=== PATIENT | female | born 1945 | race Caucasian/White ===

== ENCOUNTER 2017-08-29 18:06 | Inpatient (IN) | payer MEDICARE, OTHER ==
[~2017-08-29] VITALS: Ht 152.4 cm; Wt 43.6 kg
[2017-08-29] MEDS ORDERED: METHYL SALICYLATE/MENTHOL TOPICAL OINTMENT 29GM TUBE. TP PRN (19:30)
[2017-08-29] MEDS ORDERED: MAGNESIUM HYDROXIDE 2,400 MG/30 ML ORAL.SUSP. PO PRN (19:30)
[2017-08-29] MEDS ORDERED: MAG HYDROX/AL HYDROX/SIMETH 30 ML ORAL.SUSP PO PRN (19:30)
[2017-08-29 19:56] VITALS: BP 172/75
--- NOTE | 2017-08-29 20:52 | PDOC ---
Exam Note: Alvin Note: Please also refer to the separate dictated note~for this date of service dictated separately.~Patient seen individually. Discussed the patient with Nursing staff reviewed the chart.~Reviewed interim history and current functioning. Reviewed vital signs,~Labs/ Radiology~and current medications noted below. Continue current treatment with the changes noted in the dictated addendum note Assessment: Vital Signs: Vital Signs Date Time Temp Pulse Resp B/P (MAP) Pulse Ox O2 Delivery O2 Flow Rate FiO2 08/29/17 19:56 98.0 67 20 172/75 (107) 94 Current Medications: Meds: Current Medications Acetaminophen (Tylenol) 650 mg PRN Q6HRS PRN PO PAIN / TEMP; Start 08/29/17 at 19:30 Multi-Ingredient Ointment (Analgesic [place]) 1 tia PRN QID PRN TP MUSCLE PAIN; Start 08/29/17 at 19:30 Al Hydroxide/Mg Hydroxide (Mylanta Plus Xs) 15 ml PRN AFTMEALHC PRN PO DYSPEPSIA; Start 08/29/17 at 19:30 Magnesium Hydroxide (Milk Of Magnesia) 2,400 mg PRN QHS PRN PO CONSTIPATION; Start 08/29/17 at 19:30 I have reviewed the current psychotropics carefully including drug interactions. Risk benefit ratio favors no change other than as noted in my dictated progress note. HODA FERRELL MD Aug 29, 2017 20:51
[2017-08-29 20:53] LABS: BASO % 1 % (0-3); EOS # 0.1 x10^3/uL (0.0-0.7); EOS % 2 % (0-3); HEMATOCRIT 34.8 % (36.0-47.0); HEMOGLOBIN 11.8 g/dL (12.0-15.5); LYMPH # 0.6 x10^3/uL (1.0-4.8); LYMPH % 13 % (24-48); MEAN CORPUSCULAR HEMOGLOBIN 33 pg (25-35); MEAN CORPUSCULAR HGB CONC 34 g/dL (31-37); MEAN CORPUSCULAR VOLUME 97 fL (79-100); MONO # 0.5 x10^3/uL (0.0-1.1); MONO % 11 % (0-9); NEUT # 3.1 x10^3uL (1.8-7.7); NEUT % 72 % (31-73); PLATELET COUNT 258 x10^3/uL (140-400); RED BLOOD COUNT 3.59 x10^6/uL (3.50-5.40); RED CELL DISTRIBUTION WIDTH 17.9 % (11.5-14.5); WHITE BLOOD COUNT 4.2 x10^3/uL (4.0-11.0)
[2017-08-29 21:03] LABS: ALBUMIN 3.8 g/dL (3.4-5.0); ALBUMIN/GLOBULIN RATIO 1.2 (1.0-1.7); CALCIUM 9.7 mg/dL (8.5-10.1); CREATININE 0.8 mg/dL (0.6-1.0); GFR 70.7; POTASSIUM 4.3 mmol/L (3.5-5.1); TOTAL BILIRUBIN 0.2 mg/dL (0.2-1.0); TOTAL PROTEIN 7.1 g/dL (6.4-8.2)
[2017-08-29] MEDS ORDERED: DICY10CA3 PO (21:51)
[2017-08-29] MEDS ORDERED: NICO1PAT25 TD (21:51)
[2017-08-29] MEDS ORDERED: OLAN5TAB3 PO (21:51)
[2017-08-29] MEDS ORDERED: LACT1CAP6 PO (21:51)
[2017-08-29] MEDS ORDERED: OXCA300T3 PO (21:51)
[2017-08-29] MEDS ORDERED: DONE5TAB7 PO (21:51)
[2017-08-29] MEDS ORDERED: LAMO150T3 PO (21:51)
[2017-08-29] MEDS ORDERED: PANT40TA5 PO (21:51)
[2017-08-29] MEDS ORDERED: FLUT16SP21 NS (21:51)
[2017-08-29] MEDS ORDERED: IPRA3AMP NEB (21:51)
[2017-08-29] MEDS ORDERED: LOSA50TA2 PO (21:51)
[2017-08-29] MEDS ORDERED: SULF1TAB24 PO (21:51)
[2017-08-29] MEDS ORDERED: LORA1TAB PO (21:51)
[2017-08-29] MEDS ORDERED: MINO2.5T12 PO (21:51)
[2017-08-29] MEDS ORDERED: ESCITALOPRAM OX10 MG PO (21:51)
[2017-08-29] MEDS ORDERED: LORA0.5T PO (21:51)
[2017-08-29] MEDS ORDERED: IPRATRPIUM/ALBUTEROL 0.5/2.5MG 3 ML NEBU. NEB PRN (22:00)
[2017-08-29 22:45] LABS: BILIRUBIN,URINE NEG (NEG); CLARITY,URINE HAZY; COLOR,URINE YELLOW; GLUCOSE,URINE NEG (NEG)
[2017-08-29 22:46] LABS: BACTERIA,URINE MOD /HPF (0-FEW); HYALINE CASTS, URINE FEW /HPF; NITRITE,URINE POS (NEG); SQUAMOUS EPITHELIAL CELL,UR FEW /LPF; UROBILINOGEN,URINE 0.2 mg/dL (0.2 mg/dL); YEAST,URINE PRESENT /HPF
[2017-08-29] MEDS: lamoTRIgine 150 MG TABLET. PO SCH (22:49)
[2017-08-29] MEDS: LORazepam 1 MG TABLET PO SCH (22:49)
[2017-08-29] MEDS: DICYCLOMINE HCL 10 MG CAPSULE PO SCH (22:49)
[2017-08-29] MEDS: DONEPEZIL HCL 5 MG TABLET. PO SCH (22:49)
[2017-08-29] MEDS: SMZ/TMP 800/160MG TABLET. PO SCH (22:49)
[2017-08-30 06:07] VITALS: BP 179/74
[2017-08-30] MEDS: LORazepam 0.5 MG TABLET PO SCH ×2 (10:27→16:03)
[2017-08-30] MEDS: lamoTRIgine 150 MG TABLET. PO SCH ×2 (10:27→20:05)
[2017-08-30] MEDS: SMZ/TMP 800/160MG TABLET. PO SCH ×2 (10:28→20:05)
[2017-08-30] MEDS: CITALOPRAM 20 MG TABLET. PO SCH (10:28)
[2017-08-30] MEDS: DICYCLOMINE HCL 10 MG CAPSULE PO SCH ×2 (10:28→20:05)
[2017-08-30] MEDS: NICOTINE 14MG PATCH. TD SCH (10:28)
[2017-08-30] MEDS: LACTOBACILLUS RHAMNOSUS GG 1 CAPSULE. PO SCH ×2 (10:28→20:05)
[2017-08-30] MEDS: LOSARTAN 50 MG TABLET. PO SCH (10:29)
[2017-08-30] MEDS: PANTOPRAZOLE 40 MG TABLET. PO SCH (10:29)
[2017-08-30] MEDS: MINOXIDIL 2.5 MG TABLET PO SCH (10:30)
[2017-08-30] MEDS: FLUTICASONE 50MCG/NASAL SPRAY 16GM BOTTLE. NS SCH (10:30)
[2017-08-30] MEDS: ACETAMINOPHEN 325 MG TABLET PO PRN ×2 (10:52→21:22)
[2017-08-30 15:36] VITALS: BP 141/71
--- NOTE | 2017-08-30 18:28 | PDOC ---
Exam Note: Alvin Note: Please also refer to the separate dictated note~for this date of service dictated separately.~Patient seen individually. Discussed the patient with Nursing staff reviewed the chart.~Reviewed interim history and current functioning. Reviewed vital signs,~Labs/ Radiology~and current medications noted below. Continue current treatment with the changes noted in the dictated addendum note Assessment: Vital Signs: Vital Signs Date Time Temp Pulse Resp B/P (MAP) Pulse Ox O2 Delivery O2 Flow Rate FiO2 08/30/17 15:36 97.6 84 16 141/71 (94) 95 I&O Intake and Output 08/30/17 07:00 Intake Total 240 ml Output Total 800 ml Balance -560 ml Intake Oral 240 ml Output Urine Total 800 ml # Voids 1 # Bowel Movements 1 Labs: Laboratory Tests Test 08/29/17 19:50 08/29/17 21:00 White Blood Count 4.2 x10^3/uL (4.0-11.0) Red Blood Count 3.59 x10^6/uL (3.50-5.40) Hemoglobin 11.8 g/dL (12.0-15.5) L Hematocrit 34.8 % (36.0-47.0) L Mean Corpuscular Volume 97 fL (79-100) Mean Corpuscular Hemoglobin 33 pg (25-35) Mean Corpuscular Hemoglobin Concent 34 g/dL (31-37) Red Cell Distribution Width 17.9 % (11.5-14.5) H Platelet Count 258 x10^3/uL (140-400) Neutrophils (%) (Auto) 72 % (31-73) Lymphocytes (%) (Auto) 13 % (24-48) L Monocytes (%) (Auto) 11 % (0-9) H Eosinophils (%) (Auto) 2 % (0-3) Basophils (%) (Auto) 1 % (0-3) Neutrophils # (Auto) 3.1 x10^3uL (1.8-7.7) Lymphocytes # (Auto) 0.6 x10^3/uL (1.0-4.8) L Monocytes # (Auto) 0.5 x10^3/uL (0.0-1.1) Eosinophils # (Auto) 0.1 x10^3/uL (0.0-0.7) Basophils # (Auto) 0.0 x10^3/uL (0.0-0.2) Sodium Level 138 mmol/L (136-145) Potassium Level 4.3 mmol/L (3.5-5.1) Chloride Level 101 mmol/L (98-107) Carbon Dioxide Level 26 mmol/L (21-32) Anion Gap 11 (6-14) Blood Urea Nitrogen 20 mg/dL (7-20) Creatinine 0.8 mg/dL (0.6-1.0) Estimated GFR (Cockcroft-Gault) 70.7 BUN/Creatinine Ratio 25 (6-20) H Glucose Level 92 mg/dL (70-99) Calcium Level 9.7 mg/dL (8.5-10.1) Magnesium Level 2.0 mg/dL (1.8-2.4) Total Bilirubin 0.2 mg/dL (0.2-1.0) Aspartate Amino Transferase (AST) 15 U/L (15-37) Alanine Aminotransferase (ALT) 18 U/L (14-59) Alkaline Phosphatase 84 U/L (46-116) Total Protein 7.1 g/dL (6.4-8.2) Albumin 3.8 g/dL (3.4-5.0) Albumin/Globulin Ratio 1.2 (1.0-1.7) Urine Collection Type Unknown Urine Color Yellow Urine Clarity Hazy Urine pH 7.0 Urine Specific [place] 1.015 Urine Protein Neg (NEG-TRACE) Urine Glucose (UA) Neg mg/dL (NEG) Urine Ketones (Stick) Neg mg/dL (NEG) Urine Blood Trace (NEG) Urine Nitrite Pos (NEG) Urine Bilirubin Neg (NEG) Urine Urobilinogen Dipstick 0.2 mg/dL (0.2 mg/dL) Urine Leukocyte Esterase Small (NEG) Urine RBC 3-5 /HPF (0-2) Urine WBC 5-10 /HPF (0-4) Urine Squamous Epithelial Cells Few /LPF Urine Bacteria Mod /HPF (0-FEW) Urine Hyaline Casts Few /HPF Urine Mucus Slight /LPF Urine Yeast Present /HPF Current Medications: Meds: Current Medications Acetaminophen (Tylenol) 650 mg PRN Q6HRS PRN PO PAIN / TEMP Last administered on 08/30/17at 10:52; Start 08/29/17 at 19:30 Multi-Ingredient Ointment (Analgesic [place]) 1 tia PRN QID PRN TP MUSCLE PAIN; Start 08/29/17 at 19:30 Al Hydroxide/Mg Hydroxide (Mylanta Plus Xs) 15 ml PRN AFTMEALHC PRN PO DYSPEPSIA; Start 08/29/17 at 19:30 Magnesium Hydroxide (Milk Of Magnesia) 2,400 mg PRN QHS PRN PO CONSTIPATION; Start 08/29/17 at 19:30 Donepezil HCl (Aricept) 5 mg HS PO Last administered on 08/29/17at 22:49; Start 08/29/17 at 23:00 Lorazepam (Ativan) 0.75 mg BID94 PO Last administered on 08/30/17 16:03; Start 08/30/17 at 09:00 Lorazepam (Ativan) 1 mg HS PO Last administered on 08/29/17at 22:49; Start 08/29 at 23:00 Olanzapine (ZyPREXA) 5 mg PRN BID PRN PO ANXIETY / AGITATION; Start 08/29/17 at 22:00 Dicyclomine HCl (Bentyl) 10 mg BID PO Last administered on 08/30/17at 10:28; Start 08/29/17 at 23:00 Fluticasone Propionate (Flonase) 2 spray DAILY NS Last administered on at 10:30; Start 08/30/17 at 09:00 Albuterol/ Ipratropium (Duoneb) 3 ml PRN Q4HRS PRN NEB SHORTNESS OF BREATH; Start 08/29/17 at 22:00 Lamotrigine (LaMICtal) 150 mg BID PO Last administered on 08/30/17at 10:27; Start 08/29/17 at 23:00 Losartan Potassium (Cozaar) 50 mg DAILY PO Last administered on 08/30/17at 10:29 ; Start 08/30/17 at 09:00 Minoxidil (Loniten) 10 mg DAILY PO Last administered on 08/30/17at 10:30; Start 08/30/17 at 09:00 Nicotine (Nicoderm Cq 14mg) 1 patch DAILY TD Last administered on 08/30/17at 10: 28; Start 08/30/17 at 09:00 Oxcarbazepine (Trileptal) 600 mg BID PO Last administered on 08/30/17 10:28; Start 08/30/17 at 09:00 Pantoprazole Sodium (Protonix) 40 mg DAILY PO Last administered on 08/30/17at 10 :29; Start 08/30/17 at 09:00 Trimethoprim/ Sulfamethoxazole (Bactrim Ds) 1 tab BID PO Last administered on 10:28; Start 08/29/17 at 23:00 Citalopram Hydrobromide (CeleXA) 20 mg DAILY PO Last administered on 08/30/17 10:28; Start 08/30/17 at 09:00 Lactobacillus Rhamnosus (Culturelle) 1 cap BID PO Last administered on 10:28; Start 08/30/17 at 09:00 Active Scripts Active Reported Bactrim Ds Tablet (Sulfamethoxazole/Trimethoprim) 1 Each Tablet 1 Each PO BID Pantoprazole Sodium 40 Mg Tablet.dr 40 Mg PO DAILY Trileptal (Oxcarbazepine) 300 Mg Tablet 600 Mg PO BID Zyprexa (Olanzapine) 5 Mg Tablet 5 Mg PO PRN BID PRN NICODERM CQ 14mg (Nicotine) 1 Each Patch.td24 1 Patch TD DAILY Minoxidil 2.5 Mg Tablet 10 Mg PO DAILY Cozaar (Losartan Potassium) 50 Mg Tablet 50 Mg PO DAILY Lorazepam 1 Mg Tablet 1 Mg PO HS Lorazepam 0.5 Mg Tablet 0.75 Mg PO BID94 Lamictal (Lamotrigine) 150 Mg Tablet 150 Mg PO BID Probiotic (Lactobacillus Acidophilus) 1 Each Capsule 1 Each PO TIDWMEALS Duoneb 0.5-3(2.5) Mg/3 Ml (Albuterol/Ipratropium) 3 Ml Ampul.neb 3 Ml NEB PRN Q4HRS PRN Fluticasone Propionate Nasal [place] (Fluticasone Propionate) 16 Gm [place].susp 2 [place] NS DAILY Escitalopram Oxalate 10 Mg Tablet 10 Mg PO DAILY Donepezil Hcl 5 Mg Tablet 5 Mg PO HS Dicyclomine Hcl 10 Mg Capsule 10 Mg PO BID I have reviewed the current psychotropics carefully including drug interactions. Risk benefit ratio favors no change other than as noted in my dictated progress note. Diagnosis: Problems: (1) Anxiety disorder (2) Dementia in Alzheimer's disease with delusions (3) Dementia in Alzheimer's disease with depression (4) Impulse control disorder (5) Dementia, vascular, with delusions (6) Dementia, vascular, with depression (7) Major depressive disorder, recurrent episode (8) Psychotic depression HODA FERRELL MD Aug 30, 2017 18:28
--- NOTE | 2017-08-30 19:06 | HP ---
ADMIT DATE: 08/30/2017 This note covers elements not covered in my initial note of 08/30/2017. The patient was seen individually evening of 08/30/2017. Discussed with nursing staff, reviewed the chart. Previously, I had discussed with nursing staff on 2 or 3 occasions to review history resulting in this referral to us from [facility]. The patient was initially sent to the Emergency Room at [facility] [place] and then admitted to inpatient service before we were called on account of her suicidal ideation. IDENTIFYING DATA: The patient is a 72-year-old female who resides at [facility]. She has been increasingly confused, recently getting combative, hitting, scratching at staff, verbally abusive to staff. She banged her head on the wall and made suicidal statements. She said she had a suicidal plan. Has been noted to be very needy, disruptive, attention seeking, depressed, psychotic and confused. She has failed outpatient psychiatric interventions resulting in this referral. CHIEF COMPLAINT: "I get frustrated very easily." HISTORY OF PRESENT ILLNESS: The patient has a history of worsening symptoms of depression, feeling hopeless, helpless, worthless, paranoia, marked agitation, mood swings, worsening confusion. She has had some sleep and appetite changes, appeared paranoid. No active homicidal ideation. No clear history of bipolar disorder. She has been increasingly confused. PAST PSYCHIATRIC HISTORY: As above. MEDICAL HISTORY: COPD, hypertension, hyperlipidemia, neuropathy, seizure disorder, history of UTIs, history of pneumonia. ACCU-CHEKS: None. DIET: Regular. Takes her medications whole, ambulates wheelchair with 1 person assist. CODE STATUS: Full code. DRUG ALLERGIES: Negative. CURRENT PSYCHOTROPICS: Aricept 5 mg at bedtime, Lexapro 10 mg a day, Ativan 0.75 mg b.i.d. and 1 mg at bedtime, Zyprexa 5 mg b.i.d. p.r.n. FAMILY HISTORY: Noncontributory. SOCIAL HISTORY: Positive history of alcohol abuse, though she is unable to tell me details as I questioned her on this. She states she worked and lived most of her life in [facility] moved to this area to get away from the crowded space in that area. No physical, sexual or elder abuse history is noted. She is not known to be a perpetrator. MENTAL STATUS EXAMINATION: The patient was seen individually evening of 08/30/2017. She is oriented to herself and situation, knew that she was admitted the previous evening, knew it was 08/2017. Short term memory nevertheless is somewhat impaired. Attention span short. Mood is depressed, anxious. She is paranoid, suspicious. Denies active suicidal ideation. Attention span short. Language function intact. REACTION TO HOSPITALIZATION: The patient accepting of this. ASSETS: Stable living at the above facility, supportive family. IMPRESSION: Major depressive disorder, recurrent, severe with psychotic features; major neurocognitive disorder, early Alzheimer, vascular with delusion, depression; anxiety disorder, unspecified; impulse control disorder, unspecified. Rest as above. PLAN: Admit to geropsychiatry unit at [facility]. I will see the patient daily individually from a psychiatric standpoint. Medical followup per Dr. Da Silva/Dr Moreno. Continue current psychotropics, observe baseline and adjust as clinically indicated. MAN Lavon FERRELL MD DR: ETHAN/hernesto JOB#: [id number] / [id number]
[2017-08-30] MEDS: LORazepam 1 MG TABLET PO SCH (20:04)
[2017-08-30] MEDS: DONEPEZIL HCL 5 MG TABLET. PO SCH (20:04)
[2017-08-30 20:11] LABS: T3 TOTAL 71 ng/dL (71-180); THYROXINE 5.9 ug/dL (4.5-12.0)
--- NOTE | 2017-08-30 20:52 | PDOC ---
Exam Note: Alvin Note: Please also refer to the separate dictated note~for this date of service dictated separately.~Patient seen individually. Discussed the patient with Nursing staff reviewed the chart.~Reviewed interim history and current functioning. Reviewed vital signs,~Labs/ Radiology~and current medications noted below. Continue current treatment with the changes noted in the dictated addendum note Assessment: Vital Signs: Vital Signs Date Time Temp Pulse Resp B/P (MAP) Pulse Ox O2 Delivery O2 Flow Rate FiO2 08/30/17 15:36 97.6 84 16 141/71 (94) 95 I&O Intake and Output 08/30/17 07:00 Intake Total 240 ml Output Total 800 ml Balance -560 ml Intake Oral 240 ml Output Urine Total 800 ml # Voids 1 # Bowel Movements 1 Labs: Laboratory Tests Test 08/29/17 21:00 Urine Collection Type Unknown Urine Color Yellow Urine Clarity Hazy Urine pH 7.0 Urine Specific [place] 1.015 Urine Protein Neg (NEG-TRACE) Urine Glucose (UA) Neg mg/dL (NEG) Urine Ketones (Stick) Neg mg/dL (NEG) Urine Blood Trace (NEG) Urine Nitrite Pos (NEG) Urine Bilirubin Neg (NEG) Urine Urobilinogen Dipstick 0.2 mg/dL (0.2 mg/dL) Urine Leukocyte Esterase Small (NEG) Urine RBC 3-5 /HPF (0-2) Urine WBC 5-10 /HPF (0-4) Urine Squamous Epithelial Cells Few /LPF Urine Bacteria Mod /HPF (0-FEW) Urine Hyaline Casts Few /HPF Urine Mucus Slight /LPF Urine Yeast Present /HPF Current Medications: Meds: Current Medications Acetaminophen (Tylenol) 650 mg PRN Q6HRS PRN PO PAIN / TEMP Last administered on 08/30/17at 10:52; Start 08/29/17 at 19:30 Multi-Ingredient Ointment (Analgesic [place]) 1 tia PRN QID PRN TP MUSCLE PAIN; Start 08/29/17 at 19:30 Al Hydroxide/Mg Hydroxide (Mylanta Plus Xs) 15 ml PRN AFTMEALHC PRN PO DYSPEPSIA; Start 08/29/17 at 19:30 Magnesium Hydroxide (Milk Of Magnesia) 2,400 mg PRN QHS PRN PO CONSTIPATION; Start 08/29/17 at 19:30 Donepezil HCl (Aricept) 5 mg HS PO Last administered on 08/30/17 20:04; Start 08/29/17 at 23:00 Lorazepam (Ativan) 0.75 mg BID94 PO Last administered on 08/30/17 16:03; Start 08/30/17 at 09:00 Lorazepam (Ativan) 1 mg HS PO Last administered on 08/30/17 20:04; Start 08/29 at 23:00 Olanzapine (ZyPREXA) 5 mg PRN BID PRN PO ANXIETY / AGITATION; Start 08/29/17 at 22:00 Dicyclomine HCl (Bentyl) 10 mg BID PO Last administered on 08/30/17 20:05; Start 08/29/17 at 23:00 Fluticasone Propionate (Flonase) 2 spray DAILY NS Last administered on 10:30; Start 08/30/17 at 09:00 Albuterol/ Ipratropium (Duoneb) 3 ml PRN Q4HRS PRN NEB SHORTNESS OF BREATH; Start 08/29/17 at 22:00 Lamotrigine (LaMICtal) 150 mg BID PO Last administered on 08/30/17 20:05; Start 08/29/17 at 23:00 Losartan Potassium (Cozaar) 50 mg DAILY PO Last administered on 08/30/17 10:29 ; Start 08/30/17 at 09:00 Minoxidil (Loniten) 10 mg DAILY PO Last administered on 08/30/17 10:30; Start 08/30/17 at 09:00 Nicotine (Nicoderm Cq 14mg) 1 patch DAILY TD Last administered on 08/30/17 10: 28; Start 08/30/17 at 09:00 Oxcarbazepine (Trileptal) 600 mg BID PO Last administered on 08/30/17 20:05; Start 08/30/17 at 09:00 Pantoprazole Sodium (Protonix) 40 mg DAILY PO Last administered on 08/30/17 10 :29; Start 08/30/17 at 09:00 Trimethoprim/ Sulfamethoxazole (Bactrim Ds) 1 tab BID PO Last administered on 20:05; Start 08/29/17 at 23:00 Citalopram Hydrobromide (CeleXA) 20 mg DAILY PO Last administered on 08/30/17at 10:28; Start 08/30/17 at 09:00 Lactobacillus Rhamnosus (Culturelle) 1 cap BID PO Last administered on at 20:05; Start 08/30/17 at 09:00 Active Scripts Active Reported Bactrim Ds Tablet (Sulfamethoxazole/Trimethoprim) 1 Each Tablet 1 Each PO BID Pantoprazole Sodium 40 Mg Tablet.dr 40 Mg PO DAILY Trileptal (Oxcarbazepine) 300 Mg Tablet 600 Mg PO BID Zyprexa (Olanzapine) 5 Mg Tablet 5 Mg PO PRN BID PRN NICODERM CQ 14mg (Nicotine) 1 Each Patch.td24 1 Patch TD DAILY Minoxidil 2.5 Mg Tablet 10 Mg PO DAILY Cozaar (Losartan Potassium) 50 Mg Tablet 50 Mg PO DAILY Lorazepam 1 Mg Tablet 1 Mg PO HS Lorazepam 0.5 Mg Tablet 0.75 Mg PO BID94 Lamictal (Lamotrigine) 150 Mg Tablet 150 Mg PO BID Probiotic (Lactobacillus Acidophilus) 1 Each Capsule 1 Each PO TIDWMEALS Duoneb 0.5-3(2.5) Mg/3 Ml (Albuterol/Ipratropium) 3 Ml Ampul.neb 3 Ml NEB PRN Q4HRS PRN Fluticasone Propionate Nasal [place] (Fluticasone Propionate) 16 Gm [place].susp 2 [place] NS DAILY Escitalopram Oxalate 10 Mg Tablet 10 Mg PO DAILY Donepezil Hcl 5 Mg Tablet 5 Mg PO HS Dicyclomine Hcl 10 Mg Capsule 10 Mg PO BID I have reviewed the current psychotropics carefully including drug interactions. Risk benefit ratio favors no change other than as noted in my dictated progress note. Diagnosis: Problems: (1) Anxiety disorder (2) Impulse control disorder (3) Psychotic depression (4) Major depressive disorder, recurrent episode (5) Dementia, vascular, with depression (6) Dementia, vascular, with delusions (7) Dementia in Alzheimer's disease with depression (8) Dementia in Alzheimer's disease with delusions HODA FERRELL MD Aug 30, 2017 20:52
[2017-08-30 23:32] LABS: THYROID STIM HORMONE (TSH) 1.38 uIU/mL (0.358-3.740)
[2017-08-30 23:53] VITALS: BP 159/85
--- NOTE | 2017-08-31 01:43 | CONS ---
DATE OF CONSULTATION: 08/30/2017 REASON FOR CONSULTATION: Medical management. HISTORY OF PRESENT ILLNESS: The patient is a 72-year-old resident at [facility], who was admitted on the account of being combative, hitting and scratching verbally abusive towards staff, banged her head on the wall and made suicidal attempt, has suicidal ideation plan, very needy, disruptive and attention seeking, all this in a background of dementia with depression and behavioral disturbances. PAST MEDICAL HISTORY: Significant for COPD, hypertension, hyperlipidemia, neuropathy, seizure disorder, history of urinary tract infection, history of pneumonia. PAST PSYCHIATRIC HISTORY: Significant for dementia with depression with significant behavioral disturbances. PAST SURGICAL HISTORY: Unobtainable. FAMILY HISTORY: Unremarkable SOCIAL HISTORY: She is a resident at [facility]. She does not smoke, drink alcohol or use any recreational drugs. REVIEW OF SYSTEMS: Unobtainable. PHYSICAL EXAMINATION: GENERAL: On examining her, she was sitting comfortably in her chair, eating her supper, in no apparent distress, was pale, but no jaundice, cyanosis or thyromegaly. No jugular venous distension. No lower limb edema. VITAL SIGNS: Her heart rate was 84, blood pressure 141/71, temperature was 97.6, respiratory rate was 16, and oxygen saturation was 95% on room air. HEAD, EYES, EARS, NOSE AND THROAT: Showed normocephalic, atraumatic. NECK: Supple. HEART: Showed normal first and second heart sounds with no gallop, rub or murmur. CHEST: Clear to auscultation. No crepitation or rhonchi. ABDOMEN: Distended, soft, nontender. NEUROLOGIC: She is demented, but without any obvious lateralizing sign. All cranial nerves are intact. EXTREMITIES: She moves extremities without difficulty. LABORATORY DATA: As of this morning showed white cell count was 4200, hemoglobin 11.8, hematocrit 34, MCV 97 and platelet count 258,000. Her serum sodium was 138, potassium 4.3, chloride was 101, bicarbonate 26, anion gap of 11, BUN 20, creatinine 0.8. Estimated GFR was 70 mL per minute. Her glucose was 92. Calcium was 9.7. Magnesium 2. Total bilirubin, AST, ALT, alkaline phosphatase were normal. Total protein was 7.1, albumin was 3.8 and urinalysis showed the urine was yellow, hazy with a pH of 7, specific gravity 1.017. The urine was negative for protein, glucose and ketones. There was trace amount of blood. Urine was positive for nitrite, negative for bilirubin. There was small amount of leukocyte esterase, 3-5 rbc's, 5-10 wbc's. There was moderate amount of urine. IMPRESSION: In summary, this is a 72-year-old female patient, who was admitted on account of being combative, hitting and scratching, verbally abusive towards the staff, banging her head on the wall and made suicidal attempts, suicidal ideation and very needy, very disruptive, aggressive, and attention seeking. So far, all her vital signs and her lab works are stable. I would continue with current plan of management and decide further management accordingly. 08/31/2017Thank you Dr. Leon for allowing me to participate in the care of this patient. SARAHI WALLER MD DR: LUIS/hernesto JOB#: [id number] / [id number]
[2017-08-31 04:09] LABS: HEMOGLOBIN A1C 4.8 % (4.8-5.6)
[2017-08-31 06:36] VITALS: BP 162/76
[2017-08-31] MEDS: PANTOPRAZOLE 40 MG TABLET. PO SCH (09:00)
[2017-08-31] MEDS: LACTOBACILLUS RHAMNOSUS GG 1 CAPSULE. PO SCH ×2 (09:00→19:42)
[2017-08-31] MEDS: SMZ/TMP 800/160MG TABLET. PO SCH (09:00)
[2017-08-31] MEDS: FLUTICASONE 50MCG/NASAL SPRAY 16GM BOTTLE. NS SCH ×2 (09:00→09:02)
[2017-08-31] MEDS: NICOTINE 14MG PATCH. TD SCH (09:00)
[2017-08-31] MEDS: DICYCLOMINE HCL 10 MG CAPSULE PO SCH ×2 (09:00→19:42)
[2017-08-31] MEDS: LOSARTAN 50 MG TABLET. PO SCH (09:01)
[2017-08-31] MEDS: lamoTRIgine 150 MG TABLET. PO SCH ×2 (09:01→19:42)
[2017-08-31] MEDS: CITALOPRAM 20 MG TABLET. PO SCH (09:01)
[2017-08-31] MEDS: MINOXIDIL 2.5 MG TABLET PO SCH (09:02)
[2017-08-31] MEDS: LORazepam 0.5 MG TABLET PO SCH ×2 (09:05→16:31)
[2017-08-31] MEDS: ACETAMINOPHEN 325 MG TABLET PO PRN ×2 (10:20→20:12)
[2017-08-31] MEDS: OLANZapine 5 MG TABLET PO PRN (13:28)
[2017-08-31 16:13] VITALS: BP 146/92
[2017-08-31] MEDS: DONEPEZIL HCL 5 MG TABLET. PO SCH (19:42)
[2017-08-31] MEDS: AMOXICILLIN 250 MG CAPSULE PO SCH (19:44)
[2017-08-31] MEDS: CIPROFLOXACIN HCL 250 MG TABLET PO SCH (19:44)
--- NOTE | 2017-08-31 20:47 | PDOC ---
Exam Note: Alvin Note: Please also refer to the separate dictated note~for this date of service dictated separately.~Patient seen individually. Discussed the patient with Nursing staff reviewed the chart.~Reviewed interim history and current functioning. Reviewed vital signs,~Labs/ Radiology~and current medications noted below. Continue current treatment with the changes noted in the dictated addendum note Assessment: Vital Signs: Vital Signs Date Time Temp Pulse Resp B/P (MAP) Pulse Ox O2 Delivery O2 Flow Rate FiO2 08/31/17 16:13 99.0 86 16 146/92 (110) 95 I&O Intake and Output 08/31/17 07:00 Intake Total 600 ml Balance 600 ml Intake Oral 600 ml # Bowel Movements 1 Current Medications: Meds: Current Medications Acetaminophen (Tylenol) 650 mg PRN Q6HRS PRN PO PAIN / TEMP Last administered on 08/31/17at 20:12; Start 08/29/17 at 19:30 Multi-Ingredient Ointment (Analgesic [place]) 1 tia PRN QID PRN TP MUSCLE PAIN; Start 08/29/17 at 19:30 Al Hydroxide/Mg Hydroxide (Mylanta Plus Xs) 15 ml PRN AFTMEALHC PRN PO DYSPEPSIA; Start 08/29/17 at 19:30 Magnesium Hydroxide (Milk Of Magnesia) 2,400 mg PRN QHS PRN PO CONSTIPATION; Start 08/29/17 at 19:30 Donepezil HCl (Aricept) 5 mg HS PO Last administered on 08/31/17at 19:42; Start 08/29/17 at 23:00 Lorazepam (Ativan) 0.75 mg [id number] PO Last administered on 08/31/17at 16:31; Start 08/30/17 at 09:00 Lorazepam (Ativan) 1 mg HS PO Last administered on 08/30/17at 20:04; Start 08/29 at 23:00; Stop 08/31/17 at 18:25; Status DC Olanzapine (ZyPREXA) 5 mg PRN BID PRN PO ANXIETY / AGITATION; Start 08/29/17 at 22:00 Dicyclomine HCl (Bentyl) 10 mg BID PO Last administered on 08/31/17at 19:42; Start 08/29/17 at 23:00 Fluticasone Propionate (Flonase) 2 spray DAILY NS Last administered on 10:30; Start 08/30/17 at 09:00 Albuterol/ Ipratropium (Duoneb) 3 ml PRN Q4HRS PRN NEB SHORTNESS OF BREATH; Start 08/29/17 at 22:00 Lamotrigine (LaMICtal) 150 mg BID PO Last administered on 08/31/17 19:42; Start 08/29/17 at 23:00 Losartan Potassium (Cozaar) 50 mg DAILY PO Last administered on 08/31/17 09:01 ; Start 08/30/17 at 09:00 Minoxidil (Loniten) 10 mg DAILY PO Last administered on 08/31/17 09:02; Start 08/30/17 at 09:00 Nicotine (Nicoderm Cq 14mg) 1 patch DAILY TD Last administered on 08/30/17 10: 28; Start 08/30/17 at 09:00 Oxcarbazepine (Trileptal) 600 mg BID PO Last administered on 08/31/17 19:42; Start 08/30/17 at 09:00 Pantoprazole Sodium (Protonix) 40 mg DAILY PO Last administered on 08/31/17 09 :00; Start 08/30/17 at 09:00 Trimethoprim/ Sulfamethoxazole (Bactrim Ds) 1 tab BID PO Last administered on 09:00; Start 08/29/17 at 23:00; Stop 08/31/17 at 16:19; Status DC Citalopram Hydrobromide (CeleXA) 20 mg DAILY PO Last administered on 08/31/17 09:01; Start 08/30/17 at 09:00 Lactobacillus Rhamnosus (Culturelle) 1 cap BID PO Last administered on 19:42; Start 08/30/17 at 09:00 Amoxicillin (Amoxil) 500 mg [id number] PO Last administered on 08/31/17 19:44; Start 08/31/17 at 21:00 Ciprofloxacin (Cipro) 250 mg BID PO Last administered on 08/31/17 19:44; Start 08/31/17 at 21:00 Lactobacillus Rhamnosus (Culturelle) 1 cap BID PO ; Start 08/31/17 at 21:00; Stop 08/31/17 at 21:00; Status DC Lorazepam (Ativan) 0.75 mg HS PO ; Start 09/01/17 at 21:00 Lorazepam (Ativan) 1 mg QHS PO Last administered on 08/31/17at 19:42; Start at 21:00; Stop 09/01/17 at 20:30 Active Scripts Active Reported Bactrim Ds Tablet (Sulfamethoxazole/Trimethoprim) 1 Each Tablet 1 Each PO BID Pantoprazole Sodium 40 Mg Tablet.dr 40 Mg PO DAILY Trileptal (Oxcarbazepine) 300 Mg Tablet 600 Mg PO BID Zyprexa (Olanzapine) 5 Mg Tablet 5 Mg PO PRN BID PRN NICODERM CQ 14mg (Nicotine) 1 Each Patch.td24 1 Patch TD DAILY Minoxidil 2.5 Mg Tablet 10 Mg PO DAILY Cozaar (Losartan Potassium) 50 Mg Tablet 50 Mg PO DAILY Lorazepam 1 Mg Tablet 1 Mg PO HS Lorazepam 0.5 Mg Tablet 0.75 Mg PO BID94 Lamictal (Lamotrigine) 150 Mg Tablet 150 Mg PO BID Probiotic (Lactobacillus Acidophilus) 1 Each Capsule 1 Each PO TIDWMEALS Duoneb 0.5-3(2.5) Mg/3 Ml (Albuterol/Ipratropium) 3 Ml Ampul.neb 3 Ml NEB PRN Q4HRS PRN Fluticasone Propionate Nasal [place] (Fluticasone Propionate) 16 Gm [place].susp 2 [place] NS DAILY Escitalopram Oxalate 10 Mg Tablet 10 Mg PO DAILY Donepezil Hcl 5 Mg Tablet 5 Mg PO HS Dicyclomine Hcl 10 Mg Capsule 10 Mg PO BID I have reviewed the current psychotropics carefully including drug interactions. Risk benefit ratio favors no change other than as noted in my dictated progress note. 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
[2017-08-31] MEDS ORDERED: LACTOBACILLUS RHAMNOSUS GG 1 CAPSULE. PO SCH (21:00)
[2017-08-31] MEDS ORDERED: LORazepam 1 MG TABLET PO SCH (21:00)
[2017-09-01 06:26] VITALS: BP 194/104
[2017-09-01] MEDS: LOSARTAN 50 MG TABLET. PO SCH (06:26)
[2017-09-01] MEDS: MINOXIDIL 2.5 MG TABLET PO SCH (06:27)
[2017-09-01] MEDS: ACETAMINOPHEN 325 MG TABLET PO PRN ×3 (06:30→19:48)
[2017-09-01] MEDS: DICYCLOMINE HCL 10 MG CAPSULE PO SCH ×2 (08:38→19:48)
[2017-09-01] MEDS: CIPROFLOXACIN HCL 250 MG TABLET PO SCH ×2 (08:38→19:48)
[2017-09-01] MEDS: lamoTRIgine 150 MG TABLET. PO SCH ×2 (08:39→19:48)
[2017-09-01] MEDS: PANTOPRAZOLE 40 MG TABLET. PO SCH (08:39)
[2017-09-01] MEDS: LACTOBACILLUS RHAMNOSUS GG 1 CAPSULE. PO SCH ×2 (08:39→19:48)
[2017-09-01] MEDS: CITALOPRAM 20 MG TABLET. PO SCH (08:39)
[2017-09-01] MEDS: AMOXICILLIN 250 MG CAPSULE PO SCH ×3 (08:39→19:48)
[2017-09-01] MEDS: FLUTICASONE 50MCG/NASAL SPRAY 16GM BOTTLE. NS SCH ×2 (08:39→09:00)
[2017-09-01] MEDS: LORazepam 0.5 MG TABLET PO SCH ×3 (08:39→19:51)
[2017-09-01] MEDS: NICOTINE 14MG PATCH. TD SCH ×2 (08:40→09:00)
[2017-09-01 08:45] VITALS: BP 136/74
[2017-09-01] MEDS: OLANZapine 5 MG TABLET PO PRN (14:24)
[2017-09-01 16:26] VITALS: BP 126/86
--- NOTE | 2017-09-01 19:44 | PDOC ---
Exam Note: Alvin Note: Please also refer to the separate dictated note~for this date of service dictated separately.~Patient seen individually. Discussed the patient with Nursing staff reviewed the chart.~Reviewed interim history and current functioning. Reviewed vital signs,~Labs/ Radiology~and current medications noted below. Continue current treatment with the changes noted in the dictated addendum note Assessment: Vital Signs: Vital Signs Date Time Temp Pulse Resp B/P (MAP) Pulse Ox O2 Delivery O2 Flow Rate FiO2 09/01/17 16:26 97.5 79 18 126/86 (99) 97 Room Air I&O Intake and Output 09/01/17 07:00 Intake Total 600 ml Output Total 900 ml Balance -300 ml Intake Oral 600 ml Output Urine Total 900 ml # Bowel Movements 1 Current Medications: Meds: Current Medications Acetaminophen (Tylenol) 650 mg PRN Q6HRS PRN PO PAIN / TEMP Last administered on 09/01/17at 12:51; Start 08/29/17 at 19:30 Multi-Ingredient Ointment (Analgesic [place]) 1 tia PRN QID PRN TP MUSCLE PAIN; Start 08/29/17 at 19:30 Al Hydroxide/Mg Hydroxide (Mylanta Plus Xs) 15 ml PRN AFTMEALHC PRN PO DYSPEPSIA; Start 08/29/17 at 19:30 Magnesium Hydroxide (Milk Of Magnesia) 2,400 mg PRN QHS PRN PO CONSTIPATION; Start 08/29/17 at 19:30 Donepezil HCl (Aricept) 5 mg HS PO Last administered on 08/31/17at 19:42; Start 08/29/17 at 23:00 Lorazepam (Ativan) 0.75 mg [id number] PO Last administered on 09/01/17at 16:13; Start 08/30/17 at 09:00 Lorazepam (Ativan) 1 mg HS PO Last administered on 08/30/17at 20:04; Start 08/29 at 23:00; Stop 08/31/17 at 18:25; Status DC Olanzapine (ZyPREXA) 5 mg PRN BID PRN PO ANXIETY / AGITATION Last administered on 09/01/17at 14:24; Start 08/29/17 at 22:00 Dicyclomine HCl (Bentyl) 10 mg BID PO Last administered on 09/01/17at 08:38; Start 08/29/17 at 23:00 Fluticasone Propionate (Flonase) 2 spray DAILY NS Last administered on 10:30; Start 08/30/17 at 09:00 Albuterol/ Ipratropium (Duoneb) 3 ml PRN Q4HRS PRN NEB SHORTNESS OF BREATH; Start 08/29/17 at 22:00 Lamotrigine (LaMICtal) 150 mg BID PO Last administered on 09/01/17 08:39; Start 08/29/17 at 23:00 Losartan Potassium (Cozaar) 50 mg DAILY PO Last administered on 09/01/17 06:26 ; Start 08/30/17 at 09:00 Minoxidil (Loniten) 10 mg DAILY PO Last administered on 09/01/17 06:27; Start 08/30/17 at 09:00 Nicotine (Nicoderm Cq 14mg) 1 patch DAILY TD Last administered on 08/30/17 10: 28; Start 08/30/17 at 09:00 Oxcarbazepine (Trileptal) 600 mg BID PO Last administered on 09/01/17 08:39; Start 08/30/17 at 09:00 Pantoprazole Sodium (Protonix) 40 mg DAILY PO Last administered on 09/01/17 08 :39; Start 08/30/17 at 09:00 Trimethoprim/ Sulfamethoxazole (Bactrim Ds) 1 tab BID PO Last administered on 09:00; Start 08/29/17 at 23:00; Stop 08/31/17 at 16:19; Status DC Citalopram Hydrobromide (CeleXA) 20 mg DAILY PO Last administered on 09/01/17 08:39; Start 08/30/17 at 09:00; Stop 09/01/17 at 18:32; Status DC Lactobacillus Rhamnosus (Culturelle) 1 cap BID PO Last administered on 08:39; Start 08/30/17 at 09:00 Amoxicillin (Amoxil) 500 mg [id number] PO Last administered on 09/01/17 14:24; Start 08/31/17 at 21:00 Ciprofloxacin (Cipro) 250 mg BID PO Last administered on 09/01/17at 08:38; Start 08/31/17 at 21:00 Lactobacillus Rhamnosus (Culturelle) 1 cap BID PO ; Start 08/31/17 at 21:00; Stop 08/31/17 at 21:00; Status DC Lorazepam (Ativan) 0.75 mg HS PO ; Start 09/01/17 at 21:00 Lorazepam (Ativan) 1 mg QHS PO Last administered on 08/31/17at 19:42; Start at 21:00; Stop 09/01/17 at 20:30 Fluvoxamine Maleate (Luvox) 25 mg QHS PO ; Start 09/01/17 at 21:00 Active Scripts Active Reported Bactrim Ds Tablet (Sulfamethoxazole/Trimethoprim) 1 Each Tablet 1 Each PO BID Pantoprazole Sodium 40 Mg Tablet.dr 40 Mg PO DAILY Trileptal (Oxcarbazepine) 300 Mg Tablet 600 Mg PO BID Zyprexa (Olanzapine) 5 Mg Tablet 5 Mg PO PRN BID PRN NICODERM CQ 14mg (Nicotine) 1 Each Patch.td24 1 Patch TD DAILY Minoxidil 2.5 Mg Tablet 10 Mg PO DAILY Cozaar (Losartan Potassium) 50 Mg Tablet 50 Mg PO DAILY Lorazepam 1 Mg Tablet 1 Mg PO HS Lorazepam 0.5 Mg Tablet 0.75 Mg PO BID94 Lamictal (Lamotrigine) 150 Mg Tablet 150 Mg PO BID Probiotic (Lactobacillus Acidophilus) 1 Each Capsule 1 Each PO TIDWMEALS Duoneb 0.5-3(2.5) Mg/3 Ml (Albuterol/Ipratropium) 3 Ml Ampul.neb 3 Ml NEB PRN Q4HRS PRN Fluticasone Propionate Nasal [place] (Fluticasone Propionate) 16 Gm [place].susp 2 [place] NS DAILY Escitalopram Oxalate 10 Mg Tablet 10 Mg PO DAILY Donepezil Hcl 5 Mg Tablet 5 Mg PO HS Dicyclomine Hcl 10 Mg Capsule 10 Mg PO BID I have reviewed the current psychotropics carefully including drug interactions. Risk benefit ratio favors no change other than as noted in my dictated progress note. 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
[2017-09-01] MEDS: DONEPEZIL HCL 5 MG TABLET. PO SCH (19:48)
[2017-09-02 06:19] VITALS: BP 137/60
[2017-09-02] MEDS: PANTOPRAZOLE 40 MG TABLET. PO SCH (08:59)
[2017-09-02] MEDS: AMOXICILLIN 250 MG CAPSULE PO SCH ×3 (08:59→19:59)
[2017-09-02] MEDS: LORazepam 0.5 MG TABLET PO SCH ×3 (08:59→21:08)
[2017-09-02] MEDS: lamoTRIgine 150 MG TABLET. PO SCH ×2 (08:59→19:58)
[2017-09-02] MEDS: DICYCLOMINE HCL 10 MG CAPSULE PO SCH ×2 (08:59→20:00)
[2017-09-02] MEDS: LACTOBACILLUS RHAMNOSUS GG 1 CAPSULE. PO SCH ×2 (08:59→19:59)
[2017-09-02] MEDS: MINOXIDIL 2.5 MG TABLET PO SCH (09:00)
[2017-09-02] MEDS: CIPROFLOXACIN HCL 250 MG TABLET PO SCH ×2 (09:00→20:03)
[2017-09-02] MEDS: NICOTINE 14MG PATCH. TD SCH ×2 (09:00→09:01)
[2017-09-02] MEDS: LOSARTAN 50 MG TABLET. PO SCH (09:00)
[2017-09-02] MEDS: FLUTICASONE 50MCG/NASAL SPRAY 16GM BOTTLE. NS SCH (09:02)
[2017-09-02] MEDS: OLANZapine 5 MG TABLET PO PRN (13:04)
[2017-09-02] MEDS: ACETAMINOPHEN 325 MG TABLET PO PRN ×2 (14:11→23:19)
[2017-09-02 16:47] VITALS: BP 128/55
[2017-09-02] MEDS: DONEPEZIL HCL 5 MG TABLET. PO SCH (20:00)
--- NOTE | 2017-09-02 22:09 | PDOC ---
Exam Note: Alvin Note: Please also refer to the separate dictated note~for this date of service dictated separately.~Patient seen individually. Discussed the patient with Nursing staff reviewed the chart.~Reviewed interim history and current functioning. Reviewed vital signs,~Labs/ Radiology~and current medications noted below. Continue current treatment with the changes noted in the dictated addendum note Assessment: Vital Signs: Vital Signs Date Time Temp Pulse Resp B/P (MAP) Pulse Ox O2 Delivery O2 Flow Rate FiO2 09/02/17 16:47 97.8 98 18 128/55 (79) 97 09/01/17 16:26 Room Air I&O Intake and Output 09/02/17 07:00 Intake Total 1320 ml Output Total 50 ml Balance 1270 ml Intake Oral 1320 ml Output Urine Total 50 ml # Bowel Movements 1 Current Medications: Meds: Current Medications Acetaminophen (Tylenol) 650 mg PRN Q6HRS PRN PO PAIN / TEMP Last administered on 09/02/17at 14:11; Start 08/29/17 at 19:30 Multi-Ingredient Ointment (Analgesic [place]) 1 tia PRN QID PRN TP MUSCLE PAIN; Start 08/29/17 at 19:30 Al Hydroxide/Mg Hydroxide (Mylanta Plus Xs) 15 ml PRN AFTMEALHC PRN PO DYSPEPSIA; Start 08/29/17 at 19:30 Magnesium Hydroxide (Milk Of Magnesia) 2,400 mg PRN QHS PRN PO CONSTIPATION; Start 08/29/17 at 19:30 Donepezil HCl (Aricept) 5 mg HS PO Last administered on 09/02/17at 20:00; Start 08/29/17 at 23:00 Lorazepam (Ativan) 0.75 mg [id number] PO Last administered on 09/02/17at 16:30; Start 08/30/17 at 09:00 Lorazepam (Ativan) 1 mg HS PO Last administered on 08/30/17at 20:04; Start 08/29 at 23:00; Stop 08/31/17 at 18:25; Status DC Olanzapine (ZyPREXA) 5 mg PRN BID PRN PO ANXIETY / AGITATION Last administered on 09/02/17at 13:04; Start 08/29/17 at 22:00 Dicyclomine HCl (Bentyl) 10 mg BID PO Last administered on 09/02/17 20:00; Start 08/29/17 at 23:00 Fluticasone Propionate (Flonase) 2 spray DAILY NS Last administered on 09:02; Start 08/30/17 at 09:00 Albuterol/ Ipratropium (Duoneb) 3 ml PRN Q4HRS PRN NEB SHORTNESS OF BREATH; Start 08/29/17 at 22:00 Lamotrigine (LaMICtal) 150 mg BID PO Last administered on 09/02/17 19:58; Start 08/29/17 at 23:00 Losartan Potassium (Cozaar) 50 mg DAILY PO Last administered on 09/02/17 09:00 ; Start 08/30/17 at 09:00 Minoxidil (Loniten) 10 mg DAILY PO Last administered on 09/02/17 09:00; Start 08/30/17 at 09:00 Nicotine (Nicoderm Cq 14mg) 1 patch DAILY TD Last administered on 08/30/17 10: 28; Start 08/30/17 at 09:00 Oxcarbazepine (Trileptal) 600 mg BID PO Last administered on 09/02/17 20:00; Start 08/30/17 at 09:00 Pantoprazole Sodium (Protonix) 40 mg DAILY PO Last administered on 09/02/17 08 :59; Start 08/30/17 at 09:00 Trimethoprim/ Sulfamethoxazole (Bactrim Ds) 1 tab BID PO Last administered on 09:00; Start 08/29/17 at 23:00; Stop 08/31/17 at 16:19; Status DC Citalopram Hydrobromide (CeleXA) 20 mg DAILY PO Last administered on 09/01/17at 08:39; Start 08/30/17 at 09:00; Stop 09/01/17 at 18:32; Status DC Lactobacillus Rhamnosus (Culturelle) 1 cap BID PO Last administered on 19:59; Start 08/30/17 at 09:00 Amoxicillin (Amoxil) 500 mg [id number] PO Last administered on 09/02/17 19:59; Start 08/31/17 at 21:00 Ciprofloxacin (Cipro) 250 mg BID PO Last administered on 4/15/18at 20:03; Start 08/31/17 at 21:00 Lactobacillus Rhamnosus (Culturelle) 1 cap BID PO ; Start 08/31/17 at 21:00; Stop 08/31/17 at 21:00; Status DC Lorazepam (Ativan) 0.75 mg HS PO Last administered on 09/02/17at 21:08; Start at 21:00 Lorazepam (Ativan) 1 mg QHS PO Last administered on 08/31/17at 19:42; Start at 21:00; Stop 09/01/17 at 20:30; Status DC Fluvoxamine Maleate (Luvox) 25 mg QHS PO Last administered on 09/02/17at 19:59; Start 09/01/17 at 21:00 Active Scripts Active Reported Bactrim Ds Tablet (Sulfamethoxazole/Trimethoprim) 1 Each Tablet 1 Each PO BID Pantoprazole Sodium 40 Mg Tablet.dr 40 Mg PO DAILY Trileptal (Oxcarbazepine) 300 Mg Tablet 600 Mg PO BID Zyprexa (Olanzapine) 5 Mg Tablet 5 Mg PO PRN BID PRN NICODERM CQ 14mg (Nicotine) 1 Each Patch.td24 1 Patch TD DAILY Minoxidil 2.5 Mg Tablet 10 Mg PO DAILY Cozaar (Losartan Potassium) 50 Mg Tablet 50 Mg PO DAILY Lorazepam 1 Mg Tablet 1 Mg PO HS Lorazepam 0.5 Mg Tablet 0.75 Mg PO BID94 Lamictal (Lamotrigine) 150 Mg Tablet 150 Mg PO BID Probiotic (Lactobacillus Acidophilus) 1 Each Capsule 1 Each PO TIDWMEALS Duoneb 0.5-3(2.5) Mg/3 Ml (Albuterol/Ipratropium) 3 Ml Ampul.neb 3 Ml NEB PRN Q4HRS PRN Fluticasone Propionate Nasal [place] (Fluticasone Propionate) 16 Gm [place].susp 2 [place] NS DAILY Escitalopram Oxalate 10 Mg Tablet 10 Mg PO DAILY Donepezil Hcl 5 Mg Tablet 5 Mg PO HS Dicyclomine Hcl 10 Mg Capsule 10 Mg PO BID I have reviewed the current psychotropics carefully including drug interactions. Risk benefit ratio favors no change other than as noted in my dictated progress note. 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
--- NOTE | 2017-09-02 23:41 | PN ---
DATE: 08/31/2017 This late entry 08/31/2017 covers elements not covered in my initial note 08/31/2017. I met with the patient evening of 08/31/2017. The patient refused some of her medications previous evening, dropped herself out of the bed the previous evening, grabbing people, abusive, aggressive, disruptive. REVIEW OF SYSTEMS: Ambulation impaired, in beach chair. No CV, , pulmonary, eye system symptoms on review. MENTAL STATUS EXAM: Oriented to herself and at times to situation. Speech moderate latency, often responses monosyllabic. Abstraction fair, computation impaired, language function intact, attention span short. Mood and affect remain somewhat withdrawn. LABORATORY DATA: Reviewed. IMPRESSION: Major depressive disorder; major neurocognitive disorder, early Alzheimer, vascular with depression, urinary tract infection. PLAN: The patient is on Cipro and Amoxil for UTI. She is on Ativan 0.75 mg b.i.d. and 1 mg at bedtime. We will drop the bedtime dosage down to 0.75 mg in an attempt to taper the Ativan. Maintain Lexapro, Aricept along with Zyprexa p.r.n. MAN Laovn FERRELL MD DR: ETHAN/hernesto JOB#: [id number] / [id number]
[2017-09-03 06:09] VITALS: BP 145/73
[2017-09-03 07:05] LABS: BASO % 1 % (0-3); EOS # 0.1 x10^3/uL (0.0-0.7); EOS % 3 % (0-3); HEMATOCRIT 32.7 % (36.0-47.0); HEMOGLOBIN 11.2 g/dL (12.0-15.5); LYMPH # 1.2 x10^3/uL (1.0-4.8); LYMPH % 32 % (24-48); MEAN CORPUSCULAR HEMOGLOBIN 33 pg (25-35); MEAN CORPUSCULAR HGB CONC 34 g/dL (31-37); MEAN CORPUSCULAR VOLUME 96 fL (79-100); MONO # 0.6 x10^3/uL (0.0-1.1); MONO % 16 % (0-9); NEUT # 1.9 x10^3uL (1.8-7.7); NEUT % 48 % (31-73); PLATELET COUNT 251 x10^3/uL (140-400); RED CELL DISTRIBUTION WIDTH 17.5 % (11.5-14.5); WHITE BLOOD COUNT 3.9 x10^3/uL (4.0-11.0)
[2017-09-03 07:12] LABS: ALBUMIN 3.2 g/dL (3.4-5.0); ALBUMIN/GLOBULIN RATIO 1.1 (1.0-1.7); CALCIUM 8.9 mg/dL (8.5-10.1); CREATININE 0.7 mg/dL (0.6-1.0); GFR 82.5; POTASSIUM 4.6 mmol/L (3.5-5.1); TOTAL BILIRUBIN 0.2 mg/dL (0.2-1.0); TOTAL PROTEIN 6.1 g/dL (6.4-8.2)
[2017-09-03] MEDS: NICOTINE 14MG PATCH. TD SCH (09:00)
[2017-09-03] MEDS: LOSARTAN 50 MG TABLET. PO SCH ×2 (09:00→09:21)
[2017-09-03] MEDS: MINOXIDIL 2.5 MG TABLET PO SCH ×2 (09:00→09:21)
[2017-09-03] MEDS: PANTOPRAZOLE 40 MG TABLET. PO SCH (09:21)
[2017-09-03] MEDS: CIPROFLOXACIN HCL 250 MG TABLET PO SCH ×2 (09:21→20:00)
[2017-09-03] MEDS: LACTOBACILLUS RHAMNOSUS GG 1 CAPSULE. PO SCH ×2 (09:21→20:00)
[2017-09-03] MEDS: lamoTRIgine 150 MG TABLET. PO SCH ×2 (09:21→20:00)
[2017-09-03] MEDS: AMOXICILLIN 250 MG CAPSULE PO SCH ×3 (09:22→19:57)
[2017-09-03] MEDS: FLUTICASONE 50MCG/NASAL SPRAY 16GM BOTTLE. NS SCH (09:22)
[2017-09-03] MEDS: DICYCLOMINE HCL 10 MG CAPSULE PO SCH ×2 (09:22→20:00)
[2017-09-03] MEDS: LORazepam 0.5 MG TABLET PO SCH ×3 (09:26→19:59)
[2017-09-03] MEDS: ACETAMINOPHEN 325 MG TABLET PO PRN (12:36)
[2017-09-03] MEDS: OLANZapine 5 MG TABLET PO PRN (13:32)
[2017-09-03 15:49] VITALS: BP 140/81
--- NOTE | 2017-09-03 19:09 | PN ---
DATE: 09/01/2017 This is a late entry for 09/01/2017 covers elements not covered in my initial note of 09/01/2017. SUBJECTIVE: I met with the patient evening of 09/01/2017. Previous night, the patient was observed wanting to go to the bathroom repeatedly, anxious, restless, slept 7 hours. She is obsessed with the bowel during the day, Zyprexa helped somewhat. Family appeared confused regarding her Ativan dosage, felt she was on 0.75 mg twice a day and nothing else where as in fact the patient was additionally on 1 mg at bedtime and we are attempting to taper this. REVIEW OF SYSTEMS: Ambulation impaired, in wheelchair. No CV, , pulmonary, eye system symptoms on review. MENTAL STATUS EXAM: Oriented to herself and situation. Speech moderate latency, often responses monosyllabic. Abstraction fair, computation impaired, language function intact. Mood and affect is depressed. LABORATORY DATA: Reviewed. IMPRESSION: Major depressive disorder with psychotic features; major neurocognitive disorder, Alzheimer, vascular with delusion, depression. PLAN: Continue current psychotropics. Change Lexapro to Luvox 25 mg p.o. at bedtime. Continue rest unchanged. HODA FERRELL MD DR: ETHAN/hernesto JOB#: [id number] / [id number]
[2017-09-03] MEDS: DONEPEZIL HCL 5 MG TABLET. PO SCH (19:57)
--- NOTE | 2017-09-03 21:07 | PDOC ---
Exam Note: Alvin Note: Please also refer to the separate dictated note~for this date of service dictated separately.~Patient seen individually. Discussed the patient with Nursing staff reviewed the chart.~Reviewed interim history and current functioning. Reviewed vital signs,~Labs/ Radiology~and current medications noted below. Continue current treatment with the changes noted in the dictated addendum note Assessment: Vital Signs: Vital Signs Date Time Temp Pulse Resp B/P (MAP) Pulse Ox O2 Delivery O2 Flow Rate FiO2 09/03/17 15:49 98.1 94 20 140/81 (100) 98 09/01/17 16:26 Room Air I&O Intake and Output 09/03/17 07:00 Intake Total 960 ml Output Total 1000 ml Balance -40 ml Intake Oral 960 ml Output Urine Total 1000 ml Labs: Laboratory Tests Test 09/03/17 06:39 White Blood Count 3.9 x10^3/uL (4.0-11.0) L Red Blood Count 3.40 x10^6/uL (3.50-5.40) L Hemoglobin 11.2 g/dL (12.0-15.5) L Hematocrit 32.7 % (36.0-47.0) L Mean Corpuscular Volume 96 fL (79-100) Mean Corpuscular Hemoglobin 33 pg (25-35) Mean Corpuscular Hemoglobin Concent 34 g/dL (31-37) Red Cell Distribution Width 17.5 % (11.5-14.5) H Platelet Count 251 x10^3/uL (140-400) Neutrophils (%) (Auto) 48 % (31-73) Lymphocytes (%) (Auto) 32 % (24-48) Monocytes (%) (Auto) 16 % (0-9) H Eosinophils (%) (Auto) 3 % (0-3) Basophils (%) (Auto) 1 % (0-3) Neutrophils # (Auto) 1.9 x10^3uL (1.8-7.7) Lymphocytes # (Auto) 1.2 x10^3/uL (1.0-4.8) Monocytes # (Auto) 0.6 x10^3/uL (0.0-1.1) Eosinophils # (Auto) 0.1 x10^3/uL (0.0-0.7) Basophils # (Auto) 0.0 x10^3/uL (0.0-0.2) Sodium Level 137 mmol/L (136-145) Potassium Level 4.6 mmol/L (3.5-5.1) Chloride Level 103 mmol/L (98-107) Carbon Dioxide Level 27 mmol/L (21-32) Anion Gap 7 (6-14) Blood Urea Nitrogen 23 mg/dL (7-20) H Creatinine 0.7 mg/dL (0.6-1.0) Estimated GFR (Cockcroft-Gault) 82.5 BUN/Creatinine Ratio 33 (6-20) H Glucose Level 87 mg/dL (70-99) Calcium Level 8.9 mg/dL (8.5-10.1) Total Bilirubin 0.2 mg/dL (0.2-1.0) Aspartate Amino Transferase (AST) 12 U/L (15-37) L Alanine Aminotransferase (ALT) 17 U/L (14-59) Alkaline Phosphatase 75 U/L (46-116) Total Protein 6.1 g/dL (6.4-8.2) L Albumin 3.2 g/dL (3.4-5.0) L Albumin/Globulin Ratio 1.1 (1.0-1.7) Current Medications: Meds: Current Medications Acetaminophen (Tylenol) 650 mg PRN Q6HRS PRN PO PAIN / TEMP Last administered on 09/03/17at 12:36; Start 08/29/17 at 19:30 Multi-Ingredient Ointment (Analgesic [place]) 1 tia PRN QID PRN TP MUSCLE PAIN; Start 08/29/17 at 19:30 Al Hydroxide/Mg Hydroxide (Mylanta Plus Xs) 15 ml PRN AFTMEALHC PRN PO DYSPEPSIA; Start 08/29/17 at 19:30 Magnesium Hydroxide (Milk Of Magnesia) 2,400 mg PRN QHS PRN PO CONSTIPATION; Start 08/29/17 at 19:30 Donepezil HCl (Aricept) 5 mg HS PO Last administered on 09/03/17at 19:57; Start 08/29/17 at 23:00 Lorazepam (Ativan) 0.75 mg [id number] PO Last administered on 09/03/17at 16:42; Start 08/30/17 at 09:00 Lorazepam (Ativan) 1 mg HS PO Last administered on 08/30/17 20:04; Start 08/29 at 23:00; Stop 08/31/17 at 18:25; Status DC Olanzapine (ZyPREXA) 5 mg PRN BID PRN PO ANXIETY / AGITATION Last administered on 09/03/17 13:32; Start 08/29/17 at 22:00; Stop 09/03/17 at 18:40; Status DC Dicyclomine HCl (Bentyl) 10 mg BID PO Last administered on 09/03/17at 20:00; Start 08/29/17 at 23:00 Fluticasone Propionate (Flonase) 2 spray DAILY NS Last administered on 09:22; Start 08/30/17 at 09:00 Albuterol/ Ipratropium (Duoneb) 3 ml PRN Q4HRS PRN NEB SHORTNESS OF BREATH; Start 08/29/17 at 22:00 Lamotrigine (LaMICtal) 150 mg BID PO Last administered on 09/03/17at 20:00; Start 08/29/17 at 23:00 Losartan Potassium (Cozaar) 50 mg DAILY PO Last administered on 09/02/17 09:00 ; Start 08/30/17 at 09:00 Minoxidil (Loniten) 10 mg DAILY PO Last administered on 09/02/17at 09:00; Start 08/30/17 at 09:00 Nicotine (Nicoderm Cq 14mg) 1 patch DAILY TD Last administered on 08/30/17 10: 28; Start 08/30/17 at 09:00 Oxcarbazepine (Trileptal) 600 mg BID PO Last administered on 09/03/17at 20:01; Start 08/30/17 at 09:00 Pantoprazole Sodium (Protonix) 40 mg DAILY PO Last administered on 09/03/17 09 :21; Start 08/30/17 at 09:00 Trimethoprim/ Sulfamethoxazole (Bactrim Ds) 1 tab BID PO Last administered on 09:00; Start 08/29/17 at 23:00; Stop 08/31/17 at 16:19; Status DC Citalopram Hydrobromide (CeleXA) 20 mg DAILY PO Last administered on 09/01/17at 08:39; Start 08/30/17 at 09:00; Stop 09/01/17 at 18:32; Status DC Lactobacillus Rhamnosus (Culturelle) 1 cap BID PO Last administered on at 20:00; Start 08/30/17 at 09:00 Amoxicillin (Amoxil) 500 mg [id number] PO Last administered on 09/03/17at 19:57; Start 08/31/17 at 21:00 Ciprofloxacin (Cipro) 250 mg BID PO Last administered on 09/03/17at 20:00; Start 08/31/17 at 21:00 Lactobacillus Rhamnosus (Culturelle) 1 cap BID PO ; Start 08/31/17 at 21:00; Stop 08/31/17 at 21:00; Status DC Lorazepam (Ativan) 0.75 mg HS PO Last administered on 09/03/17at 19:59; Start at 21:00 Lorazepam (Ativan) 1 mg QHS PO Last administered on 08/31/17at 19:42; Start at 21:00; Stop 09/01/17 at 20:30; Status DC Fluvoxamine Maleate (Luvox) 25 mg QHS PO Last administered on 09/03/17at 20:01; Start 09/01/17 at 21:00; Stop 09/03/17 at 23:00 Fluvoxamine Maleate (Luvox) 50 mg HS PO ; Start 09/04/17 at 21:00 Olanzapine (ZyPREXA ZYDIS) 2.5 mg PRN Q2HR PRN PO PSYCHOSIS; Start 09/03/17 at 18:45 Active Scripts Active Reported Bactrim Ds Tablet (Sulfamethoxazole/Trimethoprim) 1 Each Tablet 1 Each PO BID Pantoprazole Sodium 40 Mg Tablet.dr 40 Mg PO DAILY Trileptal (Oxcarbazepine) 300 Mg Tablet 600 Mg PO BID Zyprexa (Olanzapine) 5 Mg Tablet 5 Mg PO PRN BID PRN NICODERM CQ 14mg (Nicotine) 1 Each Patch.td24 1 Patch TD DAILY Minoxidil 2.5 Mg Tablet 10 Mg PO DAILY Cozaar (Losartan Potassium) 50 Mg Tablet 50 Mg PO DAILY Lorazepam 1 Mg Tablet 1 Mg PO HS Lorazepam 0.5 Mg Tablet 0.75 Mg PO BID94 Lamictal (Lamotrigine) 150 Mg Tablet 150 Mg PO BID Probiotic (Lactobacillus Acidophilus) 1 Each Capsule 1 Each PO TIDWMEALS Duoneb 0.5-3(2.5) Mg/3 Ml (Albuterol/Ipratropium) 3 Ml Ampul.neb 3 Ml NEB PRN Q4HRS PRN Fluticasone Propionate Nasal [place] (Fluticasone Propionate) 16 Gm [place].susp 2 [place] NS DAILY Escitalopram Oxalate 10 Mg Tablet 10 Mg PO DAILY Donepezil Hcl 5 Mg Tablet 5 Mg PO HS Dicyclomine Hcl 10 Mg Capsule 10 Mg PO BID I have reviewed the current psychotropics carefully including drug interactions. Risk benefit ratio favors no change other than as noted in my dictated progress note. 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
--- NOTE | 2017-09-04 04:15 | PN ---
DATE: 09/02/2017 This late entry 09/02/2017 covers elements not covered in my initial note 09/02/2017. SUBJECTIVE: I met with the patient in the evening of 09/02/2017. Overall, per nursing report, the patient was quite combative after lunch, banging her head on the floor in the quiet room, anxious, obsessive, labile. REVIEW OF SYSTEMS: Ambulation impaired, in wheelchair. No CV, , pulmonary, eye, ENT system symptoms on review, not very verbal. MENTAL STATUS EXAM: Oriented to herself and situation. Speech moderate latency, often responses monosyllabic. Abstraction fair, computation impaired, language function intact. Mood and affect somewhat labile. LABORATORY DATA: Reviewed. IMPRESSION: Major depressive disorder with psychotic features, major neurocognitive disorder, Alzheimer, vascular with delusion, depression. PLAN: Continue psychotropics mentioned in my initial note, may need to increase Luvox. Consider adding Seroquel as a mood stabilizer. HODA FERRELL MD DR: ETHAN/hernesto JOB#: [id number] / [id number]
[2017-09-04 07:05] VITALS: BP 182/83
[2017-09-04] MEDS: NICOTINE 14MG PATCH. TD SCH (09:00)
[2017-09-04] MEDS: lamoTRIgine 150 MG TABLET. PO SCH ×2 (09:09→20:19)
[2017-09-04] MEDS: CIPROFLOXACIN HCL 250 MG TABLET PO SCH ×2 (09:09→20:18)
[2017-09-04] MEDS: LACTOBACILLUS RHAMNOSUS GG 1 CAPSULE. PO SCH ×2 (09:09→20:19)
[2017-09-04] MEDS: LOSARTAN 50 MG TABLET. PO SCH (09:09)
[2017-09-04] MEDS: DICYCLOMINE HCL 10 MG CAPSULE PO SCH ×2 (09:09→20:19)
[2017-09-04] MEDS: AMOXICILLIN 250 MG CAPSULE PO SCH ×3 (09:09→20:18)
[2017-09-04] MEDS: PANTOPRAZOLE 40 MG TABLET. PO SCH (09:10)
[2017-09-04] MEDS: LORazepam 0.5 MG TABLET PO SCH ×3 (09:12→20:21)
[2017-09-04] MEDS: MINOXIDIL 2.5 MG TABLET PO SCH (09:12)
[2017-09-04] MEDS: FLUTICASONE 50MCG/NASAL SPRAY 16GM BOTTLE. NS SCH (09:23)
[2017-09-04 15:42] VITALS: BP 148/85
[2017-09-04] MEDS: ACETAMINOPHEN 325 MG TABLET PO PRN (17:11)
[2017-09-04] MEDS: DONEPEZIL HCL 5 MG TABLET. PO SCH (20:19)
--- NOTE | 2017-09-04 20:55 | PDOC ---
Exam Note: Alvin Note: Please also refer to the separate dictated note~for this date of service dictated separately.~Patient seen individually. Discussed the patient with Nursing staff reviewed the chart.~Reviewed interim history and current functioning. Reviewed vital signs,~Labs/ Radiology~and current medications noted below. Continue current treatment with the changes noted in the dictated addendum note Assessment: Vital Signs: Vital Signs Date Time Temp Pulse Resp B/P (MAP) Pulse Ox O2 Delivery O2 Flow Rate FiO2 09/04/17 15:42 97.7 110 20 148/85 (106) 96 09/01/17 16:26 Room Air I&O Intake and Output 09/04/17 07:00 Intake Total 480 ml Output Total 600 ml Balance -120 ml Intake Oral 480 ml Output Urine Total 600 ml # Bowel Movements 1 Current Medications: Meds: Current Medications Acetaminophen (Tylenol) 650 mg PRN Q6HRS PRN PO PAIN / TEMP Last administered on 09/04/17at 17:11; Start 08/29/17 at 19:30 Multi-Ingredient Ointment (Analgesic [place]) 1 tia PRN QID PRN TP MUSCLE PAIN; Start 08/29/17 at 19:30 Al Hydroxide/Mg Hydroxide (Mylanta Plus Xs) 15 ml PRN AFTMEALHC PRN PO DYSPEPSIA; Start 08/29/17 at 19:30 Magnesium Hydroxide (Milk Of Magnesia) 2,400 mg PRN QHS PRN PO CONSTIPATION; Start 08/29/17 at 19:30 Donepezil HCl (Aricept) 5 mg HS PO Last administered on 09/04/17at 20:19; Start 08/29/17 at 23:00 Lorazepam (Ativan) 0.75 mg [id number] PO Last administered on 09/04/17at 16:07; Start 08/30/17 at 09:00; Stop 09/04/17 at 18:34; Status DC Lorazepam (Ativan) 1 mg HS PO Last administered on 08/30/17at 20:04; Start 08/29 at 23:00; Stop 08/31/17 at 18:25; Status DC Olanzapine (ZyPREXA) 5 mg PRN BID PRN PO ANXIETY / AGITATION Last administered on 09/03/17at 13:32; Start 08/29/17 at 22:00; Stop 09/03/17 at 18:40; Status DC Dicyclomine HCl (Bentyl) 10 mg BID PO Last administered on 09/04/17 20:19; Start 08/29/17 at 23:00 Fluticasone Propionate (Flonase) 2 spray DAILY NS Last administered on at 09:23; Start 08/30/17 at 09:00 Albuterol/ Ipratropium (Duoneb) 3 ml PRN Q4HRS PRN NEB SHORTNESS OF BREATH; Start 08/29/17 at 22:00 Lamotrigine (LaMICtal) 150 mg BID PO Last administered on 09/04/17 20:19; Start 08/29/17 at 23:00 Losartan Potassium (Cozaar) 50 mg DAILY PO Last administered on 09/04/17at 09:09 ; Start 08/30/17 at 09:00 Minoxidil (Loniten) 10 mg DAILY PO Last administered on 09/04/17at 09:12; Start 08/30/17 at 09:00 Nicotine (Nicoderm Cq 14mg) 1 patch DAILY TD Last administered on 08/30/17at 10: 28; Start 08/30/17 at 09:00 Oxcarbazepine (Trileptal) 600 mg BID PO Last administered on 09/04/17 20:19; Start 08/30/17 at 09:00 Pantoprazole Sodium (Protonix) 40 mg DAILY PO Last administered on 09/04/17at 09 :10; Start 08/30/17 at 09:00 Trimethoprim/ Sulfamethoxazole (Bactrim Ds) 1 tab BID PO Last administered on at 09:00; Start 08/29/17 at 23:00; Stop 08/31/17 at 16:19; Status DC Citalopram Hydrobromide (CeleXA) 20 mg DAILY PO Last administered on 09/01/17at 08:39; Start 08/30/17 at 09:00; Stop 09/01/17 at 18:32; Status DC Lactobacillus Rhamnosus (Culturelle) 1 cap BID PO Last administered on 20:19; Start 08/30/17 at 09:00 Amoxicillin (Amoxil) 500 mg [id number] PO Last administered on 09/04/17at 20:18; Start 08/31/17 at 21:00; Stop 09/06/17 at 09:00 Ciprofloxacin (Cipro) 250 mg BID PO Last administered on 09/04/17at 20:18; Start 08/31/17 at 21:00; Stop 09/06/17 at 09:00 Lactobacillus Rhamnosus (Culturelle) 1 cap BID PO ; Start 08/31/17 at 21:00; Stop 08/31/17 at 21:00; Status DC Lorazepam (Ativan) 0.75 mg HS PO Last administered on 09/04/17at 20:21; Start at 21:00 Lorazepam (Ativan) 1 mg QHS PO Last administered on 08/31/17at 19:42; Start at 21:00; Stop 09/01/17 at 20:30; Status DC Fluvoxamine Maleate (Luvox) 25 mg QHS PO Last administered on 09/03/17at 20:01; Start 09/01/17 at 21:00; Stop 09/03/17 at 23:00; Status DC Fluvoxamine Maleate (Luvox) 50 mg HS PO Last administered on 09/04/17at 20:21; Start 09/04/17 at 21:00 Olanzapine (ZyPREXA ZYDIS) 2.5 mg PRN Q2HR PRN PO PSYCHOSIS; Start 09/03/17 at 18:45 Lorazepam (Ativan) 0.5 mg DAILY PO ; Start 09/05/17 at 09:00 Lorazepam (Ativan) 0.75 mg 1600 PO ; Start 09/05/17 at 16:00 Active Scripts Active Reported Bactrim Ds Tablet (Sulfamethoxazole/Trimethoprim) 1 Each Tablet 1 Each PO BID Pantoprazole Sodium 40 Mg Tablet.dr 40 Mg PO DAILY Trileptal (Oxcarbazepine) 300 Mg Tablet 600 Mg PO BID Zyprexa (Olanzapine) 5 Mg Tablet 5 Mg PO PRN BID PRN NICODERM CQ 14mg (Nicotine) 1 Each Patch.td24 1 Patch TD DAILY Minoxidil 2.5 Mg Tablet 10 Mg PO DAILY Cozaar (Losartan Potassium) 50 Mg Tablet 50 Mg PO DAILY Lorazepam 1 Mg Tablet 1 Mg PO HS Lorazepam 0.5 Mg Tablet 0.75 Mg PO BID94 Lamictal (Lamotrigine) 150 Mg Tablet 150 Mg PO BID Probiotic (Lactobacillus Acidophilus) 1 Each Capsule 1 Each PO TIDWMEALS Duoneb 0.5-3(2.5) Mg/3 Ml (Albuterol/Ipratropium) 3 Ml Ampul.neb 3 Ml NEB PRN Q4HRS PRN Fluticasone Propionate Nasal [place] (Fluticasone Propionate) 16 Gm [place].susp 2 [place] NS DAILY Escitalopram Oxalate 10 Mg Tablet 10 Mg PO DAILY Donepezil Hcl 5 Mg Tablet 5 Mg PO HS Dicyclomine Hcl 10 Mg Capsule 10 Mg PO BID I have reviewed the current psychotropics carefully including drug interactions. Risk benefit ratio favors no change other than as noted in my dictated progress note. 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
--- NOTE | 2017-09-04 22:45 | PN ---
DATE: 09/03/2017 This late entry for 09/03/2017 covers elements not covered in my initial note of 09/03/2017. SUBJECTIVE: I met with the patient evening of 09/03/2017. Per nursing report, there is no change from the previous days, resistive to a.m. medications, complaining of headaches at lunchtime, anxious, labile, at times agitated, received Zyprexa in the evening, did not have to be syringed. REVIEW OF SYSTEMS: Ambulation impaired, in wheelchair. No CV, , pulmonary, eye system symptoms on review. Reliability varies. MENTAL STATUS EXAM: Oriented to herself. Insight, judgment, recent memory is impaired. Language function intact. Attention span short. Mood and affect somewhat dysphoric, anxious, at times labile. LABORATORY DATA: Reviewed. IMPRESSION: Major depressive disorder; anxiety disorder, unspecified; obsessive compulsive disorder, cognitive disorder, unspecified. PLAN: Increase Luvox to 50 mg at bedtime. We will continue to taper the Ativan. HODA FERRELL MD DR: ETHAN/hernesto JOB#: [id number] / [id number]
[2017-09-05] MEDS: ACETAMINOPHEN 325 MG TABLET PO PRN ×2 (05:59→17:44)
[2017-09-05 06:12] VITALS: BP 138/72
[2017-09-05] MEDS: NICOTINE 14MG PATCH. TD SCH (09:00)
[2017-09-05] MEDS: AMOXICILLIN 250 MG CAPSULE PO SCH ×3 (09:14→19:37)
[2017-09-05] MEDS: LOSARTAN 50 MG TABLET. PO SCH ×2 (09:14→12:30)
[2017-09-05] MEDS: DICYCLOMINE HCL 10 MG CAPSULE PO SCH ×2 (09:14→19:37)
[2017-09-05] MEDS: CIPROFLOXACIN HCL 250 MG TABLET PO SCH ×2 (09:15→19:37)
[2017-09-05] MEDS: LACTOBACILLUS RHAMNOSUS GG 1 CAPSULE. PO SCH ×2 (09:15→19:37)
[2017-09-05] MEDS: PANTOPRAZOLE 40 MG TABLET. PO SCH ×2 (09:15→12:30)
[2017-09-05] MEDS: FLUTICASONE 50MCG/NASAL SPRAY 16GM BOTTLE. NS SCH ×2 (09:15→09:16)
[2017-09-05] MEDS: MINOXIDIL 2.5 MG TABLET PO SCH ×2 (09:16→12:30)
[2017-09-05] MEDS: lamoTRIgine 150 MG TABLET. PO SCH ×2 (09:16→19:36)
[2017-09-05] MEDS: LORazepam 0.5 MG TABLET PO SCH ×4 (09:18→19:41)
[2017-09-05 16:24] VITALS: BP 146/75
--- NOTE | 2017-09-05 18:33 | PN ---
DATE: 09/04/2017 This late entry 09/04/2016, covers elements not covered in my initial note 09/04/2017. Met with the patient evening of 09/04/2017. SUBJECTIVE: The patient slept 6-1/2 hours previous evening, was quite resistive to taking her medications previous evening, better on 09/04/2017, less disorganized, asked for her antibiotics for the UTI, somewhat obsessively plays with her catheter. REVIEW OF SYSTEMS: Ambulation impaired. No CV, , pulmonary, eye, ENT system symptoms on review. MENTAL STATUS EXAM: Oriented to herself and situation. Speech moderate latency, often responses monosyllabic. Abstraction fair, computation impaired, language function intact, attention span short. Mood and affect somewhat withdrawn. LABORATORY DATA: Reviewed. IMPRESSION: Major depressive disorder with psychotic features; major neurocognitive disorder, Alzheimer, vascular with delusion, depression; anxiety disorder, unspecified. PLAN: She is on Ativan 0.75 mg 3 times a day. We will reduce it by 0.25 mg a day and gradually continue to reduce it. Maintain Luvox 50 mg at bedtime, Aricept along with Zyprexa p.r.n. MAN Lavon FERRELL MD DR: ETHAN/hernesto JOB#: [id number] / [id number]
[2017-09-05] MEDS: DONEPEZIL HCL 5 MG TABLET. PO SCH (19:36)
--- NOTE | 2017-09-05 21:15 | PDOC ---
Exam Note: Alvin Note: Please also refer to the separate dictated note~for this date of service dictated separately.~Patient seen individually. Discussed the patient with Nursing staff reviewed the chart.~Reviewed interim history and current functioning. Reviewed vital signs,~Labs/ Radiology~and current medications noted below. Continue current treatment with the changes noted in the dictated addendum note Assessment: Vital Signs: Vital Signs Date Time Temp Pulse Resp B/P (MAP) Pulse Ox O2 Delivery O2 Flow Rate FiO2 09/05/17 16:24 98.4 90 16 146/75 (98) 95 09/01/17 16:26 Room Air I&O Intake and Output 09/05/17 07:00 Intake Total 1080 ml Output Total 250 ml Balance 830 ml Intake Oral 1080 ml Output Urine Total 250 ml # Bowel Movements 1 Current Medications: Meds: Current Medications Acetaminophen (Tylenol) 650 mg PRN Q6HRS PRN PO PAIN / TEMP Last administered on 09/05/17at 17:44; Start 08/29/17 at 19:30 Multi-Ingredient Ointment (Analgesic [place]) 1 tia PRN QID PRN TP MUSCLE PAIN; Start 08/29/17 at 19:30 Al Hydroxide/Mg Hydroxide (Mylanta Plus Xs) 15 ml PRN AFTMEALHC PRN PO DYSPEPSIA; Start 08/29/17 at 19:30 Magnesium Hydroxide (Milk Of Magnesia) 2,400 mg PRN QHS PRN PO CONSTIPATION; Start 08/29/17 at 19:30 Donepezil HCl (Aricept) 5 mg HS PO Last administered on 09/05/17at 19:36; Start 08/29/17 at 23:00 Lorazepam (Ativan) 0.75 mg [id number] PO Last administered on 09/04/17at 16:07; Start 08/30/17 at 09:00; Stop 09/04/17 at 18:34; Status DC Lorazepam (Ativan) 1 mg HS PO Last administered on 08/30/17at 20:04; Start 08/29 at 23:00; Stop 08/31/17 at 18:25; Status DC Olanzapine (ZyPREXA) 5 mg PRN BID PRN PO ANXIETY / AGITATION Last administered on 09/03/17at 13:32; Start 08/29/17 at 22:00; Stop 09/03/17 at 18:40; Status DC Dicyclomine HCl (Bentyl) 10 mg BID PO Last administered on 09/05/17 19:37; Start 08/29/17 at 23:00 Fluticasone Propionate (Flonase) 2 spray DAILY NS Last administered on at 09:23; Start 08/30/17 at 09:00 Albuterol/ Ipratropium (Duoneb) 3 ml PRN Q4HRS PRN NEB SHORTNESS OF BREATH; Start 08/29/17 at 22:00 Lamotrigine (LaMICtal) 150 mg BID PO Last administered on 09/05/17at 19:36; Start 08/29/17 at 23:00 Losartan Potassium (Cozaar) 50 mg DAILY PO Last administered on 09/04/17at 09:09 ; Start 08/30/17 at 09:00 Minoxidil (Loniten) 10 mg DAILY PO Last administered on 09/04/17at 09:12; Start 08/30/17 at 09:00 Nicotine (Nicoderm Cq 14mg) 1 patch DAILY TD Last administered on 08/30/17at 10: 28; Start 08/30/17 at 09:00 Oxcarbazepine (Trileptal) 600 mg BID PO Last administered on 09/05/17 19:37; Start 08/30/17 at 09:00 Pantoprazole Sodium (Protonix) 40 mg DAILY PO Last administered on 09/04/17at 09 :10; Start 08/30/17 at 09:00 Trimethoprim/ Sulfamethoxazole (Bactrim Ds) 1 tab BID PO Last administered on at 09:00; Start 08/29/17 at 23:00; Stop 08/31/17 at 16:19; Status DC Citalopram Hydrobromide (CeleXA) 20 mg DAILY PO Last administered on 09/01/17at 08:39; Start 08/30/17 at 09:00; Stop 09/01/17 at 18:32; Status DC Lactobacillus Rhamnosus (Culturelle) 1 cap BID PO Last administered on at 19:37; Start 08/30/17 at 09:00 Amoxicillin (Amoxil) 500 mg [id number] PO Last administered on 09/05/17 19:37; Start 08/31/17 at 21:00; Stop 09/06/17 at 09:00 Ciprofloxacin (Cipro) 250 mg BID PO Last administered on 09/05/17at 19:37; Start 08/31/17 at 21:00; Stop 09/06/17 at 09:00 Lactobacillus Rhamnosus (Culturelle) 1 cap BID PO ; Start 08/31/17 at 21:00; Stop 08/31/17 at 21:00; Status DC Lorazepam (Ativan) 0.75 mg HS PO Last administered on 09/05/17at 19:41; Start at 21:00 Lorazepam (Ativan) 1 mg QHS PO Last administered on 08/31/17at 19:42; Start at 21:00; Stop 09/01/17 at 20:30; Status DC Fluvoxamine Maleate (Luvox) 25 mg QHS PO Last administered on 09/03/17at 20:01; Start 09/01/17 at 21:00; Stop 09/03/17 at 23:00; Status DC Fluvoxamine Maleate (Luvox) 50 mg HS PO Last administered on 09/05/17at 19:36; Start 09/04/17 at 21:00 Olanzapine (ZyPREXA ZYDIS) 2.5 mg PRN Q2HR PRN PO PSYCHOSIS Last administered on 09/05/17at 11:31; Start 09/03/17 at 18:45 Lorazepam (Ativan) 0.5 mg DAILY PO ; Start 09/05/17 at 09:00 Lorazepam (Ativan) 0.75 mg 1600 PO Last administered on 09/05/17at 17:44; Start 09/05/17 at 16:00 Quetiapine Fumarate (SEROquel) 12.5 mg 0900,1300,1700 PO ; Start 09/06/17 at 09: 00 Active Scripts Active Reported Bactrim Ds Tablet (Sulfamethoxazole/Trimethoprim) 1 Each Tablet 1 Each PO BID Pantoprazole Sodium 40 Mg Tablet.dr 40 Mg PO DAILY Trileptal (Oxcarbazepine) 300 Mg Tablet 600 Mg PO BID Zyprexa (Olanzapine) 5 Mg Tablet 5 Mg PO PRN BID PRN NICODERM CQ 14mg (Nicotine) 1 Each Patch.td24 1 Patch TD DAILY Minoxidil 2.5 Mg Tablet 10 Mg PO DAILY Cozaar (Losartan Potassium) 50 Mg Tablet 50 Mg PO DAILY Lorazepam 1 Mg Tablet 1 Mg PO HS Lorazepam 0.5 Mg Tablet 0.75 Mg PO BID94 Lamictal (Lamotrigine) 150 Mg Tablet 150 Mg PO BID Probiotic (Lactobacillus Acidophilus) 1 Each Capsule 1 Each PO TIDWMEALS Duoneb 0.5-3(2.5) Mg/3 Ml (Albuterol/Ipratropium) 3 Ml Ampul.neb 3 Ml NEB PRN Q4HRS PRN Fluticasone Propionate Nasal [place] (Fluticasone Propionate) 16 Gm [place].susp 2 [place] NS DAILY Escitalopram Oxalate 10 Mg Tablet 10 Mg PO DAILY Donepezil Hcl 5 Mg Tablet 5 Mg PO HS Dicyclomine Hcl 10 Mg Capsule 10 Mg PO BID I have reviewed the current psychotropics carefully including drug interactions. Risk benefit ratio favors no change other than as noted in my dictated progress note. 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
[2017-09-06 05:48] VITALS: BP 167/68
[2017-09-06] MEDS: AMOXICILLIN 250 MG CAPSULE PO SCH (08:35)
[2017-09-06] MEDS: DICYCLOMINE HCL 10 MG CAPSULE PO SCH ×2 (08:35→20:01)
[2017-09-06] MEDS: LOSARTAN 50 MG TABLET. PO SCH (08:35)
[2017-09-06] MEDS: PANTOPRAZOLE 40 MG TABLET. PO SCH (08:35)
[2017-09-06] MEDS: CIPROFLOXACIN HCL 250 MG TABLET PO SCH (08:35)
[2017-09-06] MEDS: MINOXIDIL 2.5 MG TABLET PO SCH (08:35)
[2017-09-06] MEDS: lamoTRIgine 150 MG TABLET. PO SCH ×2 (08:36→20:27)
[2017-09-06] MEDS: LORazepam 0.5 MG TABLET PO SCH ×3 (08:36→20:07)
[2017-09-06] MEDS: LACTOBACILLUS RHAMNOSUS GG 1 CAPSULE. PO SCH ×2 (08:36→20:01)
[2017-09-06] MEDS: QUEtiapine 25 MG TABLET. PO SCH ×3 (08:37→16:22)
[2017-09-06] MEDS: FLUTICASONE 50MCG/NASAL SPRAY 16GM BOTTLE. NS SCH (09:00)
[2017-09-06] MEDS: NICOTINE 14MG PATCH. TD SCH (09:00)
[2017-09-06] MEDS: ACETAMINOPHEN 325 MG TABLET PO PRN ×2 (10:29→16:23)
[2017-09-06 16:16] VITALS: BP 138/75
[2017-09-06] MEDS: DONEPEZIL HCL 5 MG TABLET. PO SCH (20:02)
--- NOTE | 2017-09-06 21:00 | PDOC ---
Exam Note: Alvin Note: Please also refer to the separate dictated note~for this date of service dictated separately.~Patient seen individually. Discussed the patient with Nursing staff reviewed the chart.~Reviewed interim history and current functioning. Reviewed vital signs,~Labs/ Radiology~and current medications noted below. Continue current treatment with the changes noted in the dictated addendum note Assessment: Vital Signs: Vital Signs Date Time Temp Pulse Resp B/P (MAP) Pulse Ox O2 Delivery O2 Flow Rate FiO2 09/06/17 16:16 98.7 107 24 138/75 (96) Room Air 09/06/17 05:48 95 I&O Intake and Output 09/06/17 07:00 Intake Total 720 ml Output Total 825 ml Balance -105 ml Intake Oral 720 ml Output Urine Total 825 ml # Bowel Movements 1 Current Medications: Meds: Current Medications Acetaminophen (Tylenol) 650 mg PRN Q6HRS PRN PO PAIN / TEMP Last administered on 09/06/17at 16:23; Start 08/29/17 at 19:30 Multi-Ingredient Ointment (Analgesic [place]) 1 tia PRN QID PRN TP MUSCLE PAIN; Start 08/29/17 at 19:30 Al Hydroxide/Mg Hydroxide (Mylanta Plus Xs) 15 ml PRN AFTMEALHC PRN PO DYSPEPSIA; Start 08/29/17 at 19:30 Magnesium Hydroxide (Milk Of Magnesia) 2,400 mg PRN QHS PRN PO CONSTIPATION; Start 08/29/17 at 19:30 Donepezil HCl (Aricept) 5 mg HS PO Last administered on 09/06/17at 20:02; Start 08/29/17 at 23:00 Lorazepam (Ativan) 0.75 mg BID94 PO Last administered on 09/04/17at 16:07; Start 08/30/17 at 09:00; Stop 09/04/17 at 18:34; Status DC Lorazepam (Ativan) 1 mg HS PO Last administered on 08/30/17at 20:04; Start 08/29 at 23:00; Stop 08/31/17 at 18:25; Status DC Olanzapine (ZyPREXA) 5 mg PRN BID PRN PO ANXIETY / AGITATION Last administered on 09/03/17at 13:32; Start 08/29/17 at 22:00; Stop 09/03/17 at 18:40; Status DC Dicyclomine HCl (Bentyl) 10 mg BID PO Last administered on 09/06/17 20:01; Start 08/29/17 at 23:00 Fluticasone Propionate (Flonase) 2 spray DAILY NS Last administered on 09:23; Start 08/30/17 at 09:00 Albuterol/ Ipratropium (Duoneb) 3 ml PRN Q4HRS PRN NEB SHORTNESS OF BREATH; Start 08/29/17 at 22:00 Lamotrigine (LaMICtal) 150 mg BID PO Last administered on 09/06/17 20:27; Start 08/29/17 at 23:00 Losartan Potassium (Cozaar) 50 mg DAILY PO Last administered on 09/06/17 08:35 ; Start 08/30/17 at 09:00 Minoxidil (Loniten) 10 mg DAILY PO Last administered on 09/06/17 08:35; Start 08/30/17 at 09:00 Nicotine (Nicoderm Cq 14mg) 1 patch DAILY TD Last administered on 08/30/17 10: 28; Start 08/30/17 at 09:00 Oxcarbazepine (Trileptal) 600 mg BID PO Last administered on 09/06/17 20:01; Start 08/30/17 at 09:00 Pantoprazole Sodium (Protonix) 40 mg DAILY PO Last administered on 09/06/17 08 :35; Start 08/30/17 at 09:00 Trimethoprim/ Sulfamethoxazole (Bactrim Ds) 1 tab BID PO Last administered on at 09:00; Start 08/29/17 at 23:00; Stop 08/31/17 at 16:19; Status DC Citalopram Hydrobromide (CeleXA) 20 mg DAILY PO Last administered on 09/01/17at 08:39; Start 08/30/17 at 09:00; Stop 09/01/17 at 18:32; Status DC Lactobacillus Rhamnosus (Culturelle) 1 cap BID PO Last administered on 20:01; Start 08/30/17 at 09:00 Amoxicillin (Amoxil) 500 mg [id number] PO Last administered on 4/19/18at 08:35; Start 08/31/17 at 21:00; Stop 09/06/17 at 09:00; Status DC Ciprofloxacin (Cipro) 250 mg BID PO Last administered on 09/06/17 08:35; Start 08/31/17 at 21:00; Stop 09/06/17 at 09:00; Status DC Lactobacillus Rhamnosus (Culturelle) 1 cap BID PO ; Start 08/31/17 at 21:00; Stop 08/31/17 at 21:00; Status DC Lorazepam (Ativan) 0.75 mg HS PO Last administered on 09/06/17 20:07; Start at 21:00 Lorazepam (Ativan) 1 mg QHS PO Last administered on 08/31/17at 19:42; Start at 21:00; Stop 09/01/17 at 20:30; Status DC Fluvoxamine Maleate (Luvox) 25 mg QHS PO Last administered on 09/03/17 20:01; Start 09/01/17 at 21:00; Stop 09/03/17 at 23:00; Status DC Fluvoxamine Maleate (Luvox) 50 mg HS PO Last administered on 09/06/17at 20:01; Start 09/04/17 at 21:00 Olanzapine (ZyPREXA ZYDIS) 2.5 mg PRN Q2HR PRN PO PSYCHOSIS Last administered on 09/06/17 16:23; Start 09/03/17 at 18:45 Lorazepam (Ativan) 0.5 mg DAILY PO Last administered on 09/06/17at 08:36; Start 09/05/17 at 09:00 Lorazepam (Ativan) 0.75 mg 1600 PO Last administered on 09/06/17 16:23; Start 09/05/17 at 16:00 Quetiapine Fumarate (SEROquel) 12.5 mg 0900,1300,1700 PO Last administered on at 16:22; Start 09/06/17 at 09:00; Stop 09/06/17 at 18:23; Status DC Quetiapine Fumarate (SEROquel) 25 mg 0900,1300,1700 PO ; Start 09/07/17 at 09:00 Active Scripts Active Reported Bactrim Ds Tablet (Sulfamethoxazole/Trimethoprim) 1 Each Tablet 1 Each PO BID Pantoprazole Sodium 40 Mg Tablet.dr 40 Mg PO DAILY Trileptal (Oxcarbazepine) 300 Mg Tablet 600 Mg PO BID Zyprexa (Olanzapine) 5 Mg Tablet 5 Mg PO PRN BID PRN NICODERM CQ 14mg (Nicotine) 1 Each Patch.td24 1 Patch TD DAILY Minoxidil 2.5 Mg Tablet 10 Mg PO DAILY Cozaar (Losartan Potassium) 50 Mg Tablet 50 Mg PO DAILY Lorazepam 1 Mg Tablet 1 Mg PO HS Lorazepam 0.5 Mg Tablet 0.75 Mg PO BID94 Lamictal (Lamotrigine) 150 Mg Tablet 150 Mg PO BID Probiotic (Lactobacillus Acidophilus) 1 Each Capsule 1 Each PO TIDWMEALS Duoneb 0.5-3(2.5) Mg/3 Ml (Albuterol/Ipratropium) 3 Ml Ampul.neb 3 Ml NEB PRN Q4HRS PRN Fluticasone Propionate Nasal [place] (Fluticasone Propionate) 16 Gm [place].susp 2 [place] NS DAILY Escitalopram Oxalate 10 Mg Tablet 10 Mg PO DAILY Donepezil Hcl 5 Mg Tablet 5 Mg PO HS Dicyclomine Hcl 10 Mg Capsule 10 Mg PO BID I have reviewed the current psychotropics carefully including drug interactions. Risk benefit ratio favors no change other than as noted in my dictated progress note. 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
[2017-09-07 05:54] VITALS: BP 167/75
[2017-09-07] MEDS: ACETAMINOPHEN 325 MG TABLET PO PRN ×3 (06:12→21:00)
[2017-09-07] MEDS: DICYCLOMINE HCL 10 MG CAPSULE PO SCH ×2 (08:56→19:40)
[2017-09-07] MEDS: lamoTRIgine 150 MG TABLET. PO SCH ×2 (08:56→19:40)
[2017-09-07] MEDS: NICOTINE 14MG PATCH. TD SCH (08:56)
[2017-09-07] MEDS: LOSARTAN 50 MG TABLET. PO SCH (08:56)
[2017-09-07] MEDS: PANTOPRAZOLE 40 MG TABLET. PO SCH (08:56)
[2017-09-07] MEDS: LACTOBACILLUS RHAMNOSUS GG 1 CAPSULE. PO SCH ×2 (08:56→19:40)
[2017-09-07] MEDS: FLUTICASONE 50MCG/NASAL SPRAY 16GM BOTTLE. NS SCH (08:58)
[2017-09-07] MEDS: LORazepam 0.5 MG TABLET PO SCH ×3 (08:58→19:42)
[2017-09-07] MEDS: QUEtiapine 25 MG TABLET. PO SCH ×3 (08:58→16:52)
[2017-09-07] MEDS: MINOXIDIL 2.5 MG TABLET PO SCH (08:59)
[2017-09-07] MEDS: CHOLECALCIFEROL (VITAMIN D3) 50,000 UNIT CAPSULE PO SCH (09:15)
[2017-09-07 16:11] VITALS: BP 155/66
--- NOTE | 2017-09-07 19:36 | PN ---
DATE: 09/05/2017 This is a late entry for 09/05/2017 and covers elements not covered in my initial note of 09/05/2017. SUBJECTIVE: I met with the patient evening of 09/05/2017. The patient is quite resistive to treatment per nursing report, sarcastic, refused her medications. They had to be syringed x 1. She threw herself out of the wheelchair, then put herself on the ground. No injuries were noted. Dr. Martines saw her in the evening, then she did better after that. REVIEW OF SYSTEMS: Ambulation impaired, in wheelchair. No CV, , pulmonary, eye system symptoms on review. MENTAL STATUS EXAM: Oriented to herself, situation at times. Speech coherent, a little pressured. Abstraction fair, computation impaired, language function intact. Memory is impaired. No active suicidal or homicidal ideation, but quite labile. LABORATORY DATA: Reviewed. IMPRESSION: Unchanged from initial note. PLAN: Start Seroquel 12.5 mg 3 times a day as a mood stabilizer. Continue rest unchanged per initial note. MAN Lavon FERRELL MD DR: ETHAN/hernesto JOB#: [id number] / [id number]
[2017-09-07] MEDS: DONEPEZIL HCL 5 MG TABLET. PO SCH (19:40)
--- NOTE | 2017-09-07 20:51 | PDOC ---
Exam Note: Alvin Note: Please also refer to the separate dictated note~for this date of service dictated separately.~Patient seen individually. Discussed the patient with Nursing staff reviewed the chart.~Reviewed interim history and current functioning. Reviewed vital signs,~Labs/ Radiology~and current medications noted below. Continue current treatment with the changes noted in the dictated addendum note Assessment: Vital Signs: Vital Signs Date Time Temp Pulse Resp B/P (MAP) Pulse Ox O2 Delivery O2 Flow Rate FiO2 09/07/17 16:11 98.5 95 20 155/66 (95) 95 Room Air I&O Intake and Output 09/07/17 07:00 Intake Total 600 ml Balance 600 ml Intake Oral 600 ml # Bowel Movements 1 Current Medications: Meds: Current Medications Acetaminophen (Tylenol) 650 mg PRN Q6HRS PRN PO PAIN / TEMP Last administered on 09/07/17at 15:44; Start 08/29/17 at 19:30 Multi-Ingredient Ointment (Analgesic [place]) 1 tia PRN QID PRN TP MUSCLE PAIN; Start 08/29/17 at 19:30 Al Hydroxide/Mg Hydroxide (Mylanta Plus Xs) 15 ml PRN AFTMEALHC PRN PO DYSPEPSIA; Start 08/29/17 at 19:30 Magnesium Hydroxide (Milk Of Magnesia) 2,400 mg PRN QHS PRN PO CONSTIPATION; Start 08/29/17 at 19:30 Donepezil HCl (Aricept) 5 mg HS PO Last administered on 09/07/17at 19:40; Start 08/29/17 at 23:00 Lorazepam (Ativan) 0.75 mg BID94 PO Last administered on 09/04/17at 16:07; Start 08/30/17 at 09:00; Stop 09/04/17 at 18:34; Status DC Lorazepam (Ativan) 1 mg HS PO Last administered on 08/30/17at 20:04; Start 08/29 at 23:00; Stop 08/31/17 at 18:25; Status DC Olanzapine (ZyPREXA) 5 mg PRN BID PRN PO ANXIETY / AGITATION Last administered on 09/03/17at 13:32; Start 08/29/17 at 22:00; Stop 09/03/17 at 18:40; Status DC Dicyclomine HCl (Bentyl) 10 mg BID PO Last administered on 09/07/17 19:40; Start 08/29/17 at 23:00 Fluticasone Propionate (Flonase) 2 spray DAILY NS Last administered on 08:58; Start 08/30/17 at 09:00 Albuterol/ Ipratropium (Duoneb) 3 ml PRN Q4HRS PRN NEB SHORTNESS OF BREATH; Start 08/29/17 at 22:00 Lamotrigine (LaMICtal) 150 mg BID PO Last administered on 09/07/17 19:40; Start 08/29/17 at 23:00 Losartan Potassium (Cozaar) 50 mg DAILY PO Last administered on 09/07/17 08:56 ; Start 08/30/17 at 09:00 Minoxidil (Loniten) 10 mg DAILY PO Last administered on 09/07/17 08:59; Start 08/30/17 at 09:00 Nicotine (Nicoderm Cq 14mg) 1 patch DAILY TD Last administered on 09/07/17 08: 56; Start 08/30/17 at 09:00 Oxcarbazepine (Trileptal) 600 mg BID PO Last administered on 09/07/17 19:40; Start 08/30/17 at 09:00 Pantoprazole Sodium (Protonix) 40 mg DAILY PO Last administered on 09/07/17 08 :56; Start 08/30/17 at 09:00 Trimethoprim/ Sulfamethoxazole (Bactrim Ds) 1 tab BID PO Last administered on 09:00; Start 08/29/17 at 23:00; Stop 08/31/17 at 16:19; Status DC Citalopram Hydrobromide (CeleXA) 20 mg DAILY PO Last administered on 09/01/17at 08:39; Start 08/30/17 at 09:00; Stop 09/01/17 at 18:32; Status DC Lactobacillus Rhamnosus (Culturelle) 1 cap BID PO Last administered on 19:40; Start 08/30/17 at 09:00 Amoxicillin (Amoxil) 500 mg [id number] PO Last administered on 09/06/17at 08:35; Start 08/31/17 at 21:00; Stop 09/06/17 at 09:00; Status DC Ciprofloxacin (Cipro) 250 mg BID PO Last administered on 09/06/17at 08:35; Start 08/31/17 at 21:00; Stop 09/06/17 at 09:00; Status DC Lactobacillus Rhamnosus (Culturelle) 1 cap BID PO ; Start 08/31/17 at 21:00; Stop 08/31/17 at 21:00; Status DC Lorazepam (Ativan) 0.75 mg HS PO Last administered on 09/07/17at 19:42; Start at 21:00 Lorazepam (Ativan) 1 mg QHS PO Last administered on 08/31/17at 19:42; Start at 21:00; Stop 09/01/17 at 20:30; Status DC Fluvoxamine Maleate (Luvox) 25 mg QHS PO Last administered on 09/03/17at 20:01; Start 09/01/17 at 21:00; Stop 09/03/17 at 23:00; Status DC Fluvoxamine Maleate (Luvox) 50 mg HS PO Last administered on 09/07/17at 19:40; Start 09/04/17 at 21:00 Olanzapine (ZyPREXA ZYDIS) 2.5 mg PRN Q2HR PRN PO PSYCHOSIS Last administered on 09/07/17at 12:08; Start 09/03/17 at 18:45 Lorazepam (Ativan) 0.5 mg DAILY PO Last administered on 09/07/17at 08:58; Start 09/05/17 at 09:00 Lorazepam (Ativan) 0.75 mg 1600 PO Last administered on 09/07/17at 15:44; Start 09/05/17 at 16:00 Quetiapine Fumarate (SEROquel) 12.5 mg 0900,1300,1700 PO Last administered on at 16:22; Start 09/06/17 at 09:00; Stop 09/06/17 at 18:23; Status DC Quetiapine Fumarate (SEROquel) 25 mg 0900,1300,1700 PO Last administered on at 16:52; Start 09/07/17 at 09:00; Stop 09/07/17 at 18:14; Status DC Vitamin D (Vitamin D3) 50,000 unit WEEKLY PO Last administered on 09/07/17at 09: 15; Start 09/07/17 at 09:00 Quetiapine Fumarate (SEROquel) 37.5 mg 0900,1300,1700 PO ; Start 09/08/17 at 09: 00 Active Scripts Active Reported Bactrim Ds Tablet (Sulfamethoxazole/Trimethoprim) 1 Each Tablet 1 Each PO BID Pantoprazole Sodium 40 Mg Tablet.dr 40 Mg PO DAILY Trileptal (Oxcarbazepine) 300 Mg Tablet 600 Mg PO BID Zyprexa (Olanzapine) 5 Mg Tablet 5 Mg PO PRN BID PRN NICODERM CQ 14mg (Nicotine) 1 Each Patch.td24 1 Patch TD DAILY Minoxidil 2.5 Mg Tablet 10 Mg PO DAILY Cozaar (Losartan Potassium) 50 Mg Tablet 50 Mg PO DAILY Lorazepam 1 Mg Tablet 1 Mg PO HS Lorazepam 0.5 Mg Tablet 0.75 Mg PO BID94 Lamictal (Lamotrigine) 150 Mg Tablet 150 Mg PO BID Probiotic (Lactobacillus Acidophilus) 1 Each Capsule 1 Each PO TIDWMEALS Duoneb 0.5-3(2.5) Mg/3 Ml (Albuterol/Ipratropium) 3 Ml Ampul.neb 3 Ml NEB PRN Q4HRS PRN Fluticasone Propionate Nasal [place] (Fluticasone Propionate) 16 Gm [place].susp 2 [place] NS DAILY Escitalopram Oxalate 10 Mg Tablet 10 Mg PO DAILY Donepezil Hcl 5 Mg Tablet 5 Mg PO HS Dicyclomine Hcl 10 Mg Capsule 10 Mg PO BID I have reviewed the current psychotropics carefully including drug interactions. Risk benefit ratio favors no change other than as noted in my dictated progress note. 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
--- NOTE | 2017-09-07 21:12 | PN ---
DATE: 09/06/2017 PSYCHIATRIC PROGRESS NOTE This late entry 09/06/2017 covers elements not covered in my initial note of 09/06/2017. SUBJECTIVE: Met with the patient in the evening and staffed with the entire treatment team in the morning along with her daughter, Kamilah, who is her DPOA attending from. Family is looking at her transitioning to live with one of the other daughters. We will also consult Dr. Martines for her seizure disorder, especially since we are gradually reducing her Ativan. She was resistive to a.m. medications. REVIEW OF SYSTEMS: Ambulation is impaired, in wheelchair. No CV, , pulmonary, eye, ENT system symptoms on review. She is quite resistive sarcastic in the morning, compliant with medications, later irritable, combative, arguing with staff, received Zyprexa for aggression after lunch, ripping off dressing from the catheter and throwing it at people, quite erratic. At 5:00 p.m., she was combative, put herself on the floor. We may need to place her on one-on-one status. MENTAL STATUS EXAM: Oriented to herself, situation. Speech is coherent, rapid at times. Abstraction is fair, computation impaired, language function intact. Mood and affect remains labile. LABORATORY DATA: Reviewed. IMPRESSION: Major depressive disorder with psychotic features; major neurocognitive disorder, Alzheimer, vascular with delusion, depression, bipolar 1 disorder, unspecified. PLAN: Increase Seroquel from 12.5 mg 3 times a day to 25 mg 3 times a day. Continue Rest unchanged. May need to increase Trileptal and she has been started on low dose Luvox. We will have Neurology consult, Dr. Martines for seizure disorder. MAN Lavon FERRELL MD DR: ETHAN/hernesto JOB#: [id number] / [id number]
[2017-09-08 05:53] VITALS: BP 125/52
[2017-09-08] MEDS: lamoTRIgine 150 MG TABLET. PO SCH ×2 (07:30→20:23)
[2017-09-08] MEDS: LACTOBACILLUS RHAMNOSUS GG 1 CAPSULE. PO SCH ×2 (07:30→20:23)
[2017-09-08] MEDS: LOSARTAN 50 MG TABLET. PO SCH (07:30)
[2017-09-08] MEDS: DICYCLOMINE HCL 10 MG CAPSULE PO SCH ×2 (07:30→20:23)
[2017-09-08] MEDS: PANTOPRAZOLE 40 MG TABLET. PO SCH (07:30)
[2017-09-08] MEDS: NICOTINE 14MG PATCH. TD SCH (07:31)
[2017-09-08] MEDS: FLUTICASONE 50MCG/NASAL SPRAY 16GM BOTTLE. NS SCH ×2 (07:35→09:00)
[2017-09-08] MEDS: LORazepam 0.5 MG TABLET PO SCH ×5 (07:35→21:00)
[2017-09-08] MEDS: MINOXIDIL 2.5 MG TABLET PO SCH (07:36)
[2017-09-08] MEDS: QUEtiapine 25 MG TABLET. PO SCH ×3 (07:36→18:06)
[2017-09-08 16:12] VITALS: BP 115/57
[2017-09-08] MEDS: DONEPEZIL HCL 5 MG TABLET. PO SCH (20:23)
--- NOTE | 2017-09-08 22:34 | PDOC ---
Exam Note: Alvin Note: Please also refer to the separate dictated note~for this date of service dictated separately.~Patient seen individually. Discussed the patient with Nursing staff reviewed the chart.~Reviewed interim history and current functioning. Reviewed vital signs,~Labs/ Radiology~and current medications noted below. Continue current treatment with the changes noted in the dictated addendum note Assessment: Vital Signs: Vital Signs Date Time Temp Pulse Resp B/P (MAP) Pulse Ox O2 Delivery O2 Flow Rate FiO2 09/08/17 16:12 98.1 109 20 115/57 (76) 97 Room Air I&O Intake and Output 09/08/17 07:00 Intake Total 480 ml Balance 480 ml Intake Oral 480 ml # Bowel Movements 1 Current Medications: Meds: Current Medications Acetaminophen (Tylenol) 650 mg PRN Q6HRS PRN PO PAIN / TEMP Last administered on 09/07/17at 21:00; Start 08/29/17 at 19:30 Multi-Ingredient Ointment (Analgesic [place]) 1 tia PRN QID PRN TP MUSCLE PAIN; Start 08/29/17 at 19:30 Al Hydroxide/Mg Hydroxide (Mylanta Plus Xs) 15 ml PRN AFTMEALHC PRN PO DYSPEPSIA; Start 08/29/17 at 19:30 Magnesium Hydroxide (Milk Of Magnesia) 2,400 mg PRN QHS PRN PO CONSTIPATION; Start 08/29/17 at 19:30 Donepezil HCl (Aricept) 5 mg HS PO Last administered on 09/08/17at 20:23; Start 08/29/17 at 23:00 Lorazepam (Ativan) 0.75 mg [id number] PO Last administered on 09/04/17at 16:07; Start 08/30/17 at 09:00; Stop 09/04/17 at 18:34; Status DC Lorazepam (Ativan) 1 mg HS PO Last administered on 08/30/17at 20:04; Start 08/29 at 23:00; Stop 08/31/17 at 18:25; Status DC Olanzapine (ZyPREXA) 5 mg PRN BID PRN PO ANXIETY / AGITATION Last administered on 09/03/17at 13:32; Start 08/29/17 at 22:00; Stop 09/03/17 at 18:40; Status DC Dicyclomine HCl (Bentyl) 10 mg BID PO Last administered on 09/08/17 20:23; Start 08/29/17 at 23:00 Fluticasone Propionate (Flonase) 2 spray DAILY NS Last administered on at 08:58; Start 08/30/17 at 09:00 Albuterol/ Ipratropium (Duoneb) 3 ml PRN Q4HRS PRN NEB SHORTNESS OF BREATH; Start 08/29/17 at 22:00 Lamotrigine (LaMICtal) 150 mg BID PO Last administered on 09/08/17 20:23; Start 08/29/17 at 23:00 Losartan Potassium (Cozaar) 50 mg DAILY PO Last administered on 09/08/17 07:30 ; Start 08/30/17 at 09:00 Minoxidil (Loniten) 10 mg DAILY PO Last administered on 09/08/17 07:36; Start 08/30/17 at 09:00 Nicotine (Nicoderm Cq 14mg) 1 patch DAILY TD Last administered on 09/08/17 07: 31; Start 08/30/17 at 09:00 Oxcarbazepine (Trileptal) 600 mg BID PO Last administered on 09/08/17 20:24; Start 08/30/17 at 09:00 Pantoprazole Sodium (Protonix) 40 mg DAILY PO Last administered on 09/08/17at 07 :30; Start 08/30/17 at 09:00 Trimethoprim/ Sulfamethoxazole (Bactrim Ds) 1 tab BID PO Last administered on 09:00; Start 08/29/17 at 23:00; Stop 08/31/17 at 16:19; Status DC Citalopram Hydrobromide (CeleXA) 20 mg DAILY PO Last administered on 09/01/17at 08:39; Start 08/30/17 at 09:00; Stop 09/01/17 at 18:32; Status DC Lactobacillus Rhamnosus (Culturelle) 1 cap BID PO Last administered on at 20:23; Start 08/30/17 at 09:00 Amoxicillin (Amoxil) 500 mg [id number] PO Last administered on 09/06/17at 08:35; Start 08/31/17 at 21:00; Stop 09/06/17 at 09:00; Status DC Ciprofloxacin (Cipro) 250 mg BID PO Last administered on 09/06/17at 08:35; Start 08/31/17 at 21:00; Stop 09/06/17 at 09:00; Status DC Lactobacillus Rhamnosus (Culturelle) 1 cap BID PO ; Start 08/31/17 at 21:00; Stop 08/31/17 at 21:00; Status DC Lorazepam (Ativan) 0.75 mg HS PO Last administered on 09/07/17at 19:42; Start at 21:00 Lorazepam (Ativan) 1 mg QHS PO Last administered on 08/31/17at 19:42; Start at 21:00; Stop 09/01/17 at 20:30; Status DC Fluvoxamine Maleate (Luvox) 25 mg QHS PO Last administered on 09/03/17at 20:01; Start 09/01/17 at 21:00; Stop 09/03/17 at 23:00; Status DC Fluvoxamine Maleate (Luvox) 50 mg HS PO Last administered on 09/08/17at 20:24; Start 09/04/17 at 21:00 Olanzapine (ZyPREXA ZYDIS) 2.5 mg PRN Q2HR PRN PO PSYCHOSIS Last administered on 09/07/17at 12:08; Start 09/03/17 at 18:45 Lorazepam (Ativan) 0.5 mg DAILY PO Last administered on 09/07/17at 08:58; Start 09/05/17 at 09:00 Lorazepam (Ativan) 0.75 mg 1600 PO Last administered on 09/08/17at 18:06; Start 09/05/17 at 16:00 Quetiapine Fumarate (SEROquel) 12.5 mg 0900,1300,1700 PO Last administered on at 16:22; Start 09/06/17 at 09:00; Stop 09/06/17 at 18:23; Status DC Quetiapine Fumarate (SEROquel) 25 mg 0900,1300,1700 PO Last administered on at 16:52; Start 09/07/17 at 09:00; Stop 09/07/17 at 18:14; Status DC Vitamin D (Vitamin D3) 50,000 unit WEEKLY PO Last administered on 09/07/17at 09: 15; Start 09/07/17 at 09:00 Quetiapine Fumarate (SEROquel) 37.5 mg 0900,1300,1700 PO Last administered on at 18:06; Start 09/08/17 at 09:00 Active Scripts Active Reported Bactrim Ds Tablet (Sulfamethoxazole/Trimethoprim) 1 Each Tablet 1 Each PO BID Pantoprazole Sodium 40 Mg Tablet.dr 40 Mg PO DAILY Trileptal (Oxcarbazepine) 300 Mg Tablet 600 Mg PO BID Zyprexa (Olanzapine) 5 Mg Tablet 5 Mg PO PRN BID PRN NICODERM CQ 14mg (Nicotine) 1 Each Patch.td24 1 Patch TD DAILY Minoxidil 2.5 Mg Tablet 10 Mg PO DAILY Cozaar (Losartan Potassium) 50 Mg Tablet 50 Mg PO DAILY Lorazepam 1 Mg Tablet 1 Mg PO HS Lorazepam 0.5 Mg Tablet 0.75 Mg PO BID94 Lamictal (Lamotrigine) 150 Mg Tablet 150 Mg PO BID Probiotic (Lactobacillus Acidophilus) 1 Each Capsule 1 Each PO TIDWMEALS Duoneb 0.5-3(2.5) Mg/3 Ml (Albuterol/Ipratropium) 3 Ml Ampul.neb 3 Ml NEB PRN Q4HRS PRN Fluticasone Propionate Nasal [place] (Fluticasone Propionate) 16 Gm [place].susp 2 [place] NS DAILY Escitalopram Oxalate 10 Mg Tablet 10 Mg PO DAILY Donepezil Hcl 5 Mg Tablet 5 Mg PO HS Dicyclomine Hcl 10 Mg Capsule 10 Mg PO BID I have reviewed the current psychotropics carefully including drug interactions. Risk benefit ratio favors no change other than as noted in my dictated progress note. 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
[2017-09-09 06:18] VITALS: BP 176/68
[2017-09-09 07:58] LABS: BASO % 1 % (0-3); EOS # 0.1 x10^3/uL (0.0-0.7); EOS % 2 % (0-3); HEMATOCRIT 34.6 % (36.0-47.0); HEMOGLOBIN 11.9 g/dL (12.0-15.5); LYMPH # 1.7 x10^3/uL (1.0-4.8); LYMPH % 25 % (24-48); MEAN CORPUSCULAR HEMOGLOBIN 33 pg (25-35); MEAN CORPUSCULAR HGB CONC 34 g/dL (31-37); MEAN CORPUSCULAR VOLUME 96 fL (79-100); MONO # 0.8 x10^3/uL (0.0-1.1); MONO % 11 % (0-9); NEUT # 4.2 x10^3uL (1.8-7.7); NEUT % 62 % (31-73); PLATELET COUNT 413 x10^3/uL (140-400); RED CELL DISTRIBUTION WIDTH 16.6 % (11.5-14.5); WHITE BLOOD COUNT 6.9 x10^3/uL (4.0-11.0)
[2017-09-09] MEDS: DICYCLOMINE HCL 10 MG CAPSULE PO SCH ×2 (08:13→21:53)
[2017-09-09] MEDS: LOSARTAN 50 MG TABLET. PO SCH (08:13)
[2017-09-09] MEDS: lamoTRIgine 150 MG TABLET. PO SCH ×2 (08:14→21:54)
[2017-09-09] MEDS: LACTOBACILLUS RHAMNOSUS GG 1 CAPSULE. PO SCH ×2 (08:14→21:54)
[2017-09-09] MEDS: QUEtiapine 25 MG TABLET. PO SCH ×3 (08:15→16:43)
[2017-09-09] MEDS: PANTOPRAZOLE 40 MG TABLET. PO SCH (08:15)
[2017-09-09 08:16] LABS: ALBUMIN 3.5 g/dL (3.4-5.0); ALBUMIN/GLOBULIN RATIO 0.9 (1.0-1.7); CREATININE 0.7 mg/dL (0.6-1.0); GFR 82.5; POTASSIUM 4.3 mmol/L (3.5-5.1); TOTAL BILIRUBIN 0.1 mg/dL (0.2-1.0); TOTAL PROTEIN 7.3 g/dL (6.4-8.2)
[2017-09-09] MEDS: MINOXIDIL 2.5 MG TABLET PO SCH (08:16)
[2017-09-09] MEDS: NICOTINE 14MG PATCH. TD SCH (08:16)
[2017-09-09] MEDS: LORazepam 0.5 MG TABLET PO SCH ×3 (08:21→21:00)
[2017-09-09] MEDS: ACETAMINOPHEN 325 MG TABLET PO PRN ×2 (08:21→18:37)
[2017-09-09] MEDS: FLUTICASONE 50MCG/NASAL SPRAY 16GM BOTTLE. NS SCH ×2 (08:21→08:58)
--- NOTE | 2017-09-09 10:15 | PN ---
DATE: 09/07/2017 This is a late entry date of service 09/07/2017 covers elements not covered in my initial note 09/07/2017. Met with the patient in the evening of 09/07/2017. The patient slept 6-3/4 hours previous evening quite resistive, aggressive, combative, arguing constantly. came for the 50th wedding anniversary and she was quite dismissive of him as well. She refuses to have the EEG recommended by Dr. Martines, noncompliant with medications, puts herself on the floor. REVIEW OF SYSTEMS: Ambulation impaired. No CV, , pulmonary, eye, ENT system symptoms on review, vague somatic symptoms. MENTAL STATUS EXAM: Oriented to herself and situation. Speech coherent. Has some latency. Abstraction fair, computation impaired, language function intact, attention span short. Mood and affect remains somewhat labile. LABORATORY DATA: Reviewed. IMPRESSION: Major depressive disorder with psychotic features, rule out bipolar 1 disorder, mixed Major neurocognitive disorder, Alzheimer, vascular with delusion, depression. PLAN: Continue Trileptal 600 mg twice a day, Lamictal 150 mg twice a day for seizure disorder. Increase Seroquel from 25 mg 3 times a day to 37.5 mg 3 times a day. Continue rest unchanged. MAN Lavon FERRELL MD DR: ETHAN/hernesto JOB#: [id number] / [id number]
[2017-09-09 15:42] VITALS: BP 168/83
--- NOTE | 2017-09-09 17:01 | RAD ---
AP chest x-ray History: Leukocytosis. Findings: Borderline cardiomegaly may be magnified by the AP portable technique. Thoracic aortic calcified plaque. No pneumothorax, pulmonary opacities or pleural effusions. There are diffuse coarsened interstitial markings. At the left lung base above the heart border there is a 1 cm nodular density projecting over the posterior eighth rib. Impression: 1. Diffuse coarsened interstitial markings could indicate chronic interstitial lung disease or an atypical infection. Pulmonary interstitial edema is a secondary consideration. 2. 1 cm nodular density at the left lung base, a pulmonary nodule is a possibility. This is to high relative to the breast to be a nipple shadow.
[2017-09-09] MEDS: ONDANSETRON ODT 4 MG TAB.RAPDIS PO PRN ×2 (19:25→19:37)
[2017-09-09 20:37] LABS: BACTERIA,URINE 0 /HPF (0-FEW); BILIRUBIN,URINE NEG (NEG); CLARITY,URINE HAZY; COLOR,URINE STRAW; GLUCOSE,URINE NEG (NEG); NITRITE,URINE POS (NEG); RBC,URINE RARE /HPF (0-2); SQUAMOUS EPITHELIAL CELL,UR FEW /LPF; UROBILINOGEN,URINE 0.2 mg/dL (0.2 mg/dL); WBC,URINE RARE /HPF (0-4)
[2017-09-09 20:39] LABS: AMORPHOUS SEDIMENT,UR PRESENT /HPF
--- NOTE | 2017-09-09 20:53 | PDOC ---
Exam Note: Alvin Note: Please also refer to the separate dictated note~for this date of service dictated separately.~Patient seen individually. Discussed the patient with Nursing staff reviewed the chart.~Reviewed interim history and current functioning. Reviewed vital signs,~Labs/ Radiology~and current medications noted below. Continue current treatment with the changes noted in the dictated addendum note Assessment: Vital Signs: Vital Signs Date Time Temp Pulse Resp B/P (MAP) Pulse Ox O2 Delivery O2 Flow Rate FiO2 09/09/17 15:42 97.6 92 20 168/83 (111) 98 09/09/17 06:18 Room Air I&O Intake and Output 09/09/17 07:00 Intake Total 605 ml Output Total 450 ml Balance 155 ml Intake Oral 605 ml Output Urine Total 450 ml # Bowel Movements 1 Labs: Laboratory Tests Test 09/09/17 07:37 White Blood Count 6.9 x10^3/uL (4.0-11.0) # Red Blood Count 3.60 x10^6/uL (3.50-5.40) Hemoglobin 11.9 g/dL (12.0-15.5) L Hematocrit 34.6 % (36.0-47.0) L Mean Corpuscular Volume 96 fL (79-100) Mean Corpuscular Hemoglobin 33 pg (25-35) Mean Corpuscular Hemoglobin Concent 34 g/dL (31-37) Red Cell Distribution Width 16.6 % (11.5-14.5) H Platelet Count 413 x10^3/uL (140-400) H Neutrophils (%) (Auto) 62 % (31-73) Lymphocytes (%) (Auto) 25 % (24-48) Monocytes (%) (Auto) 11 % (0-9) H Eosinophils (%) (Auto) 2 % (0-3) Basophils (%) (Auto) 1 % (0-3) Neutrophils # (Auto) 4.2 x10^3uL (1.8-7.7) Lymphocytes # (Auto) 1.7 x10^3/uL (1.0-4.8) Monocytes # (Auto) 0.8 x10^3/uL (0.0-1.1) Eosinophils # (Auto) 0.1 x10^3/uL (0.0-0.7) Basophils # (Auto) 0.0 x10^3/uL (0.0-0.2) Sodium Level 139 mmol/L (136-145) Potassium Level 4.3 mmol/L (3.5-5.1) Chloride Level 102 mmol/L (98-107) Carbon Dioxide Level 29 mmol/L (21-32) Anion Gap 8 (6-14) Blood Urea Nitrogen 15 mg/dL (7-20) Creatinine 0.7 mg/dL (0.6-1.0) Estimated GFR (Cockcroft-Gault) 82.5 BUN/Creatinine Ratio 21 (6-20) H Glucose Level 80 mg/dL (70-99) Calcium Level 9.0 mg/dL (8.5-10.1) Total Bilirubin 0.1 mg/dL (0.2-1.0) L Aspartate Amino Transferase (AST) 21 U/L (15-37) Alanine Aminotransferase (ALT) 25 U/L (14-59) Alkaline Phosphatase 106 U/L (46-116) Total Protein 7.3 g/dL (6.4-8.2) Albumin 3.5 g/dL (3.4-5.0) Albumin/Globulin Ratio 0.9 (1.0-1.7) L Current Medications: Meds: Current Medications Acetaminophen (Tylenol) 650 mg PRN Q6HRS PRN PO PAIN / TEMP Last administered on 09/09/17at 18:37; Start 08/29/17 at 19:30 Multi-Ingredient Ointment (Analgesic [place]) 1 tia PRN QID PRN TP MUSCLE PAIN; Start 08/29/17 at 19:30 Al Hydroxide/Mg Hydroxide (Mylanta Plus Xs) 15 ml PRN AFTMEALHC PRN PO DYSPEPSIA; Start 08/29/17 at 19:30 Magnesium Hydroxide (Milk Of Magnesia) 2,400 mg PRN QHS PRN PO CONSTIPATION; Start 08/29/17 at 19:30 Donepezil HCl (Aricept) 5 mg HS PO Last administered on 09/08/17at 20:23; Start 08/29/17 at 23:00 Lorazepam (Ativan) 0.75 mg [id number] PO Last administered on 09/04/17at 16:07; Start 08/30/17 at 09:00; Stop 09/04/17 at 18:34; Status DC Lorazepam (Ativan) 1 mg HS PO Last administered on 08/30/17at 20:04; Start 08/29 at 23:00; Stop 08/31/17 at 18:25; Status DC Olanzapine (ZyPREXA) 5 mg PRN BID PRN PO ANXIETY / AGITATION Last administered on 09/03/17at 13:32; Start 08/29/17 at 22:00; Stop 09/03/17 at 18:40; Status DC Dicyclomine HCl (Bentyl) 10 mg BID PO Last administered on 09/09/17at 08:13; Start 08/29/17 at 23:00 Fluticasone Propionate (Flonase) 2 spray DAILY NS Last administered on at 08:58; Start 08/30/17 at 09:00 Albuterol/ Ipratropium (Duoneb) 3 ml PRN Q4HRS PRN NEB SHORTNESS OF BREATH; Start 08/29/17 at 22:00 Lamotrigine (LaMICtal) 150 mg BID PO Last administered on 09/09/17at 08:14; Start 08/29/17 at 23:00 Losartan Potassium (Cozaar) 50 mg DAILY PO Last administered on 09/09/17at 08:13 ; Start 08/30/17 at 09:00 Minoxidil (Loniten) 10 mg DAILY PO Last administered on 09/09/17at 08:16; Start 08/30/17 at 09:00 Nicotine (Nicoderm Cq 14mg) 1 patch DAILY TD Last administered on 09/09/17at 08: 16; Start 08/30/17 at 09:00 Oxcarbazepine (Trileptal) 600 mg BID PO Last administered on 09/09/17at 08:16; Start 08/30/17 at 09:00 Pantoprazole Sodium (Protonix) 40 mg DAILY PO Last administered on 09/09/17at 08 :15; Start 08/30/17 at 09:00 Trimethoprim/ Sulfamethoxazole (Bactrim Ds) 1 tab BID PO Last administered on at 09:00; Start 08/29/17 at 23:00; Stop 08/31/17 at 16:19; Status DC Citalopram Hydrobromide (CeleXA) 20 mg DAILY PO Last administered on 09/01/17at 08:39; Start 08/30/17 at 09:00; Stop 09/01/17 at 18:32; Status DC Lactobacillus Rhamnosus (Culturelle) 1 cap BID PO Last administered on at 08:14; Start 08/30/17 at 09:00 Amoxicillin (Amoxil) 500 mg [id number] PO Last administered on 09/06/17at 08:35; Start 08/31/17 at 21:00; Stop 09/06/17 at 09:00; Status DC Ciprofloxacin (Cipro) 250 mg BID PO Last administered on 09/06/17 08:35; Start 08/31/17 at 21:00; Stop 09/06/17 at 09:00; Status DC Lactobacillus Rhamnosus (Culturelle) 1 cap BID PO ; Start 08/31/17 at 21:00; Stop 08/31/17 at 21:00; Status DC Lorazepam (Ativan) 0.75 mg HS PO Last administered on 09/07/17at 19:42; Start at 21:00 Lorazepam (Ativan) 1 mg QHS PO Last administered on 08/31/17at 19:42; Start at 21:00; Stop 09/01/17 at 20:30; Status DC Fluvoxamine Maleate (Luvox) 25 mg QHS PO Last administered on 09/03/17 20:01; Start 09/01/17 at 21:00; Stop 09/03/17 at 23:00; Status DC Fluvoxamine Maleate (Luvox) 50 mg HS PO Last administered on 09/08/17at 20:24; Start 09/04/17 at 21:00 Olanzapine (ZyPREXA ZYDIS) 2.5 mg PRN Q2HR PRN PO PSYCHOSIS Last administered on 09/07/17 12:08; Start 09/03/17 at 18:45 Lorazepam (Ativan) 0.5 mg DAILY PO Last administered on 09/09/17at 08:21; Start 09/05/17 at 09:00 Lorazepam (Ativan) 0.75 mg 1600 PO Last administered on 09/09/17at 16:44; Start 09/05/17 at 16:00 Quetiapine Fumarate (SEROquel) 12.5 mg 0900,1300,1700 PO Last administered on at 16:22; Start 09/06/17 at 09:00; Stop 09/06/17 at 18:23; Status DC Quetiapine Fumarate (SEROquel) 25 mg 0900,1300,1700 PO Last administered on at 16:52; Start 09/07/17 at 09:00; Stop 09/07/17 at 18:14; Status DC Vitamin D (Vitamin D3) 50,000 unit WEEKLY PO Last administered on 09/07/17at 09: 15; Start 09/07/17 at 09:00 Quetiapine Fumarate (SEROquel) 37.5 mg 0900,1300,1700 PO Last administered on at 16:43; Start 09/08/17 at 09:00 Ondansetron HCl (Zofran Odt) 4 mg PRN Q8HRS PRN PO NAUSEA/VOMITING Last administered on 09/09/17at 19:37; Start 09/09/17 at 15:15 Active Scripts Active Reported Bactrim Ds Tablet (Sulfamethoxazole/Trimethoprim) 1 Each Tablet 1 Each PO BID Pantoprazole Sodium 40 Mg Tablet.dr 40 Mg PO DAILY Trileptal (Oxcarbazepine) 300 Mg Tablet 600 Mg PO BID Zyprexa (Olanzapine) 5 Mg Tablet 5 Mg PO PRN BID PRN NICODERM CQ 14mg (Nicotine) 1 Each Patch.td24 1 Patch TD DAILY Minoxidil 2.5 Mg Tablet 10 Mg PO DAILY Cozaar (Losartan Potassium) 50 Mg Tablet 50 Mg PO DAILY Lorazepam 1 Mg Tablet 1 Mg PO HS Lorazepam 0.5 Mg Tablet 0.75 Mg PO BID94 Lamictal (Lamotrigine) 150 Mg Tablet 150 Mg PO BID Probiotic (Lactobacillus Acidophilus) 1 Each Capsule 1 Each PO TIDWMEALS Duoneb 0.5-3(2.5) Mg/3 Ml (Albuterol/Ipratropium) 3 Ml Ampul.neb 3 Ml NEB PRN Q4HRS PRN Fluticasone Propionate Nasal [place] (Fluticasone Propionate) 16 Gm [place].susp 2 [place] NS DAILY Escitalopram Oxalate 10 Mg Tablet 10 Mg PO DAILY Donepezil Hcl 5 Mg Tablet 5 Mg PO HS Dicyclomine Hcl 10 Mg Capsule 10 Mg PO BID I have reviewed the current psychotropics carefully including drug interactions. Risk benefit ratio favors no change other than as noted in my dictated progress note. 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
[2017-09-09] MEDS: DONEPEZIL HCL 5 MG TABLET. PO SCH (21:53)
[2017-09-10 06:33] VITALS: BP 174/78
--- NOTE | 2017-09-10 07:09 | RAD ---
KUB, 09/09/2017: History: Abdominal tenderness, nausea and vomiting The abdominal gas pattern is unremarkable. There is no evidence of organomegaly. Extensive aortoiliac and femoral arterial calcifications are present. Lower pelvic calcifications are compatible with phleboliths. IMPRESSION: No acute abdominal abnormality is detected.
[2017-09-10] MEDS: LOSARTAN 50 MG TABLET. PO SCH (08:57)
[2017-09-10] MEDS: lamoTRIgine 150 MG TABLET. PO SCH ×2 (08:57→19:25)
[2017-09-10] MEDS: LORazepam 0.5 MG TABLET PO SCH ×3 (08:57→19:27)
[2017-09-10] MEDS: QUEtiapine 25 MG TABLET. PO SCH ×3 (08:57→16:54)
[2017-09-10] MEDS: FLUTICASONE 50MCG/NASAL SPRAY 16GM BOTTLE. NS SCH (09:00)
[2017-09-10] MEDS: LACTOBACILLUS RHAMNOSUS GG 1 CAPSULE. PO SCH ×2 (09:00→19:25)
[2017-09-10] MEDS: DICYCLOMINE HCL 10 MG CAPSULE PO SCH ×2 (09:00→19:25)
[2017-09-10] MEDS: PANTOPRAZOLE 40 MG TABLET. PO SCH (09:00)
[2017-09-10] MEDS: NICOTINE 14MG PATCH. TD SCH (09:00)
[2017-09-10] MEDS: MINOXIDIL 2.5 MG TABLET PO SCH (09:03)
[2017-09-10] MEDS: ACETAMINOPHEN 325 MG TABLET PO PRN ×2 (09:44→15:37)
[2017-09-10 12:12] LABS: LAMOTRIGINE LEVEL 5.4 ug/mL (2.0-20.0)
--- NOTE | 2017-09-10 15:58 | PN ---
DATE: 09/09/2017 PSYCHIATRIC PROGRESS NOTE This is a late entry of 09/08/2017 covers elements not covered in my initial note of 09/08/2017. I met with the patient evening of 09/08/2017. The patient did well in the mornings, somewhat irritable and resistive in the afternoon. Refused afternoon medications ____ puts herself on the floor repeatedly. We will be checking labs in the morning. ____ putting self on the floor was after supper. REVIEW OF SYSTEMS: No CV, , pulmonary, eye system symptoms. Gait is unsteady ____. MENTAL STATUS EXAM: She is oriented to herself, situation. Speech moderate latency, often responses monosyllabic. Abstraction fair, computation impaired, language function intact. Attention span short. Mood and affect remain labile. LABORATORY DATA: Reviewed. IMPRESSION: Unchanged, ____ continue psychotropics mentioned in the admission notes. Check labs and adjust ____. Reduce the Ativan. Increase Seroquel ____. MAN Lavon FERRELL MD DR: ETHAN/hernesto JOB#: [id number] / [id number]
[2017-09-10 16:18] VITALS: BP 127/67
[2017-09-10] MEDS: DONEPEZIL HCL 5 MG TABLET. PO SCH (19:25)
--- NOTE | 2017-09-10 20:49 | PDOC ---
Exam Note: Alvin Note: Please also refer to the separate dictated note~for this date of service dictated separately.~Patient seen individually. Discussed the patient with Nursing staff reviewed the chart.~Reviewed interim history and current functioning. Reviewed vital signs,~Labs/ Radiology~and current medications noted below. Continue current treatment with the changes noted in the dictated addendum note Assessment: Vital Signs: Vital Signs Date Time Temp Pulse Resp B/P (MAP) Pulse Ox O2 Delivery O2 Flow Rate FiO2 09/10/17 16:18 97.9 80 16 127/67 (87) 97 09/10/17 06:33 Room Air I&O Intake and Output 09/10/17 07:00 Intake Total 960 ml Output Total 350 ml Balance 610 ml Intake Oral 960 ml Output Urine Total 350 ml Current Medications: Meds: Current Medications Acetaminophen (Tylenol) 650 mg PRN Q6HRS PRN PO PAIN / TEMP Last administered on 09/10/17at 15:37; Start 08/29/17 at 19:30 Multi-Ingredient Ointment (Analgesic [place]) 1 tia PRN QID PRN TP MUSCLE PAIN; Start 08/29/17 at 19:30 Al Hydroxide/Mg Hydroxide (Mylanta Plus Xs) 15 ml PRN AFTMEALHC PRN PO DYSPEPSIA; Start 08/29/17 at 19:30 Magnesium Hydroxide (Milk Of Magnesia) 2,400 mg PRN QHS PRN PO CONSTIPATION; Start 08/29/17 at 19:30 Donepezil HCl (Aricept) 5 mg HS PO Last administered on 09/10/17at 19:25; Start 08/29/17 at 23:00 Lorazepam (Ativan) 0.75 mg [id number] PO Last administered on 09/04/17at 16:07; Start 08/30/17 at 09:00; Stop 09/04/17 at 18:34; Status DC Lorazepam (Ativan) 1 mg HS PO Last administered on 08/30/17at 20:04; Start 08/29 at 23:00; Stop 08/31/17 at 18:25; Status DC Olanzapine (ZyPREXA) 5 mg PRN BID PRN PO ANXIETY / AGITATION Last administered on 09/03/17at 13:32; Start 08/29/17 at 22:00; Stop 09/03/17 at 18:40; Status DC Dicyclomine HCl (Bentyl) 10 mg BID PO Last administered on 09/10/17 19:25; Start 08/29/17 at 23:00 Fluticasone Propionate (Flonase) 2 spray DAILY NS Last administered on 08:58; Start 08/30/17 at 09:00 Albuterol/ Ipratropium (Duoneb) 3 ml PRN Q4HRS PRN NEB SHORTNESS OF BREATH; Start 08/29/17 at 22:00 Lamotrigine (LaMICtal) 150 mg BID PO Last administered on 09/10/17 19:25; Start 08/29/17 at 23:00 Losartan Potassium (Cozaar) 50 mg DAILY PO Last administered on 09/10/17 08:57 ; Start 08/30/17 at 09:00 Minoxidil (Loniten) 10 mg DAILY PO Last administered on 09/10/17 09:03; Start 08/30/17 at 09:00 Nicotine (Nicoderm Cq 14mg) 1 patch DAILY TD Last administered on 09/09/17 08: 16; Start 08/30/17 at 09:00 Oxcarbazepine (Trileptal) 600 mg BID PO Last administered on 09/10/17 19:25; Start 08/30/17 at 09:00 Pantoprazole Sodium (Protonix) 40 mg DAILY PO Last administered on 09/09/17 08 :15; Start 08/30/17 at 09:00 Trimethoprim/ Sulfamethoxazole (Bactrim Ds) 1 tab BID PO Last administered on at 09:00; Start 08/29/17 at 23:00; Stop 08/31/17 at 16:19; Status DC Citalopram Hydrobromide (CeleXA) 20 mg DAILY PO Last administered on 09/01/17 08:39; Start 08/30/17 at 09:00; Stop 09/01/17 at 18:32; Status DC Lactobacillus Rhamnosus (Culturelle) 1 cap BID PO Last administered on 19:25; Start 08/30/17 at 09:00 Amoxicillin (Amoxil) 500 mg [id number] PO Last administered on 09/06/17at 08:35; Start 08/31/17 at 21:00; Stop 09/06/17 at 09:00; Status DC Ciprofloxacin (Cipro) 250 mg BID PO Last administered on 09/06/17at 08:35; Start 08/31/17 at 21:00; Stop 09/06/17 at 09:00; Status DC Lactobacillus Rhamnosus (Culturelle) 1 cap BID PO ; Start 08/31/17 at 21:00; Stop 08/31/17 at 21:00; Status DC Lorazepam (Ativan) 0.75 mg HS PO Last administered on 09/10/17at 19:27; Start at 21:00 Lorazepam (Ativan) 1 mg QHS PO Last administered on 08/31/17at 19:42; Start at 21:00; Stop 09/01/17 at 20:30; Status DC Fluvoxamine Maleate (Luvox) 25 mg QHS PO Last administered on 09/03/17at 20:01; Start 09/01/17 at 21:00; Stop 09/03/17 at 23:00; Status DC Fluvoxamine Maleate (Luvox) 50 mg HS PO Last administered on 09/10/17 19:25; Start 09/04/17 at 21:00 Olanzapine (ZyPREXA ZYDIS) 2.5 mg PRN Q2HR PRN PO PSYCHOSIS Last administered on 09/07/17 12:08; Start 09/03/17 at 18:45 Lorazepam (Ativan) 0.5 mg DAILY PO Last administered on 09/10/17 08:57; Start 09/05/17 at 09:00 Lorazepam (Ativan) 0.75 mg 1600 PO Last administered on 09/10/17at 15:36; Start 09/05/17 at 16:00 Quetiapine Fumarate (SEROquel) 12.5 mg 0900,1300,1700 PO Last administered on at 16:22; Start 09/06/17 at 09:00; Stop 09/06/17 at 18:23; Status DC Quetiapine Fumarate (SEROquel) 25 mg 0900,1300,1700 PO Last administered on at 16:52; Start 09/07/17 at 09:00; Stop 09/07/17 at 18:14; Status DC Vitamin D (Vitamin D3) 50,000 unit WEEKLY PO Last administered on 09/07/17at 09: 15; Start 09/07/17 at 09:00 Quetiapine Fumarate (SEROquel) 37.5 mg 0900,1300,1700 PO Last administered on at 16:54; Start 09/08/17 at 09:00; Stop 09/10/17 at 18:12; Status DC Ondansetron HCl (Zofran Odt) 4 mg PRN Q8HRS PRN PO NAUSEA/VOMITING Last administered on 09/09/17at 19:37; Start 09/09/17 at 15:15 Quetiapine Fumarate (SEROquel) 50 mg 0900,1300,1700 PO ; Start 09/11/17 at 09:00 Active Scripts Active Reported Bactrim Ds Tablet (Sulfamethoxazole/Trimethoprim) 1 Each Tablet 1 Each PO BID Pantoprazole Sodium 40 Mg Tablet.dr 40 Mg PO DAILY Trileptal (Oxcarbazepine) 300 Mg Tablet 600 Mg PO BID Zyprexa (Olanzapine) 5 Mg Tablet 5 Mg PO PRN BID PRN NICODERM CQ 14mg (Nicotine) 1 Each Patch.td24 1 Patch TD DAILY Minoxidil 2.5 Mg Tablet 10 Mg PO DAILY Cozaar (Losartan Potassium) 50 Mg Tablet 50 Mg PO DAILY Lorazepam 1 Mg Tablet 1 Mg PO HS Lorazepam 0.5 Mg Tablet 0.75 Mg PO BID94 Lamictal (Lamotrigine) 150 Mg Tablet 150 Mg PO BID Probiotic (Lactobacillus Acidophilus) 1 Each Capsule 1 Each PO TIDWMEALS Duoneb 0.5-3(2.5) Mg/3 Ml (Albuterol/Ipratropium) 3 Ml Ampul.neb 3 Ml NEB PRN Q4HRS PRN Fluticasone Propionate Nasal [place] (Fluticasone Propionate) 16 Gm [place].susp 2 [place] NS DAILY Escitalopram Oxalate 10 Mg Tablet 10 Mg PO DAILY Donepezil Hcl 5 Mg Tablet 5 Mg PO HS Dicyclomine Hcl 10 Mg Capsule 10 Mg PO BID I have reviewed the current psychotropics carefully including drug interactions. Risk benefit ratio favors no change other than as noted in my dictated progress note. 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
--- NOTE | 2017-09-11 01:51 | PN ---
DATE: 09/08/2017 This is a late entry of 09/08/2017 covers elements not covered in my initial note of 09/08/2017. SUBJECTIVE: I met with the patient in the evening of 09/08/2017. This note is being re-dictated as requested by medical records. The patient did well in the morning, impulsive, resistive in the afternoon, refused afternoon medications, took them later hidden in juice, putting herself on the floor repeatedly after supper. We will check labs morning of 09/09/2017. REVIEW OF SYSTEMS: No CV, , pulmonary, eye system symptoms on review. Gait unsteady, in wheelchair. MENTAL STATUS EXAM: Oriented to herself and situation. Speech moderate latency, low in volume. Abstraction fair, computation impaired, language function intact. Mood and affect somewhat withdrawn, psychotic, labile at times. LABORATORY DATA: Reviewed. IMPRESSION: Unchanged from initial note. PLAN: Continue psychotropics and adjust further post-lab results. HODA FERRELL MD DR: ETHAN/hernesto JOB#: [id number] / [id number]
--- NOTE | 2017-09-11 02:39 | PN ---
DATE: 09/09/2017 PSYCHIATRIC PROGRESS NOTE This is a late entry of 09/09/2017 covers elements not covered in my initial note of 09/09/2017. SUBJECTIVE: I met with the patient in the afternoon. This note is being redictated as requested by medical records. The patient has had some possible emesis, but behaviorally little more withdrawn, less agitated, not putting herself on the floor, met with her in her room. REVIEW OF SYSTEMS: No CV, , pulmonary, eye system symptoms on review. Gait unsteady, in wheelchair. MENTAL STATUS EXAM: Oriented to herself and situation. Speech moderate latency, often responses monosyllabic. Abstraction fair, computation impaired, language function intact, attention span short. Mood and affect remain somewhat withdrawn at times. LABORATORY DATA: Reviewed. IMPRESSION: Unchanged from initial note. PLAN: Continue psychotropics mentioned in my initial note. MAN Lavon FERRELL MD DR: ETHAN/hernesto JOB#: [id number] / [id number]
[2017-09-11 06:31] VITALS: BP 127/91
[2017-09-11] MEDS: LOSARTAN 50 MG TABLET. PO SCH (08:22)
[2017-09-11] MEDS: lamoTRIgine 150 MG TABLET. PO SCH ×2 (08:22→19:37)
[2017-09-11] MEDS: MINOXIDIL 2.5 MG TABLET PO SCH (08:24)
[2017-09-11] MEDS: DICYCLOMINE HCL 10 MG CAPSULE PO SCH ×2 (08:24→19:39)
[2017-09-11] MEDS: LORazepam 0.5 MG TABLET PO SCH ×2 (08:25→17:18)
[2017-09-11] MEDS: ACETAMINOPHEN 325 MG TABLET PO PRN ×4 (08:26→19:40)
[2017-09-11] MEDS: FLUTICASONE 50MCG/NASAL SPRAY 16GM BOTTLE. NS SCH (08:36)
[2017-09-11] MEDS: PANTOPRAZOLE 40 MG TABLET. PO SCH (08:36)
[2017-09-11] MEDS: LACTOBACILLUS RHAMNOSUS GG 1 CAPSULE. PO SCH ×2 (08:36→19:38)
[2017-09-11] MEDS: NICOTINE 14MG PATCH. TD SCH (08:37)
[2017-09-11] MEDS: QUEtiapine 50 MG TABLET. PO SCH ×3 (08:37→17:18)
[2017-09-11] MEDS: HYOSCYAMINE 0.125 MG TAB.RAPDIS PO PRN (14:43)
[2017-09-11] MEDS: DONEPEZIL HCL 5 MG TABLET. PO SCH (19:38)
--- NOTE | 2017-09-11 20:47 | PDOC ---
Exam Note: Alvin Note: Please also refer to the separate dictated note~for this date of service dictated separately.~Patient seen individually. Discussed the patient with Nursing staff reviewed the chart.~Reviewed interim history and current functioning. Reviewed vital signs,~Labs/ Radiology~and current medications noted below. Continue current treatment with the changes noted in the dictated addendum note Assessment: Vital Signs: Vital Signs Date Time Temp Pulse Resp B/P (MAP) Pulse Ox O2 Delivery O2 Flow Rate FiO2 09/11/17 08:24 85 127/91 09/11/17 06:31 97.5 22 95 09/10/17 06:33 Room Air I&O Intake and Output 09/11/17 07:00 Intake Total 900 ml Output Total 1000 ml Balance -100 ml Intake Oral 900 ml Output Urine Total 1000 ml # Bowel Movements 1 Current Medications: Meds: Current Medications Acetaminophen (Tylenol) 650 mg PRN Q6HRS PRN PO PAIN / TEMP Last administered on 09/11/17at 08:26; Start 08/29/17 at 19:30; Stop 09/11/17 at 14:04; Status DC Multi-Ingredient Ointment (Analgesic [place]) 1 tia PRN QID PRN TP MUSCLE PAIN; Start 08/29/17 at 19:30 Al Hydroxide/Mg Hydroxide (Mylanta Plus Xs) 15 ml PRN AFTMEALHC PRN PO DYSPEPSIA; Start 08/29/17 at 19:30 Magnesium Hydroxide (Milk Of Magnesia) 2,400 mg PRN QHS PRN PO CONSTIPATION; Start 08/29/17 at 19:30 Donepezil HCl (Aricept) 5 mg HS PO Last administered on 09/11/17at 19:38; Start 08/29/17 at 23:00 Lorazepam (Ativan) 0.75 mg [id number] PO Last administered on 09/04/17at 16:07; Start 08/30/17 at 09:00; Stop 09/04/17 at 18:34; Status DC Lorazepam (Ativan) 1 mg HS PO Last administered on 08/30/17at 20:04; Start 08/29 at 23:00; Stop 08/31/17 at 18:25; Status DC Olanzapine (ZyPREXA) 5 mg PRN BID PRN PO ANXIETY / AGITATION Last administered on 09/03/17at 13:32; Start 08/29/17 at 22:00; Stop 09/03/17 at 18:40; Status DC Dicyclomine HCl (Bentyl) 10 mg BID PO Last administered on 09/11/17 19:39; Start 08/29/17 at 23:00 Fluticasone Propionate (Flonase) 2 spray DAILY NS Last administered on 08:58; Start 08/30/17 at 09:00 Albuterol/ Ipratropium (Duoneb) 3 ml PRN Q4HRS PRN NEB SHORTNESS OF BREATH; Start 08/29/17 at 22:00 Lamotrigine (LaMICtal) 150 mg BID PO Last administered on 09/11/17 19:37; Start 08/29/17 at 23:00 Losartan Potassium (Cozaar) 50 mg DAILY PO Last administered on 09/11/17 08:22 ; Start 08/30/17 at 09:00 Minoxidil (Loniten) 10 mg DAILY PO Last administered on 09/11/17 08:24; Start 08/30/17 at 09:00 Nicotine (Nicoderm Cq 14mg) 1 patch DAILY TD Last administered on 09/09/17 08: 16; Start 08/30/17 at 09:00 Oxcarbazepine (Trileptal) 600 mg BID PO Last administered on 09/11/17 19:38; Start 08/30/17 at 09:00 Pantoprazole Sodium (Protonix) 40 mg DAILY PO Last administered on 09/09/17 08 :15; Start 08/30/17 at 09:00 Trimethoprim/ Sulfamethoxazole (Bactrim Ds) 1 tab BID PO Last administered on 09:00; Start 08/29/17 at 23:00; Stop 08/31/17 at 16:19; Status DC Citalopram Hydrobromide (CeleXA) 20 mg DAILY PO Last administered on 09/01/17 08:39; Start 08/30/17 at 09:00; Stop 09/01/17 at 18:32; Status DC Lactobacillus Rhamnosus (Culturelle) 1 cap BID PO Last administered on 19:38; Start 08/30/17 at 09:00 Amoxicillin (Amoxil) 500 mg [id number] PO Last administered on 09/06/17 08:35; Start 08/31/17 at 21:00; Stop 09/06/17 at 09:00; Status DC Ciprofloxacin (Cipro) 250 mg BID PO Last administered on 09/06/17at 08:35; Start 08/31/17 at 21:00; Stop 09/06/17 at 09:00; Status DC Lactobacillus Rhamnosus (Culturelle) 1 cap BID PO ; Start 08/31/17 at 21:00; Stop 08/31/17 at 21:00; Status DC Lorazepam (Ativan) 0.75 mg HS PO Last administered on 09/10/17 19:27; Start at 21:00; Stop 09/11/17 at 19:26; Status DC Lorazepam (Ativan) 1 mg QHS PO Last administered on 08/31/17at 19:42; Start at 21:00; Stop 09/01/17 at 20:30; Status DC Fluvoxamine Maleate (Luvox) 25 mg QHS PO Last administered on 09/03/17at 20:01; Start 09/01/17 at 21:00; Stop 09/03/17 at 23:00; Status DC Fluvoxamine Maleate (Luvox) 50 mg HS PO Last administered on 09/11/17at 19:38; Start 09/04/17 at 21:00 Olanzapine (ZyPREXA ZYDIS) 2.5 mg PRN Q2HR PRN PO PSYCHOSIS Last administered on 09/11/17at 18:44; Start 09/03/17 at 18:45 Lorazepam (Ativan) 0.5 mg DAILY PO Last administered on 09/11/17at 08:25; Start 09/05/17 at 09:00 Lorazepam (Ativan) 0.75 mg 1600 PO Last administered on 09/11/17 17:18; Start 09/05/17 at 16:00 Quetiapine Fumarate (SEROquel) 12.5 mg 0900,1300,1700 PO Last administered on at 16:22; Start 09/06/17 at 09:00; Stop 09/06/17 at 18:23; Status DC Quetiapine Fumarate (SEROquel) 25 mg 0900,1300,1700 PO Last administered on at 16:52; Start 09/07/17 at 09:00; Stop 09/07/17 at 18:14; Status DC Vitamin D (Vitamin D3) 50,000 unit WEEKLY PO Last administered on 09/07/17at 09: 15; Start 09/07/17 at 09:00 Quetiapine Fumarate (SEROquel) 37.5 mg 0900,1300,1700 PO Last administered on at 16:54; Start 09/08/17 at 09:00; Stop 09/10/17 at 18:12; Status DC Ondansetron HCl (Zofran Odt) 4 mg PRN Q8HRS PRN PO NAUSEA/VOMITING Last administered on 09/09/17at 19:37; Start 09/09/17 at 15:15 Quetiapine Fumarate (SEROquel) 50 mg 0900,1300,1700 PO Last administered on at 17:18; Start 09/11/17 at 09:00 Acetaminophen (Tylenol) 650 mg PRN Q4HRS PRN PO PAIN / TEMP Last administered on 09/11/17at 19:40; Start 09/11/17 at 14:15 Hyoscyamine (Anaspaz) 0.125 mg PRN Q4HRS PRN PO STOMACH CRAMPING Last administered on 09/11/17at 14:43; Start 09/11/17 at 14:15 Lorazepam (Ativan) 0.5 mg HS PO ; Start 09/12/17 at 21:00 Active Scripts Active Reported Bactrim Ds Tablet (Sulfamethoxazole/Trimethoprim) 1 Each Tablet 1 Each PO BID Pantoprazole Sodium 40 Mg Tablet.dr 40 Mg PO DAILY Trileptal (Oxcarbazepine) 300 Mg Tablet 600 Mg PO BID Zyprexa (Olanzapine) 5 Mg Tablet 5 Mg PO PRN BID PRN NICODERM CQ 14mg (Nicotine) 1 Each Patch.td24 1 Patch TD DAILY Minoxidil 2.5 Mg Tablet 10 Mg PO DAILY Cozaar (Losartan Potassium) 50 Mg Tablet 50 Mg PO DAILY Lorazepam 1 Mg Tablet 1 Mg PO HS Lorazepam 0.5 Mg Tablet 0.75 Mg PO BID94 Lamictal (Lamotrigine) 150 Mg Tablet 150 Mg PO BID Probiotic (Lactobacillus Acidophilus) 1 Each Capsule 1 Each PO TIDWMEALS Duoneb 0.5-3(2.5) Mg/3 Ml (Albuterol/Ipratropium) 3 Ml Ampul.neb 3 Ml NEB PRN Q4HRS PRN Fluticasone Propionate Nasal [place] (Fluticasone Propionate) 16 Gm [place].susp 2 [place] NS DAILY Escitalopram Oxalate 10 Mg Tablet 10 Mg PO DAILY Donepezil Hcl 5 Mg Tablet 5 Mg PO HS Dicyclomine Hcl 10 Mg Capsule 10 Mg PO BID I have reviewed the current psychotropics carefully including drug interactions. Risk benefit ratio favors no change other than as noted in my dictated progress note. 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
--- NOTE | 2017-09-11 23:00 | PN ---
DATE: 09/10/2017 This is a late entry 09/10/2016, covers elements not covered in my initial note 09/10/2017. SUBJECTIVE: I met with the patient evening of 09/10/2017. The patient slept 7 hours previous evening. She has had a very difficult day. She ripped her suprapubic catheter out previous night and this was replaced. She has been hateful, argumentative per nursing report. UA culture and sensitivity is pending. Mood has been labile. Meds have to be hidden in her food and then also she is noncompliant. REVIEW OF SYSTEMS: Ambulation impaired, in wheelchair. No CV, , pulmonary, eye system symptoms on review. MENTAL STATUS EXAM: Oriented to herself and situation. Speech is coherent, rapid. Abstraction fair, computation impaired, language function intact, attention span short. Mood and affect remains labile. LABORATORY DATA: Reviewed. 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 PLAN: Increase Seroquel from 37.5 mg 3 times a day to 50 mg 3 times a day, continue, rest unchanged per initial note, may need to increase Luvox. HODA FERRELL MD DR: ETHAN/hernesto JOB#: [id number] / [id number]
[2017-09-12 06:34] VITALS: BP 162/74
[2017-09-12] MEDS: ACETAMINOPHEN 325 MG TABLET PO PRN ×3 (07:56→18:15)
[2017-09-12] MEDS: LACTOBACILLUS RHAMNOSUS GG 1 CAPSULE. PO SCH ×2 (08:45→19:22)
[2017-09-12] MEDS: LOSARTAN 50 MG TABLET. PO SCH (08:45)
[2017-09-12] MEDS: DICYCLOMINE HCL 10 MG CAPSULE PO SCH ×2 (08:46→19:22)
[2017-09-12] MEDS: lamoTRIgine 150 MG TABLET. PO SCH ×2 (08:46→19:22)
[2017-09-12] MEDS: QUEtiapine 50 MG TABLET. PO SCH ×3 (08:46→17:00)
[2017-09-12] MEDS: PANTOPRAZOLE 40 MG TABLET. PO SCH (08:46)
[2017-09-12] MEDS: MINOXIDIL 2.5 MG TABLET PO SCH (08:46)
[2017-09-12] MEDS: NICOTINE 14MG PATCH. TD SCH (08:47)
[2017-09-12] MEDS: HYOSCYAMINE 0.125 MG TAB.RAPDIS PO PRN ×2 (08:48→14:13)
[2017-09-12] MEDS: LORazepam 0.5 MG TABLET PO SCH ×2 (08:48→17:00)
[2017-09-12] MEDS: FLUTICASONE 50MCG/NASAL SPRAY 16GM BOTTLE. NS SCH (09:00)
[2017-09-12 11:26] VITALS: BP 157/76
[2017-09-12] MEDS: ONDANSETRON ODT 4 MG TAB.RAPDIS PO PRN (11:26)
[2017-09-12 15:47] VITALS: BP 135/61
[2017-09-12] MEDS: DONEPEZIL HCL 5 MG TABLET. PO SCH (19:22)
--- NOTE | 2017-09-12 20:26 | PDOC ---
Exam Note: Alvin Note: Please also refer to the separate dictated note~for this date of service dictated separately.~Patient seen individually. Discussed the patient with Nursing staff reviewed the chart.~Reviewed interim history and current functioning. Reviewed vital signs,~Labs/ Radiology~and current medications noted below. Continue current treatment with the changes noted in the dictated addendum note Assessment: Vital Signs: Vital Signs Date Time Temp Pulse Resp B/P (MAP) Pulse Ox O2 Delivery O2 Flow Rate FiO2 09/12/17 15:47 97.9 92 18 135/61 (85) 97 09/12/17 06:34 Room Air I&O Intake and Output 09/12/17 07:00 Intake Total 720 ml Output Total 2070 ml Balance -1350 ml Intake Oral 720 ml Output Urine Total 2070 ml # Bowel Movements 1 Current Medications: Meds: Current Medications Acetaminophen (Tylenol) 650 mg PRN Q6HRS PRN PO PAIN / TEMP Last administered on 09/11/17at 08:26; Start 08/29/17 at 19:30; Stop 09/11/17 at 14:04; Status DC Multi-Ingredient Ointment (Analgesic [place]) 1 tia PRN QID PRN TP MUSCLE PAIN; Start 08/29/17 at 19:30 Al Hydroxide/Mg Hydroxide (Mylanta Plus Xs) 15 ml PRN AFTMEALHC PRN PO DYSPEPSIA; Start 08/29/17 at 19:30 Magnesium Hydroxide (Milk Of Magnesia) 2,400 mg PRN QHS PRN PO CONSTIPATION; Start 08/29/17 at 19:30 Donepezil HCl (Aricept) 5 mg HS PO Last administered on 09/12/17at 19:22; Start 08/29/17 at 23:00 Lorazepam (Ativan) 0.75 mg BID94 PO Last administered on 09/04/17at 16:07; Start 08/30/17 at 09:00; Stop 09/04/17 at 18:34; Status DC Lorazepam (Ativan) 1 mg HS PO Last administered on 08/30/17at 20:04; Start 08/29 at 23:00; Stop 08/31/17 at 18:25; Status DC Olanzapine (ZyPREXA) 5 mg PRN BID PRN PO ANXIETY / AGITATION Last administered on 09/03/17at 13:32; Start 08/29/17 at 22:00; Stop 09/03/17 at 18:40; Status DC Dicyclomine HCl (Bentyl) 10 mg BID PO Last administered on 09/12/17 19:22; Start 08/29/17 at 23:00 Fluticasone Propionate (Flonase) 2 spray DAILY NS Last administered on at 08:58; Start 08/30/17 at 09:00 Albuterol/ Ipratropium (Duoneb) 3 ml PRN Q4HRS PRN NEB SHORTNESS OF BREATH; Start 08/29/17 at 22:00 Lamotrigine (LaMICtal) 150 mg BID PO Last administered on 09/12/17 19:22; Start 08/29/17 at 23:00 Losartan Potassium (Cozaar) 50 mg DAILY PO Last administered on 09/12/17 08:45 ; Start 08/30/17 at 09:00 Minoxidil (Loniten) 10 mg DAILY PO Last administered on 09/12/17 08:46; Start 08/30/17 at 09:00 Nicotine (Nicoderm Cq 14mg) 1 patch DAILY TD Last administered on 09/09/17 08: 16; Start 08/30/17 at 09:00; Stop 09/12/17 at 09:03; Status DC Oxcarbazepine (Trileptal) 600 mg BID PO Last administered on 09/12/17 19:22; Start 08/30/17 at 09:00 Pantoprazole Sodium (Protonix) 40 mg DAILY PO Last administered on 09/12/17 08 :46; Start 08/30/17 at 09:00 Trimethoprim/ Sulfamethoxazole (Bactrim Ds) 1 tab BID PO Last administered on 09:00; Start 08/29/17 at 23:00; Stop 08/31/17 at 16:19; Status DC Citalopram Hydrobromide (CeleXA) 20 mg DAILY PO Last administered on 09/01/17at 08:39; Start 08/30/17 at 09:00; Stop 09/01/17 at 18:32; Status DC Lactobacillus Rhamnosus (Culturelle) 1 cap BID PO Last administered on 19:22; Start 08/30/17 at 09:00 Amoxicillin (Amoxil) 500 mg [id number] PO Last administered on 09/06/17at 08:35; Start 08/31/17 at 21:00; Stop 09/06/17 at 09:00; Status DC Ciprofloxacin (Cipro) 250 mg BID PO Last administered on 09/06/17at 08:35; Start 08/31/17 at 21:00; Stop 09/06/17 at 09:00; Status DC Lactobacillus Rhamnosus (Culturelle) 1 cap BID PO ; Start 08/31/17 at 21:00; Stop 08/31/17 at 21:00; Status DC Lorazepam (Ativan) 0.75 mg HS PO Last administered on 09/10/17 19:27; Start at 21:00; Stop 09/11/17 at 19:26; Status DC Lorazepam (Ativan) 1 mg QHS PO Last administered on 08/31/17at 19:42; Start at 21:00; Stop 09/01/17 at 20:30; Status DC Fluvoxamine Maleate (Luvox) 25 mg QHS PO Last administered on 09/03/17at 20:01; Start 09/01/17 at 21:00; Stop 09/03/17 at 23:00; Status DC Fluvoxamine Maleate (Luvox) 50 mg HS PO Last administered on 09/12/17 19:22; Start 09/04/17 at 21:00 Olanzapine (ZyPREXA ZYDIS) 2.5 mg PRN Q2HR PRN PO PSYCHOSIS Last administered on 09/12/17 18:15; Start 09/03/17 at 18:45 Lorazepam (Ativan) 0.5 mg DAILY PO Last administered on 09/12/17 08:48; Start 09/05/17 at 09:00 Lorazepam (Ativan) 0.75 mg 1600 PO Last administered on 09/12/17 17:00; Start 09/05/17 at 16:00 Quetiapine Fumarate (SEROquel) 12.5 mg 0900,1300,1700 PO Last administered on at 16:22; Start 09/06/17 at 09:00; Stop 09/06/17 at 18:23; Status DC Quetiapine Fumarate (SEROquel) 25 mg 0900,1300,1700 PO Last administered on at 16:52; Start 09/07/17 at 09:00; Stop 09/07/17 at 18:14; Status DC Vitamin D (Vitamin D3) 50,000 unit WEEKLY PO Last administered on 09/07/17at 09: 15; Start 09/07/17 at 09:00 Quetiapine Fumarate (SEROquel) 37.5 mg 0900,1300,1700 PO Last administered on at 16:54; Start 09/08/17 at 09:00; Stop 09/10/17 at 18:12; Status DC Ondansetron HCl (Zofran Odt) 4 mg PRN Q8HRS PRN PO NAUSEA/VOMITING Last administered on 09/12/17 11:26; Start 09/09/17 at 15:15 Quetiapine Fumarate (SEROquel) 50 mg 0900,1300,1700 PO Last administered on at 17:00; Start 09/11/17 at 09:00 Acetaminophen (Tylenol) 650 mg PRN Q4HRS PRN PO PAIN / TEMP Last administered on 09/12/17 18:15; Start 09/11/17 at 14:15 Hyoscyamine (Anaspaz) 0.125 mg PRN Q4HRS PRN PO STOMACH CRAMPING Last administered on 09/12/17 14:13; Start 09/11/17 at 14:15 Lorazepam (Ativan) 0.5 mg HS PO Last administered on 09/12/17at 19:24; Start at 21:00 Nicotine (Nicoderm Cq 14mg) 1 patch PRN DAILY PRN TD smoking cessation; Start 09/13/17 at 09:00 Active Scripts Active Reported Bactrim Ds Tablet (Sulfamethoxazole/Trimethoprim) 1 Each Tablet 1 Each PO BID Pantoprazole Sodium 40 Mg Tablet.dr 40 Mg PO DAILY Trileptal (Oxcarbazepine) 300 Mg Tablet 600 Mg PO BID Zyprexa (Olanzapine) 5 Mg Tablet 5 Mg PO PRN BID PRN NICODERM CQ 14mg (Nicotine) 1 Each Patch.td24 1 Patch TD DAILY Minoxidil 2.5 Mg Tablet 10 Mg PO DAILY Cozaar (Losartan Potassium) 50 Mg Tablet 50 Mg PO DAILY Lorazepam 1 Mg Tablet 1 Mg PO HS Lorazepam 0.5 Mg Tablet 0.75 Mg PO BID94 Lamictal (Lamotrigine) 150 Mg Tablet 150 Mg PO BID Probiotic (Lactobacillus Acidophilus) 1 Each Capsule 1 Each PO TIDWMEALS Duoneb 0.5-3(2.5) Mg/3 Ml (Albuterol/Ipratropium) 3 Ml Ampul.neb 3 Ml NEB PRN Q4HRS PRN Fluticasone Propionate Nasal [place] (Fluticasone Propionate) 16 Gm [place].susp 2 [place] NS DAILY Escitalopram Oxalate 10 Mg Tablet 10 Mg PO DAILY Donepezil Hcl 5 Mg Tablet 5 Mg PO HS Dicyclomine Hcl 10 Mg Capsule 10 Mg PO BID I have reviewed the current psychotropics carefully including drug interactions. Risk benefit ratio favors no change other than as noted in my dictated progress note. 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
[2017-09-12] MEDS ORDERED: LORazepam 0.5 MG TABLET PO SCH (21:00)
--- NOTE | 2017-09-12 22:12 | PN ---
DATE: 09/11/2017 This is a late entry, 09/11/2017, covers the elements not covered in my initial note, 09/11/2017. SUBJECTIVE: I met with the patient in the evening. The patient slept 6-1/2 hours. She is doing a little better, compliant with medications. Complains of pain in the suprapubic area. She previously pulled out the suprapubic catheter, which was replaced by nursing staff. Tylenol has been increased. REVIEW OF SYSTEMS: Ambulation impaired. No CV, , pulmonary, eye system symptoms on review. MENTAL STATUS EXAM: Oriented to herself and situation. Speech coherent, has some latency. Abstraction fair, computation impaired, language function intact. Mood and affect less labile on 09/11/2017. LABORATORY DATA: Reviewed. IMPRESSION: Major depressive disorder with psychotic features; major neurocognitive disorder, Alzheimer, vascular with delusion, depression. PLAN: Ativan is 0.5 mg before noon, 0.75 mg two times a day, and we will reduce it to 0.5 mg twice a day, 0.75 mg once a day. Continue rest unchanged. MAN Lavon FERRELL MD DR: ETHAN/hernesto JOB#: [id number] / [id number]
[2017-09-13 06:15] VITALS: BP 175/84
[2017-09-13] MEDS: LOSARTAN 50 MG TABLET. PO SCH (07:47)
[2017-09-13] MEDS: QUEtiapine 50 MG TABLET. PO SCH ×4 (07:47→16:34)
[2017-09-13] MEDS: lamoTRIgine 150 MG TABLET. PO SCH ×2 (07:48→19:51)
[2017-09-13] MEDS: LACTOBACILLUS RHAMNOSUS GG 1 CAPSULE. PO SCH ×5 (07:48→21:00)
[2017-09-13] MEDS: DICYCLOMINE HCL 10 MG CAPSULE PO SCH ×2 (07:48→19:51)
[2017-09-13] MEDS: PANTOPRAZOLE 40 MG TABLET. PO SCH (07:48)
[2017-09-13] MEDS: LORazepam 0.5 MG TABLET PO SCH ×2 (07:50→16:34)
[2017-09-13] MEDS: ACETAMINOPHEN 325 MG TABLET PO PRN ×3 (07:50→21:06)
[2017-09-13] MEDS: FLUTICASONE 50MCG/NASAL SPRAY 16GM BOTTLE. NS SCH ×2 (07:51→08:11)
[2017-09-13] MEDS: MINOXIDIL 2.5 MG TABLET PO SCH (07:51)
[2017-09-13 16:21] VITALS: BP 130/60
[2017-09-13] MEDS: DONEPEZIL HCL 5 MG TABLET. PO SCH (19:51)
--- NOTE | 2017-09-13 21:10 | PDOC ---
Exam Note: Alvin Note: Please also refer to the separate dictated note~for this date of service dictated separately.~Patient seen individually. Discussed the patient with Nursing staff reviewed the chart.~Reviewed interim history and current functioning. Reviewed vital signs,~Labs/ Radiology~and current medications noted below. Continue current treatment with the changes noted in the dictated addendum note Assessment: Vital Signs: Vital Signs Date Time Temp Pulse Resp B/P (MAP) Pulse Ox O2 Delivery O2 Flow Rate FiO2 09/13/17 16:21 97.8 80 20 130/60 (83) 95 09/12/17 06:34 Room Air I&O Intake and Output 09/13/17 07:00 Intake Total 1200 ml Output Total 1975 ml Balance -775 ml Intake Oral 1200 ml Output Urine Total 1975 ml # Bowel Movements 1 Current Medications: Meds: Current Medications Acetaminophen (Tylenol) 650 mg PRN Q6HRS PRN PO PAIN / TEMP Last administered on 09/11/17at 08:26; Start 08/29/17 at 19:30; Stop 09/11/17 at 14:04; Status DC Multi-Ingredient Ointment (Analgesic [place]) 1 tia PRN QID PRN TP MUSCLE PAIN; Start 08/29/17 at 19:30 Al Hydroxide/Mg Hydroxide (Mylanta Plus Xs) 15 ml PRN AFTMEALHC PRN PO DYSPEPSIA; Start 08/29/17 at 19:30 Magnesium Hydroxide (Milk Of Magnesia) 2,400 mg PRN QHS PRN PO CONSTIPATION; Start 08/29/17 at 19:30 Donepezil HCl (Aricept) 5 mg HS PO Last administered on 09/13/17at 19:51; Start 08/29/17 at 23:00 Lorazepam (Ativan) 0.75 mg BID94 PO Last administered on 09/04/17at 16:07; Start 08/30/17 at 09:00; Stop 09/04/17 at 18:34; Status DC Lorazepam (Ativan) 1 mg HS PO Last administered on 08/30/17at 20:04; Start 08/29 at 23:00; Stop 08/31/17 at 18:25; Status DC Olanzapine (ZyPREXA) 5 mg PRN BID PRN PO ANXIETY / AGITATION Last administered on 09/03/17at 13:32; Start 08/29/17 at 22:00; Stop 09/03/17 at 18:40; Status DC Dicyclomine HCl (Bentyl) 10 mg BID PO Last administered on 09/13/17 19:51; Start 08/29/17 at 23:00 Fluticasone Propionate (Flonase) 2 spray DAILY NS Last administered on at 08:58; Start 08/30/17 at 09:00 Albuterol/ Ipratropium (Duoneb) 3 ml PRN Q4HRS PRN NEB SHORTNESS OF BREATH; Start 08/29/17 at 22:00 Lamotrigine (LaMICtal) 150 mg BID PO Last administered on 09/13/17 19:51; Start 08/29/17 at 23:00 Losartan Potassium (Cozaar) 50 mg DAILY PO Last administered on 09/13/17at 07:47 ; Start 08/30/17 at 09:00 Minoxidil (Loniten) 10 mg DAILY PO Last administered on 09/13/17 07:51; Start 08/30/17 at 09:00 Nicotine (Nicoderm Cq 14mg) 1 patch DAILY TD Last administered on 09/09/17at 08: 16; Start 08/30/17 at 09:00; Stop 09/12/17 at 09:03; Status DC Oxcarbazepine (Trileptal) 600 mg BID PO Last administered on 09/13/17 07:48; Start 08/30/17 at 09:00; Stop 09/13/17 at 19:36; Status DC Pantoprazole Sodium (Protonix) 40 mg DAILY PO Last administered on 09/13/17at 07 :48; Start 08/30/17 at 09:00 Trimethoprim/ Sulfamethoxazole (Bactrim Ds) 1 tab BID PO Last administered on at 09:00; Start 08/29/17 at 23:00; Stop 08/31/17 at 16:19; Status DC Citalopram Hydrobromide (CeleXA) 20 mg DAILY PO Last administered on 09/01/17at 08:39; Start 08/30/17 at 09:00; Stop 09/01/17 at 18:32; Status DC Lactobacillus Rhamnosus (Culturelle) 1 cap BID PO Last administered on 19:22; Start 08/30/17 at 09:00 Amoxicillin (Amoxil) 500 mg [id number] PO Last administered on 09/06/17at 08:35; Start 08/31/17 at 21:00; Stop 09/06/17 at 09:00; Status DC Ciprofloxacin (Cipro) 250 mg BID PO Last administered on 09/06/17at 08:35; Start 08/31/17 at 21:00; Stop 09/06/17 at 09:00; Status DC Lactobacillus Rhamnosus (Culturelle) 1 cap BID PO ; Start 08/31/17 at 21:00; Stop 08/31/17 at 21:00; Status DC Lorazepam (Ativan) 0.75 mg HS PO Last administered on 09/10/17 19:27; Start at 21:00; Stop 09/11/17 at 19:26; Status DC Lorazepam (Ativan) 1 mg QHS PO Last administered on 08/31/17at 19:42; Start at 21:00; Stop 09/01/17 at 20:30; Status DC Fluvoxamine Maleate (Luvox) 25 mg QHS PO Last administered on 09/03/17at 20:01; Start 09/01/17 at 21:00; Stop 09/03/17 at 23:00; Status DC Fluvoxamine Maleate (Luvox) 50 mg HS PO Last administered on 09/13/17at 19:51; Start 09/04/17 at 21:00 Olanzapine (ZyPREXA ZYDIS) 2.5 mg PRN Q2HR PRN PO PSYCHOSIS Last administered on 09/13/17at 12:50; Start 09/03/17 at 18:45 Lorazepam (Ativan) 0.5 mg DAILY PO Last administered on 09/13/17at 07:50; Start 09/05/17 at 09:00; Stop 09/13/17 at 12:26; Status DC Lorazepam (Ativan) 0.75 mg 1600 PO Last administered on 09/12/17at 17:00; Start 09/05/17 at 16:00; Stop 09/13/17 at 12:26; Status DC Quetiapine Fumarate (SEROquel) 12.5 mg 0900,1300,1700 PO Last administered on 16:22; Start 09/06/17 at 09:00; Stop 09/06/17 at 18:23; Status DC Quetiapine Fumarate (SEROquel) 25 mg 0900,1300,1700 PO Last administered on 16:52; Start 09/07/17 at 09:00; Stop 09/07/17 at 18:14; Status DC Vitamin D (Vitamin D3) 50,000 unit WEEKLY PO Last administered on 09/07/17at 09: 15; Start 09/07/17 at 09:00 Quetiapine Fumarate (SEROquel) 37.5 mg 0900,1300,1700 PO Last administered on 16:54; Start 09/08/17 at 09:00; Stop 09/10/17 at 18:12; Status DC Ondansetron HCl (Zofran Odt) 4 mg PRN Q8HRS PRN PO NAUSEA/VOMITING Last administered on 09/12/17 11:26; Start 09/09/17 at 15:15 Quetiapine Fumarate (SEROquel) 50 mg 0900,1300,1700 PO Last administered on 16:34; Start 09/11/17 at 09:00 Acetaminophen (Tylenol) 650 mg PRN Q4HRS PRN PO PAIN / TEMP Last administered on 09/13/17 21:06; Start 09/11/17 at 14:15 Hyoscyamine (Anaspaz) 0.125 mg PRN Q4HRS PRN PO STOMACH CRAMPING Last administered on 09/12/17at 14:13; Start 09/11/17 at 14:15 Lorazepam (Ativan) 0.5 mg HS PO Last administered on 09/12/17 19:24; Start at 21:00; Stop 09/13/17 at 12:31; Status DC Nicotine (Nicoderm Cq 14mg) 1 patch PRN DAILY PRN TD smoking cessation; Start 09/13/17 at 09:00 Lorazepam (Ativan) 0.25 mg DAILY PO ; Start 09/15/17 at 09:00 Lorazepam (Ativan) 0.5 mg 1600 PO Last administered on 4/26/18at 16:34; Start 09/13/17 at 16:00 Lorazepam (Ativan) 0.25 mg HS PO ; Start 09/18/17 at 21:00 Oxcarbazepine (Trileptal) 600 mg DAILY PO ; Start 09/14/17 at 09:00 Oxcarbazepine (Trileptal) 450 mg QHS PO Last administered on 09/13/17at 19:51; Start 09/13/17 at 21:00 Active Scripts Active Reported Bactrim Ds Tablet (Sulfamethoxazole/Trimethoprim) 1 Each Tablet 1 Each PO BID Pantoprazole Sodium 40 Mg Tablet.dr 40 Mg PO DAILY Trileptal (Oxcarbazepine) 300 Mg Tablet 600 Mg PO BID Zyprexa (Olanzapine) 5 Mg Tablet 5 Mg PO PRN BID PRN NICODERM CQ 14mg (Nicotine) 1 Each Patch.td24 1 Patch TD DAILY Minoxidil 2.5 Mg Tablet 10 Mg PO DAILY Cozaar (Losartan Potassium) 50 Mg Tablet 50 Mg PO DAILY Lorazepam 1 Mg Tablet 1 Mg PO HS Lorazepam 0.5 Mg Tablet 0.75 Mg PO BID94 Lamictal (Lamotrigine) 150 Mg Tablet 150 Mg PO BID Probiotic (Lactobacillus Acidophilus) 1 Each Capsule 1 Each PO TIDWMEALS Duoneb 0.5-3(2.5) Mg/3 Ml (Albuterol/Ipratropium) 3 Ml Ampul.neb 3 Ml NEB PRN Q4HRS PRN Fluticasone Propionate Nasal [place] (Fluticasone Propionate) 16 Gm [place].susp 2 Hixson NS DAILY Escitalopram Oxalate 10 Mg Tablet 10 Mg PO DAILY Donepezil Hcl 5 Mg Tablet 5 Mg PO HS Dicyclomine Hcl 10 Mg Capsule 10 Mg PO BID I have reviewed the current psychotropics carefully including drug interactions. Risk benefit ratio favors no change other than as noted in my dictated progress note. Diagnosis: Problems: (1) Anxiety disorder (2) Impulse control disorder (3) Psychotic depression (4) Major depressive disorder, recurrent episode (5) Dementia, vascular, with depression (6) Dementia, vascular, with delusions (7) Dementia in Alzheimer's disease with depression (8) Dementia in Alzheimer's disease with delusions HODA FERRELL MD Sep 13, 2017 21:10
[2017-09-14] MEDS: ACETAMINOPHEN 325 MG TABLET PO PRN ×3 (02:08→16:12)
[2017-09-14 05:56] VITALS: BP 159/55
[2017-09-14] MEDS: lamoTRIgine 150 MG TABLET. PO SCH ×2 (08:36→20:05)
[2017-09-14] MEDS: PANTOPRAZOLE 40 MG TABLET. PO SCH (08:36)
[2017-09-14] MEDS: DICYCLOMINE HCL 10 MG CAPSULE PO SCH ×2 (08:36→20:05)
[2017-09-14] MEDS: QUEtiapine 50 MG TABLET. PO SCH ×3 (08:36→16:13)
[2017-09-14] MEDS: FLUTICASONE 50MCG/NASAL SPRAY 16GM BOTTLE. NS SCH (08:36)
[2017-09-14] MEDS: LOSARTAN 50 MG TABLET. PO SCH (08:36)
[2017-09-14] MEDS: LACTOBACILLUS RHAMNOSUS GG 1 CAPSULE. PO SCH ×2 (08:36→20:05)
[2017-09-14] MEDS: MINOXIDIL 2.5 MG TABLET PO SCH (08:37)
[2017-09-14] MEDS: CHOLECALCIFEROL (VITAMIN D3) 50,000 UNIT CAPSULE PO SCH ×2 (08:39→09:00)
[2017-09-14 13:14] VITALS: BP 197/86
[2017-09-14] MEDS: LORazepam 0.5 MG TABLET PO SCH ×3 (16:00→20:07)
[2017-09-14 16:25] VITALS: BP 110/71
[2017-09-14] MEDS: DONEPEZIL HCL 5 MG TABLET. PO SCH (20:05)
--- NOTE | 2017-09-14 22:57 | PDOC ---
Exam Note: Alvin Note: Please also refer to the separate dictated note~for this date of service dictated separately.~Patient seen individually. Discussed the patient with Nursing staff reviewed the chart.~Reviewed interim history and current functioning. Reviewed vital signs,~Labs/ Radiology~and current medications noted below. Continue current treatment with the changes noted in the dictated addendum note Assessment: Vital Signs: Vital Signs Date Time Temp Pulse Resp B/P (MAP) Pulse Ox O2 Delivery O2 Flow Rate FiO2 09/14/17 16:25 98.6 88 16 110/71 (84) 98 09/12/17 06:34 Room Air I&O Intake and Output 09/14/17 07:00 Intake Total 1020 ml Output Total 1050 ml Balance -30 ml Intake Oral 1020 ml Output Urine Total 1050 ml Current Medications: Meds: Current Medications Acetaminophen (Tylenol) 650 mg PRN Q6HRS PRN PO PAIN / TEMP Last administered on 09/11/17at 08:26; Start 08/29/17 at 19:30; Stop 09/11/17 at 14:04; Status DC Multi-Ingredient Ointment (Analgesic [place]) 1 tia PRN QID PRN TP MUSCLE PAIN Last administered on 09/14/17at 02:09; Start 08/29/17 at 19:30 Al Hydroxide/Mg Hydroxide (Mylanta Plus Xs) 15 ml PRN AFTMEALHC PRN PO DYSPEPSIA; Start 08/29/17 at 19:30 Magnesium Hydroxide (Milk Of Magnesia) 2,400 mg PRN QHS PRN PO CONSTIPATION; Start 08/29/17 at 19:30 Donepezil HCl (Aricept) 5 mg HS PO Last administered on 09/14/17at 20:05; Start 08/29/17 at 23:00 Lorazepam (Ativan) 0.75 mg [id number] PO Last administered on 09/04/17at 16:07; Start 08/30/17 at 09:00; Stop 09/04/17 at 18:34; Status DC Lorazepam (Ativan) 1 mg HS PO Last administered on 08/30/17at 20:04; Start 08/29 at 23:00; Stop 08/31/17 at 18:25; Status DC Olanzapine (ZyPREXA) 5 mg PRN BID PRN PO ANXIETY / AGITATION Last administered on 09/03/17 13:32; Start 08/29/17 at 22:00; Stop 09/03/17 at 18:40; Status DC Dicyclomine HCl (Bentyl) 10 mg BID PO Last administered on 09/14/17at 20:05; Start 08/29/17 at 23:00 Fluticasone Propionate (Flonase) 2 spray DAILY NS Last administered on at 08:36; Start 08/30/17 at 09:00 Albuterol/ Ipratropium (Duoneb) 3 ml PRN Q4HRS PRN NEB SHORTNESS OF BREATH; Start 08/29/17 at 22:00 Lamotrigine (LaMICtal) 150 mg BID PO Last administered on 09/14/17at 20:05; Start 08/29/17 at 23:00 Losartan Potassium (Cozaar) 50 mg DAILY PO Last administered on 09/14/17at 08:36 ; Start 08/30/17 at 09:00 Minoxidil (Loniten) 10 mg DAILY PO Last administered on 09/14/17at 08:37; Start 08/30/17 at 09:00 Nicotine (Nicoderm Cq 14mg) 1 patch DAILY TD Last administered on 09/09/17 08: 16; Start 08/30/17 at 09:00; Stop 09/12/17 at 09:03; Status DC Oxcarbazepine (Trileptal) 600 mg BID PO Last administered on 09/13/17at 07:48; Start 08/30/17 at 09:00; Stop 09/13/17 at 19:36; Status DC Pantoprazole Sodium (Protonix) 40 mg DAILY PO Last administered on 09/14/17at 08 :36; Start 08/30/17 at 09:00 Trimethoprim/ Sulfamethoxazole (Bactrim Ds) 1 tab BID PO Last administered on at 09:00; Start 08/29/17 at 23:00; Stop 08/31/17 at 16:19; Status DC Citalopram Hydrobromide (CeleXA) 20 mg DAILY PO Last administered on 09/01/17at 08:39; Start 08/30/17 at 09:00; Stop 09/01/17 at 18:32; Status DC Lactobacillus Rhamnosus (Culturelle) 1 cap BID PO Last administered on 20:05; Start 08/30/17 at 09:00 Amoxicillin (Amoxil) 500 mg [id number] PO Last administered on 09/06/17at 08:35; Start 08/31/17 at 21:00; Stop 09/06/17 at 09:00; Status DC Ciprofloxacin (Cipro) 250 mg BID PO Last administered on 09/06/17at 08:35; Start 08/31/17 at 21:00; Stop 09/06/17 at 09:00; Status DC Lactobacillus Rhamnosus (Culturelle) 1 cap BID PO ; Start 08/31/17 at 21:00; Stop 08/31/17 at 21:00; Status DC Lorazepam (Ativan) 0.75 mg HS PO Last administered on 09/10/17at 19:27; Start at 21:00; Stop 09/11/17 at 19:26; Status DC Lorazepam (Ativan) 1 mg QHS PO Last administered on 08/31/17at 19:42; Start at 21:00; Stop 09/01/17 at 20:30; Status DC Fluvoxamine Maleate (Luvox) 25 mg QHS PO Last administered on 09/03/17at 20:01; Start 09/01/17 at 21:00; Stop 09/03/17 at 23:00; Status DC Fluvoxamine Maleate (Luvox) 50 mg HS PO Last administered on 09/14/17at 20:05; Start 09/04/17 at 21:00 Olanzapine (ZyPREXA ZYDIS) 2.5 mg PRN Q2HR PRN PO PSYCHOSIS Last administered on 09/13/17at 12:50; Start 09/03/17 at 18:45 Lorazepam (Ativan) 0.5 mg DAILY PO Last administered on 09/13/17at 07:50; Start 09/05/17 at 09:00; Stop 09/13/17 at 12:26; Status DC Lorazepam (Ativan) 0.75 mg 1600 PO Last administered on 09/12/17at 17:00; Start 09/05/17 at 16:00; Stop 09/13/17 at 12:26; Status DC Quetiapine Fumarate (SEROquel) 12.5 mg 0900,1300,1700 PO Last administered on at 16:22; Start 09/06/17 at 09:00; Stop 09/06/17 at 18:23; Status DC Quetiapine Fumarate (SEROquel) 25 mg 0900,1300,1700 PO Last administered on at 16:52; Start 09/07/17 at 09:00; Stop 09/07/17 at 18:14; Status DC Vitamin D (Vitamin D3) 50,000 unit WEEKLY PO Last administered on 09/07/17at 09: 15; Start 09/07/17 at 09:00 Quetiapine Fumarate (SEROquel) 37.5 mg 0900,1300,1700 PO Last administered on at 16:54; Start 09/08/17 at 09:00; Stop 09/10/17 at 18:12; Status DC Ondansetron HCl (Zofran Odt) 4 mg PRN Q8HRS PRN PO NAUSEA/VOMITING Last administered on 09/12/17at 11:26; Start 09/09/17 at 15:15 Quetiapine Fumarate (SEROquel) 50 mg 0900,1300,1700 PO Last administered on at 16:13; Start 09/11/17 at 09:00 Acetaminophen (Tylenol) 650 mg PRN Q4HRS PRN PO PAIN / TEMP Last administered on 09/14/17at 16:12; Start 09/11/17 at 14:15 Hyoscyamine (Anaspaz) 0.125 mg PRN Q4HRS PRN PO STOMACH CRAMPING Last administered on 09/12/17at 14:13; Start 09/11/17 at 14:15 Lorazepam (Ativan) 0.5 mg HS PO Last administered on 09/12/17 19:24; Start at 21:00; Stop 09/13/17 at 12:31; Status DC Nicotine (Nicoderm Cq 14mg) 1 patch PRN DAILY PRN TD smoking cessation; Start 09/13/17 at 09:00 Lorazepam (Ativan) 0.25 mg DAILY PO ; Start 09/15/17 at 09:00; Stop 09/15/17 at 09:00; Status DC Lorazepam (Ativan) 0.5 mg 1600 PO Last administered on 09/13/17at 16:34; Start 09/13/17 at 16:00; Stop 09/14/17 at 19:43; Status DC Lorazepam (Ativan) 0.25 mg HS PO ; Start 09/18/17 at 21:00; Stop 09/18/17 at 21:00 ; Status DC Oxcarbazepine (Trileptal) 600 mg DAILY PO Last administered on 09/14/17at 08:39 ; Start 09/14/17 at 09:00; Stop 09/14/17 at 19:44; Status DC Oxcarbazepine (Trileptal) 450 mg QHS PO Last administered on 09/13/17at 19:51; Start 09/13/17 at 21:00; Stop 09/14/17 at 19:44; Status DC Lorazepam (Ativan) 0.5 mg 0900,1600,2100 PO Last administered on 09/14/17at 20: 07; Start 09/14/17 at 21:00 Oxcarbazepine (Trileptal) 600 mg BID PO Last administered on 09/14/17at 20:05; Start 09/14/17 at 21:00 Active Scripts Active Reported Bactrim Ds Tablet (Sulfamethoxazole/Trimethoprim) 1 Each Tablet 1 Each PO BID Pantoprazole Sodium 40 Mg Tablet.dr 40 Mg PO DAILY Trileptal (Oxcarbazepine) 300 Mg Tablet 600 Mg PO BID Zyprexa (Olanzapine) 5 Mg Tablet 5 Mg PO PRN BID PRN NICODERM CQ 14mg (Nicotine) 1 Each Patch.td24 1 Patch TD DAILY Minoxidil 2.5 Mg Tablet 10 Mg PO DAILY Cozaar (Losartan Potassium) 50 Mg Tablet 50 Mg PO DAILY Lorazepam 1 Mg Tablet 1 Mg PO HS Lorazepam 0.5 Mg Tablet 0.75 Mg PO BID94 Lamictal (Lamotrigine) 150 Mg Tablet 150 Mg PO BID Probiotic (Lactobacillus Acidophilus) 1 Each Capsule 1 Each PO TIDWMEALS Duoneb 0.5-3(2.5) Mg/3 Ml (Albuterol/Ipratropium) 3 Ml Ampul.neb 3 Ml NEB PRN Q4HRS PRN Fluticasone Propionate Nasal [place] (Fluticasone Propionate) 16 Gm [place].susp 2 [place] NS DAILY Escitalopram Oxalate 10 Mg Tablet 10 Mg PO DAILY Donepezil Hcl 5 Mg Tablet 5 Mg PO HS Dicyclomine Hcl 10 Mg Capsule 10 Mg PO BID I have reviewed the current psychotropics carefully including drug interactions. Risk benefit ratio favors no change other than as noted in my dictated progress note. 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
[2017-09-15 06:29] VITALS: BP 156/62
[2017-09-15] MEDS: LOSARTAN 50 MG TABLET. PO SCH (08:06)
[2017-09-15] MEDS: LACTOBACILLUS RHAMNOSUS GG 1 CAPSULE. PO SCH ×2 (08:06→20:29)
[2017-09-15] MEDS: DICYCLOMINE HCL 10 MG CAPSULE PO SCH ×2 (08:07→20:29)
[2017-09-15] MEDS: lamoTRIgine 150 MG TABLET. PO SCH ×2 (08:07→20:29)
[2017-09-15] MEDS: QUEtiapine 50 MG TABLET. PO SCH ×4 (08:07→16:44)
[2017-09-15] MEDS: PANTOPRAZOLE 40 MG TABLET. PO SCH (08:07)
[2017-09-15] MEDS: MINOXIDIL 2.5 MG TABLET PO SCH (08:08)
[2017-09-15] MEDS: FLUTICASONE 50MCG/NASAL SPRAY 16GM BOTTLE. NS SCH (08:10)
[2017-09-15] MEDS: LORazepam 0.5 MG TABLET PO SCH ×3 (08:10→20:30)
[2017-09-15 08:30] LABS: BASO % 1 % (0-3); EOS # 0.1 x10^3/uL (0.0-0.7); EOS % 1 % (0-3); HEMATOCRIT 34.6 % (36.0-47.0); HEMOGLOBIN 11.8 g/dL (12.0-15.5); LYMPH # 1.5 x10^3/uL (1.0-4.8); LYMPH % 24 % (24-48); MEAN CORPUSCULAR HEMOGLOBIN 33 pg (25-35); MEAN CORPUSCULAR HGB CONC 34 g/dL (31-37); MEAN CORPUSCULAR VOLUME 96 fL (79-100); MONO # 0.7 x10^3/uL (0.0-1.1); MONO % 11 % (0-9); NEUT % 64 % (31-73); PLATELET COUNT 425 x10^3/uL (140-400); RED BLOOD COUNT 3.61 x10^6/uL (3.50-5.40); RED CELL DISTRIBUTION WIDTH 16.8 % (11.5-14.5); WHITE BLOOD COUNT 6.2 x10^3/uL (4.0-11.0)
[2017-09-15 08:49] LABS: ALBUMIN 3.5 g/dL (3.4-5.0); CALCIUM 9.1 mg/dL (8.5-10.1); CREATININE 0.7 mg/dL (0.6-1.0); GFR 82.5; POTASSIUM 4.5 mmol/L (3.5-5.1); TOTAL BILIRUBIN 0.2 mg/dL (0.2-1.0)
[2017-09-15] MEDS ORDERED: LORazepam 0.5 MG TABLET PO SCH (09:00)
[2017-09-15] MEDS: ACETAMINOPHEN 325 MG TABLET PO PRN ×2 (09:14→19:03)
--- NOTE | 2017-09-15 11:11 | PN ---
DATE: 09/12/2017 PSYCHIATRIC PROGRESS NOTE This is a late entry 09/12/2017, covers elements not covered in my initial note 09/12/2017. SUBJECTIVE: I met with the patient in the evening. Per nursing report, she has had a little better day, calmer. Her daughter questions whether the patient could have gluten intolerance causing all of her mental status changes. Nursing staff have addressed this with Dr. Da Silva. Nothing clearly to indicate this, but we will check with the dietitian whether she can be on a gluten-free diet to see if it makes any difference. REVIEW OF SYSTEMS: Ambulation impaired, in wheelchair. No CV, , pulmonary, eye system symptoms on review. MENTAL STATUS EXAM: Oriented to herself and situation. Speech has some latency, at times rapid otherwise, abstraction fair, computation impaired, language function intact. Mood and affect remain somewhat labile, but less so than before. LABORATORY DATA: Reviewed. IMPRESSION: Unchanged from initial note. PLAN: Continue current psychotropics for now. MAN Lavon FERRELL MD DR: ETHAN/hernesto JOB#: [id number] / [id number]
[2017-09-15 17:26] VITALS: BP 151/74
[2017-09-15] MEDS: DONEPEZIL HCL 5 MG TABLET. PO SCH (20:29)
--- NOTE | 2017-09-15 21:38 | PN ---
DATE: 09/13/2017 PSYCHIATRIC PROGRESS NOTE This is a late entry for 09/13/2017, covers elements not covered in my initial note of 09/13/2017. SUBJECTIVE: The patient was staffed at a treatment team meeting with the entire team. In the morning reviewed her history at length and progress, and seen individually in the evening. The patient is sleeping reasonably well. In the evening, she was "horrible, sarcastic, snarky, refused her medications at 1:00 p.m." per nursing report. Her daughter wonders that the patient has celiac disease causing all her mental status changes. We will have a dietary consult for gluten-free diet and I will defer the medical site to Dr. Da Silva. REVIEW OF SYSTEMS: Ambulation impaired, in wheelchair. No CV, , pulmonary, eye system symptoms on review. MENTAL STATUS EXAM: Oriented to herself and situation. Speech coherent, less pressured. Abstraction fair, computation impaired, language function intact. Mood and affect somewhat labile. LABORATORY DATA: Reviewed. IMPRESSION: Unchanged from initial note. PLAN: Continue psychotropics mentioned in my initial note. MAN Lavon FERRELL MD DR: ETHAN/hernesto JOB#: [id number] / [id number]
--- NOTE | 2017-09-15 22:28 | PDOC ---
Exam Note: Alvin Note: Please also refer to the separate dictated note~for this date of service dictated separately.~Patient seen individually. Discussed the patient with Nursing staff reviewed the chart.~Reviewed interim history and current functioning. Reviewed vital signs,~Labs/ Radiology~and current medications noted below. Continue current treatment with the changes noted in the dictated addendum note Assessment: Vital Signs: Vital Signs Date Time Temp Pulse Resp B/P (MAP) Pulse Ox O2 Delivery O2 Flow Rate FiO2 09/15/17 17:26 97.5 89 16 151/74 (99) 98 09/12/17 06:34 Room Air I&O Intake and Output 09/15/17 07:00 Intake Total 720 ml Output Total 900 ml Balance -180 ml Intake Oral 720 ml Output Urine Total 900 ml # Bowel Movements 3 Labs: Laboratory Tests Test 09/15/17 07:42 White Blood Count 6.2 x10^3/uL (4.0-11.0) Red Blood Count 3.61 x10^6/uL (3.50-5.40) Hemoglobin 11.8 g/dL (12.0-15.5) L Hematocrit 34.6 % (36.0-47.0) L Mean Corpuscular Volume 96 fL (79-100) Mean Corpuscular Hemoglobin 33 pg (25-35) Mean Corpuscular Hemoglobin Concent 34 g/dL (31-37) Red Cell Distribution Width 16.8 % (11.5-14.5) H Platelet Count 425 x10^3/uL (140-400) H Neutrophils (%) (Auto) 64 % (31-73) Lymphocytes (%) (Auto) 24 % (24-48) Monocytes (%) (Auto) 11 % (0-9) H Eosinophils (%) (Auto) 1 % (0-3) Basophils (%) (Auto) 1 % (0-3) Neutrophils # (Auto) 4.0 x10^3uL (1.8-7.7) Lymphocytes # (Auto) 1.5 x10^3/uL (1.0-4.8) Monocytes # (Auto) 0.7 x10^3/uL (0.0-1.1) Eosinophils # (Auto) 0.1 x10^3/uL (0.0-0.7) Basophils # (Auto) 0.0 x10^3/uL (0.0-0.2) Sodium Level 132 mmol/L (136-145) L Potassium Level 4.5 mmol/L (3.5-5.1) Chloride Level 97 mmol/L (98-107) L Carbon Dioxide Level 29 mmol/L (21-32) Anion Gap 6 (6-14) Blood Urea Nitrogen 13 mg/dL (7-20) Creatinine 0.7 mg/dL (0.6-1.0) Estimated GFR (Cockcroft-Gault) 82.5 BUN/Creatinine Ratio 19 (6-20) Glucose Level 85 mg/dL (70-99) Calcium Level 9.1 mg/dL (8.5-10.1) Total Bilirubin 0.2 mg/dL (0.2-1.0) Aspartate Amino Transferase (AST) 19 U/L (15-37) Alanine Aminotransferase (ALT) 22 U/L (14-59) Alkaline Phosphatase 111 U/L (46-116) Total Protein 7.0 g/dL (6.4-8.2) Albumin 3.5 g/dL (3.4-5.0) Albumin/Globulin Ratio 1.0 (1.0-1.7) Current Medications: Meds: Current Medications Acetaminophen (Tylenol) 650 mg PRN Q6HRS PRN PO PAIN / TEMP Last administered on 09/11/17at 08:26; Start 08/29/17 at 19:30; Stop 09/11/17 at 14:04; Status DC Multi-Ingredient Ointment (Analgesic [place]) 1 tia PRN QID PRN TP MUSCLE PAIN Last administered on 09/14/17at 02:09; Start 08/29/17 at 19:30 Al Hydroxide/Mg Hydroxide (Mylanta Plus Xs) 15 ml PRN AFTMEALHC PRN PO DYSPEPSIA; Start 08/29/17 at 19:30 Magnesium Hydroxide (Milk Of Magnesia) 2,400 mg PRN QHS PRN PO CONSTIPATION; Start 08/29/17 at 19:30 Donepezil HCl (Aricept) 5 mg HS PO Last administered on 09/15/17at 20:29; Start 08/29/17 at 23:00 Lorazepam (Ativan) 0.75 mg [id number] PO Last administered on 09/04/17at 16:07; Start 08/30/17 at 09:00; Stop 09/04/17 at 18:34; Status DC Lorazepam (Ativan) 1 mg HS PO Last administered on 08/30/17at 20:04; Start 08/29 at 23:00; Stop 08/31/17 at 18:25; Status DC Olanzapine (ZyPREXA) 5 mg PRN BID PRN PO ANXIETY / AGITATION Last administered on 09/03/17at 13:32; Start 08/29/17 at 22:00; Stop 09/03/17 at 18:40; Status DC Dicyclomine HCl (Bentyl) 10 mg BID PO Last administered on 09/15/17at 20:29; Start 08/29/17 at 23:00 Fluticasone Propionate (Flonase) 2 spray DAILY NS Last administered on at 08:10; Start 08/30/17 at 09:00 Albuterol/ Ipratropium (Duoneb) 3 ml PRN Q4HRS PRN NEB SHORTNESS OF BREATH; Start 08/29/17 at 22:00 Lamotrigine (LaMICtal) 150 mg BID PO Last administered on 09/15/17at 20:29; Start 08/29/17 at 23:00 Losartan Potassium (Cozaar) 50 mg DAILY PO Last administered on 09/15/17at 08:06 ; Start 08/30/17 at 09:00 Minoxidil (Loniten) 10 mg DAILY PO Last administered on 09/15/17at 08:08; Start 08/30/17 at 09:00 Nicotine (Nicoderm Cq 14mg) 1 patch DAILY TD Last administered on 09/09/17at 08: 16; Start 08/30/17 at 09:00; Stop 09/12/17 at 09:03; Status DC Oxcarbazepine (Trileptal) 600 mg BID PO Last administered on 09/13/17at 07:48; Start 08/30/17 at 09:00; Stop 09/13/17 at 19:36; Status DC Pantoprazole Sodium (Protonix) 40 mg DAILY PO Last administered on 09/15/17at 08 :07; Start 08/30/17 at 09:00 Trimethoprim/ Sulfamethoxazole (Bactrim Ds) 1 tab BID PO Last administered on 09:00; Start 08/29/17 at 23:00; Stop 08/31/17 at 16:19; Status DC Citalopram Hydrobromide (CeleXA) 20 mg DAILY PO Last administered on 09/01/17at 08:39; Start 08/30/17 at 09:00; Stop 09/01/17 at 18:32; Status DC Lactobacillus Rhamnosus (Culturelle) 1 cap BID PO Last administered on at 20:29; Start 08/30/17 at 09:00 Amoxicillin (Amoxil) 500 mg [id number] PO Last administered on 09/06/17 08:35; Start 08/31/17 at 21:00; Stop 09/06/17 at 09:00; Status DC Ciprofloxacin (Cipro) 250 mg BID PO Last administered on 09/06/17 08:35; Start 08/31/17 at 21:00; Stop 09/06/17 at 09:00; Status DC Lactobacillus Rhamnosus (Culturelle) 1 cap BID PO ; Start 08/31/17 at 21:00; Stop 08/31/17 at 21:00; Status DC Lorazepam (Ativan) 0.75 mg HS PO Last administered on 09/10/17at 19:27; Start at 21:00; Stop 09/11/17 at 19:26; Status DC Lorazepam (Ativan) 1 mg QHS PO Last administered on 08/31/17at 19:42; Start at 21:00; Stop 09/01/17 at 20:30; Status DC Fluvoxamine Maleate (Luvox) 25 mg QHS PO Last administered on 09/03/17at 20:01; Start 09/01/17 at 21:00; Stop 09/03/17 at 23:00; Status DC Fluvoxamine Maleate (Luvox) 50 mg HS PO Last administered on 09/15/17 20:29; Start 09/04/17 at 21:00 Olanzapine (ZyPREXA ZYDIS) 2.5 mg PRN Q2HR PRN PO PSYCHOSIS Last administered on 09/13/17at 12:50; Start 09/03/17 at 18:45 Lorazepam (Ativan) 0.5 mg DAILY PO Last administered on 09/13/17 07:50; Start 09/05/17 at 09:00; Stop 09/13/17 at 12:26; Status DC Lorazepam (Ativan) 0.75 mg 1600 PO Last administered on 09/12/17 17:00; Start 09/05/17 at 16:00; Stop 09/13/17 at 12:26; Status DC Quetiapine Fumarate (SEROquel) 12.5 mg 0900,1300,1700 PO Last administered on at 16:22; Start 09/06/17 at 09:00; Stop 09/06/17 at 18:23; Status DC Quetiapine Fumarate (SEROquel) 25 mg 0900,1300,1700 PO Last administered on 16:52; Start 09/07/17 at 09:00; Stop 09/07/17 at 18:14; Status DC Vitamin D (Vitamin D3) 50,000 unit WEEKLY PO Last administered on 09/07/17 09: 15; Start 09/07/17 at 09:00 Quetiapine Fumarate (SEROquel) 37.5 mg 0900,1300,1700 PO Last administered on 16:54; Start 09/08/17 at 09:00; Stop 09/10/17 at 18:12; Status DC Ondansetron HCl (Zofran Odt) 4 mg PRN Q8HRS PRN PO NAUSEA/VOMITING Last administered on 09/12/17 11:26; Start 09/09/17 at 15:15 Quetiapine Fumarate (SEROquel) 50 mg 0900,1300,1700 PO Last administered on 16:44; Start 09/11/17 at 09:00 Acetaminophen (Tylenol) 650 mg PRN Q4HRS PRN PO PAIN / TEMP Last administered on 09/15/17 19:03; Start 09/11/17 at 14:15 Hyoscyamine (Anaspaz) 0.125 mg PRN Q4HRS PRN PO STOMACH CRAMPING Last administered on 09/12/17 14:13; Start 09/11/17 at 14:15 Lorazepam (Ativan) 0.5 mg HS PO Last administered on 4/25/18at 19:24; Start at 21:00; Stop 09/13/17 at 12:31; Status DC Nicotine (Nicoderm Cq 14mg) 1 patch PRN DAILY PRN TD smoking cessation; Start 09/13/17 at 09:00 Lorazepam (Ativan) 0.25 mg DAILY PO ; Start 09/15/17 at 09:00; Stop 09/15/17 at 09:00; Status DC Lorazepam (Ativan) 0.5 mg 1600 PO Last administered on 09/13/17at 16:34; Start 09/13/17 at 16:00; Stop 09/14/17 at 19:43; Status DC Lorazepam (Ativan) 0.25 mg HS PO ; Start 09/18/17 at 21:00; Stop 09/18/17 at 21:00 ; Status DC Oxcarbazepine (Trileptal) 600 mg DAILY PO Last administered on 09/14/17at 08:39 ; Start 09/14/17 at 09:00; Stop 09/14/17 at 19:44; Status DC Oxcarbazepine (Trileptal) 450 mg QHS PO Last administered on 09/13/17at 19:51; Start 09/13/17 at 21:00; Stop 09/14/17 at 19:44; Status DC Lorazepam (Ativan) 0.5 mg 0900,1600,2100 PO Last administered on 09/15/17at 20: 30; Start 09/14/17 at 21:00 Oxcarbazepine (Trileptal) 600 mg BID PO Last administered on 09/15/17at 20:29; Start 09/14/17 at 21:00 Active Scripts Active Reported Bactrim Ds Tablet (Sulfamethoxazole/Trimethoprim) 1 Each Tablet 1 Each PO BID Pantoprazole Sodium 40 Mg Tablet.dr 40 Mg PO DAILY Trileptal (Oxcarbazepine) 300 Mg Tablet 600 Mg PO BID Zyprexa (Olanzapine) 5 Mg Tablet 5 Mg PO PRN BID PRN NICODERM CQ 14mg (Nicotine) 1 Each Patch.td24 1 Patch TD DAILY Minoxidil 2.5 Mg Tablet 10 Mg PO DAILY Cozaar (Losartan Potassium) 50 Mg Tablet 50 Mg PO DAILY Lorazepam 1 Mg Tablet 1 Mg PO HS Lorazepam 0.5 Mg Tablet 0.75 Mg PO BID94 Lamictal (Lamotrigine) 150 Mg Tablet 150 Mg PO BID Probiotic (Lactobacillus Acidophilus) 1 Each Capsule 1 Each PO TIDWMEALS Duoneb 0.5-3(2.5) Mg/3 Ml (Albuterol/Ipratropium) 3 Ml Ampul.neb 3 Ml NEB PRN Q4HRS PRN Fluticasone Propionate Nasal [place] (Fluticasone Propionate) 16 Gm [place].susp 2 [place] NS DAILY Escitalopram Oxalate 10 Mg Tablet 10 Mg PO DAILY Donepezil Hcl 5 Mg Tablet 5 Mg PO HS Dicyclomine Hcl 10 Mg Capsule 10 Mg PO BID I have reviewed the current psychotropics carefully including drug interactions. Risk benefit ratio favors no change other than as noted in my dictated progress note. 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
[2017-09-16 06:20] VITALS: BP 175/77
[2017-09-16] MEDS: LACTOBACILLUS RHAMNOSUS GG 1 CAPSULE. PO SCH ×2 (08:20→19:47)
[2017-09-16] MEDS: QUEtiapine 50 MG TABLET. PO SCH ×3 (08:20→17:23)
[2017-09-16] MEDS: LORazepam 0.5 MG TABLET PO SCH ×3 (08:20→19:55)
[2017-09-16] MEDS: PANTOPRAZOLE 40 MG TABLET. PO SCH (08:20)
[2017-09-16] MEDS: lamoTRIgine 150 MG TABLET. PO SCH ×2 (08:20→19:47)
[2017-09-16] MEDS: LOSARTAN 50 MG TABLET. PO SCH (08:21)
[2017-09-16] MEDS: MINOXIDIL 2.5 MG TABLET PO SCH (08:21)
[2017-09-16] MEDS: DICYCLOMINE HCL 10 MG CAPSULE PO SCH ×2 (08:22→19:47)
[2017-09-16] MEDS: FLUTICASONE 50MCG/NASAL SPRAY 16GM BOTTLE. NS SCH (08:22)
[2017-09-16 08:36] LABS: CALCIUM 9.1 mg/dL (8.5-10.1); CREATININE 0.7 mg/dL (0.6-1.0); GFR 82.5; POTASSIUM 4.2 mmol/L (3.5-5.1)
[2017-09-16] MEDS: ACETAMINOPHEN 325 MG TABLET PO PRN ×2 (11:39→15:44)
[2017-09-16 16:13] VITALS: BP 108/64
[2017-09-16] MEDS: DONEPEZIL HCL 5 MG TABLET. PO SCH (19:46)
--- NOTE | 2017-09-16 20:43 | PDOC ---
Exam Note: Alvin Note: Please also refer to the separate dictated note~for this date of service dictated separately.~Patient seen individually. Discussed the patient with Nursing staff reviewed the chart.~Reviewed interim history and current functioning. Reviewed vital signs,~Labs/ Radiology~and current medications noted below. Continue current treatment with the changes noted in the dictated addendum note Assessment: Vital Signs: Vital Signs Date Time Temp Pulse Resp B/P (MAP) Pulse Ox O2 Delivery O2 Flow Rate FiO2 09/16/17 16:13 97.4 93 18 108/64 (79) 97 09/12/17 06:34 Room Air I&O Intake and Output 09/16/17 07:00 Intake Total 660 ml Output Total 525 ml Balance 135 ml Intake Oral 660 ml Output Urine Total 525 ml # Bowel Movements 2 Labs: Laboratory Tests Test 09/16/17 07:23 Sodium Level 135 mmol/L (136-145) L Potassium Level 4.2 mmol/L (3.5-5.1) Chloride Level 97 mmol/L (98-107) L Carbon Dioxide Level 29 mmol/L (21-32) Anion Gap 9 (6-14) Blood Urea Nitrogen 16 mg/dL (7-20) Creatinine 0.7 mg/dL (0.6-1.0) Estimated GFR (Cockcroft-Gault) 82.5 Glucose Level 86 mg/dL (70-99) Calcium Level 9.1 mg/dL (8.5-10.1) Current Medications: Meds: Current Medications Acetaminophen (Tylenol) 650 mg PRN Q6HRS PRN PO PAIN / TEMP Last administered on 09/11/17at 08:26; Start 08/29/17 at 19:30; Stop 09/11/17 at 14:04; Status DC Multi-Ingredient Ointment (Analgesic [place]) 1 tia PRN QID PRN TP MUSCLE PAIN Last administered on 09/14/17at 02:09; Start 08/29/17 at 19:30 Al Hydroxide/Mg Hydroxide (Mylanta Plus Xs) 15 ml PRN AFTMEALHC PRN PO DYSPEPSIA; Start 08/29/17 at 19:30 Magnesium Hydroxide (Milk Of Magnesia) 2,400 mg PRN QHS PRN PO CONSTIPATION; Start 08/29/17 at 19:30 Donepezil HCl (Aricept) 5 mg HS PO Last administered on 09/16/17 19:46; Start 08/29/17 at 23:00 Lorazepam (Ativan) 0.75 mg [id number] PO Last administered on 09/04/17 16:07; Start 08/30/17 at 09:00; Stop 09/04/17 at 18:34; Status DC Lorazepam (Ativan) 1 mg HS PO Last administered on 08/30/17 20:04; Start 08/29 at 23:00; Stop 08/31/17 at 18:25; Status DC Olanzapine (ZyPREXA) 5 mg PRN BID PRN PO ANXIETY / AGITATION Last administered on 09/03/17 13:32; Start 08/29/17 at 22:00; Stop 09/03/17 at 18:40; Status DC Dicyclomine HCl (Bentyl) 10 mg BID PO Last administered on 09/16/17 19:47; Start 08/29/17 at 23:00 Fluticasone Propionate (Flonase) 2 spray DAILY NS Last administered on 08:22; Start 08/30/17 at 09:00 Albuterol/ Ipratropium (Duoneb) 3 ml PRN Q4HRS PRN NEB SHORTNESS OF BREATH; Start 08/29/17 at 22:00 Lamotrigine (LaMICtal) 150 mg BID PO Last administered on 09/16/17 19:47; Start 08/29/17 at 23:00 Losartan Potassium (Cozaar) 50 mg DAILY PO Last administered on 09/16/17 08:21 ; Start 08/30/17 at 09:00 Minoxidil (Loniten) 10 mg DAILY PO Last administered on 09/16/17 08:21; Start 08/30/17 at 09:00 Nicotine (Nicoderm Cq 14mg) 1 patch DAILY TD Last administered on 09/09/17 08: 16; Start 08/30/17 at 09:00; Stop 09/12/17 at 09:03; Status DC Oxcarbazepine (Trileptal) 600 mg BID PO Last administered on 09/13/17 07:48; Start 08/30/17 at 09:00; Stop 09/13/17 at 19:36; Status DC Pantoprazole Sodium (Protonix) 40 mg DAILY PO Last administered on 09/16/17 08 :20; Start 08/30/17 at 09:00 Trimethoprim/ Sulfamethoxazole (Bactrim Ds) 1 tab BID PO Last administered on 09:00; Start 08/29/17 at 23:00; Stop 08/31/17 at 16:19; Status DC Citalopram Hydrobromide (CeleXA) 20 mg DAILY PO Last administered on 09/01/17at 08:39; Start 08/30/17 at 09:00; Stop 09/01/17 at 18:32; Status DC Lactobacillus Rhamnosus (Culturelle) 1 cap BID PO Last administered on at 19:47; Start 08/30/17 at 09:00 Amoxicillin (Amoxil) 500 mg [id number] PO Last administered on 09/06/17 08:35; Start 08/31/17 at 21:00; Stop 09/06/17 at 09:00; Status DC Ciprofloxacin (Cipro) 250 mg BID PO Last administered on 09/06/17at 08:35; Start 08/31/17 at 21:00; Stop 09/06/17 at 09:00; Status DC Lactobacillus Rhamnosus (Culturelle) 1 cap BID PO ; Start 08/31/17 at 21:00; Stop 08/31/17 at 21:00; Status DC Lorazepam (Ativan) 0.75 mg HS PO Last administered on 09/10/17at 19:27; Start at 21:00; Stop 09/11/17 at 19:26; Status DC Lorazepam (Ativan) 1 mg QHS PO Last administered on 08/31/17at 19:42; Start at 21:00; Stop 09/01/17 at 20:30; Status DC Fluvoxamine Maleate (Luvox) 25 mg QHS PO Last administered on 09/03/17at 20:01; Start 09/01/17 at 21:00; Stop 09/03/17 at 23:00; Status DC Fluvoxamine Maleate (Luvox) 50 mg HS PO Last administered on 09/16/17 19:47; Start 09/04/17 at 21:00 Olanzapine (ZyPREXA ZYDIS) 2.5 mg PRN Q2HR PRN PO PSYCHOSIS Last administered on 09/13/17 12:50; Start 09/03/17 at 18:45 Lorazepam (Ativan) 0.5 mg DAILY PO Last administered on 09/13/17 07:50; Start 09/05/17 at 09:00; Stop 09/13/17 at 12:26; Status DC Lorazepam (Ativan) 0.75 mg 1600 PO Last administered on 09/12/17 17:00; Start 09/05/17 at 16:00; Stop 09/13/17 at 12:26; Status DC Quetiapine Fumarate (SEROquel) 12.5 mg 0900,1300,1700 PO Last administered on at 16:22; Start 09/06/17 at 09:00; Stop 09/06/17 at 18:23; Status DC Quetiapine Fumarate (SEROquel) 25 mg 0900,1300,1700 PO Last administered on at 16:52; Start 09/07/17 at 09:00; Stop 09/07/17 at 18:14; Status DC Vitamin D (Vitamin D3) 50,000 unit WEEKLY PO Last administered on 09/07/17 09: 15; Start 09/07/17 at 09:00 Quetiapine Fumarate (SEROquel) 37.5 mg 0900,1300,1700 PO Last administered on at 16:54; Start 09/08/17 at 09:00; Stop 09/10/17 at 18:12; Status DC Ondansetron HCl (Zofran Odt) 4 mg PRN Q8HRS PRN PO NAUSEA/VOMITING Last administered on 09/12/17 11:26; Start 09/09/17 at 15:15 Quetiapine Fumarate (SEROquel) 50 mg 0900,1300,1700 PO Last administered on 17:23; Start 09/11/17 at 09:00 Acetaminophen (Tylenol) 650 mg PRN Q4HRS PRN PO PAIN / TEMP Last administered on 09/16/17at 15:44; Start 09/11/17 at 14:15 Hyoscyamine (Anaspaz) 0.125 mg PRN Q4HRS PRN PO STOMACH CRAMPING Last administered on 09/12/17at 14:13; Start 09/11/17 at 14:15 Lorazepam (Ativan) 0.5 mg HS PO Last administered on 09/12/17at 19:24; Start at 21:00; Stop 09/13/17 at 12:31; Status DC Nicotine (Nicoderm Cq 14mg) 1 patch PRN DAILY PRN TD smoking cessation; Start 09/13/17 at 09:00 Lorazepam (Ativan) 0.25 mg DAILY PO ; Start 09/15/17 at 09:00; Stop 09/15/17 at 09:00; Status DC Lorazepam (Ativan) 0.5 mg 1600 PO Last administered on 09/13/17at 16:34; Start 09/13/17 at 16:00; Stop 09/14/17 at 19:43; Status DC Lorazepam (Ativan) 0.25 mg HS PO ; Start 09/18/17 at 21:00; Stop 09/18/17 at 21:00 ; Status DC Oxcarbazepine (Trileptal) 600 mg DAILY PO Last administered on 09/14/17at 08:39 ; Start 09/14/17 at 09:00; Stop 09/14/17 at 19:44; Status DC Oxcarbazepine (Trileptal) 450 mg QHS PO Last administered on 09/13/17at 19:51; Start 09/13/17 at 21:00; Stop 09/14/17 at 19:44; Status DC Lorazepam (Ativan) 0.5 mg 0900,1600,2100 PO Last administered on 09/16/17at 19: 55; Start 09/14/17 at 21:00; Stop 09/18/17 at 20:59 Oxcarbazepine (Trileptal) 600 mg BID PO Last administered on 09/16/17at 19:47; Start 09/14/17 at 21:00 Lorazepam (Ativan) 0.25 mg QHS PO ; Start 09/18/17 at 21:00 Lorazepam (Ativan) 0.5 mg BID@0900,1600 PO ; Start 09/19/17 at 09:00 Active Scripts Active Reported Bactrim Ds Tablet (Sulfamethoxazole/Trimethoprim) 1 Each Tablet 1 Each PO BID Pantoprazole Sodium 40 Mg Tablet.dr 40 Mg PO DAILY Trileptal (Oxcarbazepine) 300 Mg Tablet 600 Mg PO BID Zyprexa (Olanzapine) 5 Mg Tablet 5 Mg PO PRN BID PRN NICODERM CQ 14mg (Nicotine) 1 Each Patch.td24 1 Patch TD DAILY Minoxidil 2.5 Mg Tablet 10 Mg PO DAILY Cozaar (Losartan Potassium) 50 Mg Tablet 50 Mg PO DAILY Lorazepam 1 Mg Tablet 1 Mg PO HS Lorazepam 0.5 Mg Tablet 0.75 Mg PO BID94 Lamictal (Lamotrigine) 150 Mg Tablet 150 Mg PO BID Probiotic (Lactobacillus Acidophilus) 1 Each Capsule 1 Each PO TIDWMEALS Duoneb 0.5-3(2.5) Mg/3 Ml (Albuterol/Ipratropium) 3 Ml Ampul.neb 3 Ml NEB PRN Q4HRS PRN Fluticasone Propionate Nasal [place] (Fluticasone Propionate) 16 Gm [place].susp 2 [place] NS DAILY Escitalopram Oxalate 10 Mg Tablet 10 Mg PO DAILY Donepezil Hcl 5 Mg Tablet 5 Mg PO HS Dicyclomine Hcl 10 Mg Capsule 10 Mg PO BID I have reviewed the current psychotropics carefully including drug interactions. Risk benefit ratio favors no change other than as noted in my dictated progress note. 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
--- NOTE | 2017-09-16 23:28 | PN ---
DATE: 09/16/2017 NO DICTATION. MAN Lavon FERRELL MD DR: Nishant JOB#: [id number] / [id number]
--- NOTE | 2017-09-16 23:40 | PN ---
DATE: 09/14/2017 This is a late entry of 09/14/2017 covers elements not covered in my initial note of 09/14/2017. SUBJECTIVE: I met with the patient in the evening. The patient continues to be irritable, sarcastic per nursing report, picks through her medications, picking and choosing what she takes and what she refuses. She refused her Ativan at 04:00 p.m., talking about having to go to her parents' home. After dinner reportedly, she talked to her daughter Kamilah and reportedly Mirta called at 04:00 p.m. per nursing report. She had a quasi seizure-like episode around 01:[address] Martines has been consulted. We will also stop the taper of the Ativan for now and increase her Trileptal back to 600 mg twice a day to prevent any recurrence if this in fact was a seizure and is not entirely clear. REVIEW OF SYSTEMS: Ambulation impaired, in wheelchair. No CV, , pulmonary, eye system symptoms on review, has vague somatic symptoms, anxious, restless as I met with her. MENTAL STATUS EXAM: Oriented to herself and situation. Speech coherent, rapid at times. Abstraction fair, computation impaired, language function intact, attention span short. Mood and affect remains somewhat anxious, labile. LABORATORY DATA: Reviewed. IMPRESSION: Unchanged from initial note. PLAN: Continue current psychotropics with the changes noted above. MAN Lavon FERRELL MD DR: ETHAN/hernesto JOB#: [id number] / [id number]
[2017-09-17 06:12] VITALS: BP 175/67
[2017-09-17] MEDS: DICYCLOMINE HCL 10 MG CAPSULE PO SCH ×2 (08:18→19:47)
[2017-09-17] MEDS: QUEtiapine 50 MG TABLET. PO SCH ×3 (08:18→17:12)
[2017-09-17] MEDS: LORazepam 0.5 MG TABLET PO SCH ×3 (08:18→19:48)
[2017-09-17] MEDS: lamoTRIgine 150 MG TABLET. PO SCH ×2 (08:19→19:47)
[2017-09-17] MEDS: PANTOPRAZOLE 40 MG TABLET. PO SCH (08:19)
[2017-09-17] MEDS: LOSARTAN 50 MG TABLET. PO SCH (08:19)
[2017-09-17] MEDS: LACTOBACILLUS RHAMNOSUS GG 1 CAPSULE. PO SCH ×2 (08:19→19:47)
[2017-09-17] MEDS: MINOXIDIL 2.5 MG TABLET PO SCH (08:20)
[2017-09-17] MEDS: FLUTICASONE 50MCG/NASAL SPRAY 16GM BOTTLE. NS SCH (08:20)
[2017-09-17] MEDS: ACETAMINOPHEN 325 MG TABLET PO PRN ×2 (08:21→18:27)
[2017-09-17] MEDS: NICOTINE 14MG PATCH. TD PRN (08:34)
[2017-09-17 16:09] VITALS: BP 136/60
[2017-09-17] MEDS: DONEPEZIL HCL 5 MG TABLET. PO SCH (19:47)
--- NOTE | 2017-09-17 21:31 | PDOC ---
Exam Note: Alvin Note: Please also refer to the separate dictated note~for this date of service dictated separately.~Patient seen individually. Discussed the patient with Nursing staff reviewed the chart.~Reviewed interim history and current functioning. Reviewed vital signs,~Labs/ Radiology~and current medications noted below. Continue current treatment with the changes noted in the dictated addendum note Assessment: Vital Signs: Vital Signs Date Time Temp Pulse Resp B/P (MAP) Pulse Ox O2 Delivery O2 Flow Rate FiO2 09/17/17 16:09 99.2 73 18 136/60 (85) 96 09/12/17 06:34 Room Air I&O Intake and Output 09/17/17 07:00 Intake Total 1320 ml Output Total 1025 ml Balance 295 ml Intake Oral 1320 ml Output Urine Total 1025 ml Current Medications: Meds: Current Medications Acetaminophen (Tylenol) 650 mg PRN Q6HRS PRN PO PAIN / TEMP Last administered on 09/11/17at 08:26; Start 08/29/17 at 19:30; Stop 09/11/17 at 14:04; Status DC Multi-Ingredient Ointment (Analgesic [place]) 1 tia PRN QID PRN TP MUSCLE PAIN Last administered on 09/14/17at 02:09; Start 08/29/17 at 19:30 Al Hydroxide/Mg Hydroxide (Mylanta Plus Xs) 15 ml PRN AFTMEALHC PRN PO DYSPEPSIA; Start 08/29/17 at 19:30 Magnesium Hydroxide (Milk Of Magnesia) 2,400 mg PRN QHS PRN PO CONSTIPATION; Start 08/29/17 at 19:30 Donepezil HCl (Aricept) 5 mg HS PO Last administered on 09/17/17at 19:47; Start 08/29/17 at 23:00 Lorazepam (Ativan) 0.75 mg BID94 PO Last administered on 09/04/17at 16:07; Start 08/30/17 at 09:00; Stop 09/04/17 at 18:34; Status DC Lorazepam (Ativan) 1 mg HS PO Last administered on 08/30/17at 20:04; Start 08/29 at 23:00; Stop 08/31/17 at 18:25; Status DC Olanzapine (ZyPREXA) 5 mg PRN BID PRN PO ANXIETY / AGITATION Last administered on 09/03/17 13:32; Start 08/29/17 at 22:00; Stop 09/03/17 at 18:40; Status DC Dicyclomine HCl (Bentyl) 10 mg BID PO Last administered on 09/17/17 19:47; Start 08/29/17 at 23:00 Fluticasone Propionate (Flonase) 2 spray DAILY NS Last administered on 08:20; Start 08/30/17 at 09:00 Albuterol/ Ipratropium (Duoneb) 3 ml PRN Q4HRS PRN NEB SHORTNESS OF BREATH; Start 08/29/17 at 22:00 Lamotrigine (LaMICtal) 150 mg BID PO Last administered on 09/17/17 19:47; Start 08/29/17 at 23:00 Losartan Potassium (Cozaar) 50 mg DAILY PO Last administered on 09/17/17 08:19 ; Start 08/30/17 at 09:00 Minoxidil (Loniten) 10 mg DAILY PO Last administered on 09/17/17 08:20; Start 08/30/17 at 09:00 Nicotine (Nicoderm Cq 14mg) 1 patch DAILY TD Last administered on 09/09/17 08: 16; Start 08/30/17 at 09:00; Stop 09/12/17 at 09:03; Status DC Oxcarbazepine (Trileptal) 600 mg BID PO Last administered on 09/13/17at 07:48; Start 08/30/17 at 09:00; Stop 09/13/17 at 19:36; Status DC Pantoprazole Sodium (Protonix) 40 mg DAILY PO Last administered on 09/17/17 08 :19; Start 08/30/17 at 09:00 Trimethoprim/ Sulfamethoxazole (Bactrim Ds) 1 tab BID PO Last administered on at 09:00; Start 08/29/17 at 23:00; Stop 08/31/17 at 16:19; Status DC Citalopram Hydrobromide (CeleXA) 20 mg DAILY PO Last administered on 09/01/17at 08:39; Start 08/30/17 at 09:00; Stop 09/01/17 at 18:32; Status DC Lactobacillus Rhamnosus (Culturelle) 1 cap BID PO Last administered on 19:47; Start 08/30/17 at 09:00 Amoxicillin (Amoxil) 500 mg [id number] PO Last administered on 09/06/17at 08:35; Start 08/31/17 at 21:00; Stop 09/06/17 at 09:00; Status DC Ciprofloxacin (Cipro) 250 mg BID PO Last administered on 09/06/17at 08:35; Start 08/31/17 at 21:00; Stop 09/06/17 at 09:00; Status DC Lactobacillus Rhamnosus (Culturelle) 1 cap BID PO ; Start 08/31/17 at 21:00; Stop 08/31/17 at 21:00; Status DC Lorazepam (Ativan) 0.75 mg HS PO Last administered on 09/10/17at 19:27; Start at 21:00; Stop 09/11/17 at 19:26; Status DC Lorazepam (Ativan) 1 mg QHS PO Last administered on 08/31/17at 19:42; Start at 21:00; Stop 09/01/17 at 20:30; Status DC Fluvoxamine Maleate (Luvox) 25 mg QHS PO Last administered on 09/03/17at 20:01; Start 09/01/17 at 21:00; Stop 09/03/17 at 23:00; Status DC Fluvoxamine Maleate (Luvox) 50 mg HS PO Last administered on 09/16/17at 19:47; Start 09/04/17 at 21:00; Stop 09/17/17 at 18:57; Status DC Olanzapine (ZyPREXA ZYDIS) 2.5 mg PRN Q2HR PRN PO PSYCHOSIS Last administered on 09/13/17 12:50; Start 09/03/17 at 18:45 Lorazepam (Ativan) 0.5 mg DAILY PO Last administered on 09/13/17at 07:50; Start 09/05/17 at 09:00; Stop 09/13/17 at 12:26; Status DC Lorazepam (Ativan) 0.75 mg 1600 PO Last administered on 09/12/17 17:00; Start 09/05/17 at 16:00; Stop 09/13/17 at 12:26; Status DC Quetiapine Fumarate (SEROquel) 12.5 mg 0900,1300,1700 PO Last administered on at 16:22; Start 09/06/17 at 09:00; Stop 09/06/17 at 18:23; Status DC Quetiapine Fumarate (SEROquel) 25 mg 0900,1300,1700 PO Last administered on at 16:52; Start 09/07/17 at 09:00; Stop 09/07/17 at 18:14; Status DC Vitamin D (Vitamin D3) 50,000 unit WEEKLY PO Last administered on 09/07/17at 09: 15; Start 09/07/17 at 09:00 Quetiapine Fumarate (SEROquel) 37.5 mg 0900,1300,1700 PO Last administered on at 16:54; Start 09/08/17 at 09:00; Stop 09/10/17 at 18:12; Status DC Ondansetron HCl (Zofran Odt) 4 mg PRN Q8HRS PRN PO NAUSEA/VOMITING Last administered on 09/12/17 11:26; Start 09/09/17 at 15:15 Quetiapine Fumarate (SEROquel) 50 mg 0900,1300,1700 PO Last administered on 17:12; Start 09/11/17 at 09:00 Acetaminophen (Tylenol) 650 mg PRN Q4HRS PRN PO PAIN / TEMP Last administered on 09/17/17 18:27; Start 09/11/17 at 14:15 Hyoscyamine (Anaspaz) 0.125 mg PRN Q4HRS PRN PO STOMACH CRAMPING Last administered on 09/12/17 14:13; Start 09/11/17 at 14:15 Lorazepam (Ativan) 0.5 mg HS PO Last administered on 09/12/17 19:24; Start at 21:00; Stop 09/13/17 at 12:31; Status DC Nicotine (Nicoderm Cq 14mg) 1 patch PRN DAILY PRN TD smoking cessation Last administered on 09/17/17 08:34; Start 09/13/17 at 09:00 Lorazepam (Ativan) 0.25 mg DAILY PO ; Start 09/15/17 at 09:00; Stop 09/15/17 at 09:00; Status DC Lorazepam (Ativan) 0.5 mg 1600 PO Last administered on 09/13/17at 16:34; Start 09/13/17 at 16:00; Stop 09/14/17 at 19:43; Status DC Lorazepam (Ativan) 0.25 mg HS PO ; Start 09/18/17 at 21:00; Stop 09/18/17 at 21:00 ; Status DC Oxcarbazepine (Trileptal) 600 mg DAILY PO Last administered on 09/14/17at 08:39 ; Start 09/14/17 at 09:00; Stop 09/14/17 at 19:44; Status DC Oxcarbazepine (Trileptal) 450 mg QHS PO Last administered on 09/13/17at 19:51; Start 09/13/17 at 21:00; Stop 09/14/17 at 19:44; Status DC Lorazepam (Ativan) 0.5 mg 0900,1600,2100 PO Last administered on 09/17/17at 19: 48; Start 09/14/17 at 21:00; Stop 09/18/17 at 20:59 Oxcarbazepine (Trileptal) 600 mg BID PO Last administered on 09/17/17at 19:47; Start 09/14/17 at 21:00 Lorazepam (Ativan) 0.25 mg QHS PO ; Start 09/18/17 at 21:00 Lorazepam (Ativan) 0.5 mg BID@0900,1600 PO ; Start 09/19/17 at 09:00 Fluvoxamine Maleate (Luvox) 75 mg HS PO Last administered on 09/17/17at 19:47; Start 09/17/17 at 21:00 Active Scripts Active Reported Bactrim Ds Tablet (Sulfamethoxazole/Trimethoprim) 1 Each Tablet 1 Each PO BID Pantoprazole Sodium 40 Mg Tablet.dr 40 Mg PO DAILY Trileptal (Oxcarbazepine) 300 Mg Tablet 600 Mg PO BID Zyprexa (Olanzapine) 5 Mg Tablet 5 Mg PO PRN BID PRN NICODERM CQ 14mg (Nicotine) 1 Each Patch.td24 1 Patch TD DAILY Minoxidil 2.5 Mg Tablet 10 Mg PO DAILY Cozaar (Losartan Potassium) 50 Mg Tablet 50 Mg PO DAILY Lorazepam 1 Mg Tablet 1 Mg PO HS Lorazepam 0.5 Mg Tablet 0.75 Mg PO BID94 Lamictal (Lamotrigine) 150 Mg Tablet 150 Mg PO BID Probiotic (Lactobacillus Acidophilus) 1 Each Capsule 1 Each PO TIDWMEALS Duoneb 0.5-3(2.5) Mg/3 Ml (Albuterol/Ipratropium) 3 Ml Ampul.neb 3 Ml NEB PRN Q4HRS PRN Fluticasone Propionate Nasal [place] (Fluticasone Propionate) 16 Gm [place].susp 2 [place] NS DAILY Escitalopram Oxalate 10 Mg Tablet 10 Mg PO DAILY Donepezil Hcl 5 Mg Tablet 5 Mg PO HS Dicyclomine Hcl 10 Mg Capsule 10 Mg PO BID I have reviewed the current psychotropics carefully including drug interactions. Risk benefit ratio favors no change other than as noted in my dictated progress note. 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
--- NOTE | 2017-09-18 03:07 | PN ---
DATE: 09/15/2017 This late entry 09/15/2017 covers elements not covered in my initial note 09/15/2017. SUBJECTIVE: I met with the patient in the evening. The patient slept 7 hours previous evening. Sodium 132, chloride 97, low. We will defer to Dr. Moreno/Dr. Da Silva. Resistive for dressing changes, later cooperative. She had a shower yesterday. During the day 09/15/2017, she was quite demanding, anxious, restless. Nursing staff have talked to the daughter about having arrangements for the patient's care in the home as the family decides to take her home. She refused at 1:00 p.m. Seroquel, somewhat resistive with medications. REVIEW OF SYSTEMS: Ambulation impaired, in wheelchair. No CV, , pulmonary, eye system symptoms on review. MENTAL STATUS EXAM: Oriented to herself and situation. Speech coherent, at times somewhat pressured. Abstraction fair, computation impaired, language function intact. Mood and affect remain somewhat labile, but showing some improvement. LABORATORY DATA: Reviewed. IMPRESSION: Unchanged from initial note. PLAN: Continue current psychotropics. We may check a Trileptal level as well. HODA FERRELL MD DR: ETHAN/hernesto JOB#: [id number] / [id number]
--- NOTE | 2017-09-18 04:01 | PN ---
DATE: 09/16/2017 PSYCHIATRIC PROGRESS NOTE This late entry 09/16/2017 covers elements not covered in my initial note. SUBJECTIVE: The patient slept 6-1/2 hours, refused her 4:00 p.m. Ativan. Did well in the morning. Daughter and son-in-law visited and then she was more anxious, labile, wanting to leave with them. REVIEW OF SYSTEMS: No CV, , pulmonary, eye, ENT system symptoms on review. MENTAL STATUS EXAM: Oriented to herself and situation. Speech has some latency, coherent. Abstraction fair, computation impaired, language function intact, attention span short. Mood and affect, lability is overall improved other than above. LABORATORIES: Reviewed. IMPRESSION: Unchanged from initial note. PLAN: Reduce the 9:00 p.m. Ativan from 0.5 mg down to 0.25 mg, will reduce other dosages gradually as well. Rest unchanged from initial note. MAN Lavon FERRELL MD DR: ETHAN/hernesto JOB#: [id number] / [id number]
[2017-09-18 06:24] VITALS: BP 162/74
[2017-09-18] MEDS: FLUTICASONE 50MCG/NASAL SPRAY 16GM BOTTLE. NS SCH (09:00)
[2017-09-18] MEDS: QUEtiapine 50 MG TABLET. PO SCH ×3 (09:02→17:00)
[2017-09-18] MEDS: lamoTRIgine 150 MG TABLET. PO SCH ×2 (09:02→20:14)
[2017-09-18] MEDS: PANTOPRAZOLE 40 MG TABLET. PO SCH (09:02)
[2017-09-18] MEDS: DICYCLOMINE HCL 10 MG CAPSULE PO SCH ×2 (09:02→20:14)
[2017-09-18] MEDS: LOSARTAN 50 MG TABLET. PO SCH (09:03)
[2017-09-18] MEDS: LACTOBACILLUS RHAMNOSUS GG 1 CAPSULE. PO SCH ×2 (09:03→20:13)
[2017-09-18] MEDS: LORazepam 0.5 MG TABLET PO SCH ×3 (09:05→20:16)
[2017-09-18] MEDS: MINOXIDIL 2.5 MG TABLET PO SCH (09:05)
[2017-09-18] MEDS: ACETAMINOPHEN 325 MG TABLET PO PRN ×2 (09:11→19:01)
[2017-09-18 15:53] VITALS: BP 144/59
[2017-09-18] MEDS: DONEPEZIL HCL 5 MG TABLET. PO SCH (20:14)
[2017-09-18] MEDS: OXcarbazepine 150 MG TABLET. PO SCH (20:16)
[2017-09-18] MEDS ORDERED: LORazepam 0.5 MG TABLET PO SCH (21:00)
--- NOTE | 2017-09-18 21:33 | PDOC ---
Exam Note: Alvin Note: Please also refer to the separate dictated note~for this date of service dictated separately.~Patient seen individually. Discussed the patient with Nursing staff reviewed the chart.~Reviewed interim history and current functioning. Reviewed vital signs,~Labs/ Radiology~and current medications noted below. Continue current treatment with the changes noted in the dictated addendum note Assessment: Vital Signs: Vital Signs Date Time Temp Pulse Resp B/P (MAP) Pulse Ox O2 Delivery O2 Flow Rate FiO2 09/18/17 15:53 98.8 97 24 144/59 (87) 97 09/18/17 06:24 Room Air I&O Intake and Output 09/18/17 07:00 Intake Total 720 ml Output Total 900 ml Balance -180 ml Intake Oral 720 ml Output Urine Total 900 ml # Bowel Movements 1 Current Medications: Meds: Current Medications Acetaminophen (Tylenol) 650 mg PRN Q6HRS PRN PO PAIN / TEMP Last administered on 09/11/17at 08:26; Start 08/29/17 at 19:30; Stop 09/11/17 at 14:04; Status DC Multi-Ingredient Ointment (Analgesic [place]) 1 tia PRN QID PRN TP MUSCLE PAIN Last administered on 09/14/17at 02:09; Start 08/29/17 at 19:30 Al Hydroxide/Mg Hydroxide (Mylanta Plus Xs) 15 ml PRN AFTMEALHC PRN PO DYSPEPSIA; Start 08/29/17 at 19:30 Magnesium Hydroxide (Milk Of Magnesia) 2,400 mg PRN QHS PRN PO CONSTIPATION; Start 08/29/17 at 19:30 Donepezil HCl (Aricept) 5 mg HS PO Last administered on 09/18/17at 20:14; Start 08/29/17 at 23:00 Lorazepam (Ativan) 0.75 mg [id number] PO Last administered on 09/04/17at 16:07; Start 08/30/17 at 09:00; Stop 09/04/17 at 18:34; Status DC Lorazepam (Ativan) 1 mg HS PO Last administered on 08/30/17at 20:04; Start 08/29 at 23:00; Stop 08/31/17 at 18:25; Status DC Olanzapine (ZyPREXA) 5 mg PRN BID PRN PO ANXIETY / AGITATION Last administered on 09/03/17at 13:32; Start 08/29/17 at 22:00; Stop 09/03/17 at 18:40; Status DC Dicyclomine HCl (Bentyl) 10 mg BID PO Last administered on 09/18/17at 20:14; Start 08/29/17 at 23:00 Fluticasone Propionate (Flonase) 2 spray DAILY NS Last administered on at 08:20; Start 08/30/17 at 09:00 Albuterol/ Ipratropium (Duoneb) 3 ml PRN Q4HRS PRN NEB SHORTNESS OF BREATH; Start 08/29/17 at 22:00 Lamotrigine (LaMICtal) 150 mg BID PO Last administered on 09/18/17 20:14; Start 08/29/17 at 23:00 Losartan Potassium (Cozaar) 50 mg DAILY PO Last administered on 09/18/17 09:03 ; Start 08/30/17 at 09:00 Minoxidil (Loniten) 10 mg DAILY PO Last administered on 09/18/17at 09:05; Start 08/30/17 at 09:00 Nicotine (Nicoderm Cq 14mg) 1 patch DAILY TD Last administered on 09/09/17at 08: 16; Start 08/30/17 at 09:00; Stop 09/12/17 at 09:03; Status DC Oxcarbazepine (Trileptal) 600 mg BID PO Last administered on 09/13/17at 07:48; Start 08/30/17 at 09:00; Stop 09/13/17 at 19:36; Status DC Pantoprazole Sodium (Protonix) 40 mg DAILY PO Last administered on 09/18/17at 09: 02; Start 08/30/17 at 09:00 Trimethoprim/ Sulfamethoxazole (Bactrim Ds) 1 tab BID PO Last administered on at 09:00; Start 08/29/17 at 23:00; Stop 08/31/17 at 16:19; Status DC Citalopram Hydrobromide (CeleXA) 20 mg DAILY PO Last administered on 09/01/17at 08:39; Start 08/30/17 at 09:00; Stop 09/01/17 at 18:32; Status DC Lactobacillus Rhamnosus (Culturelle) 1 cap BID PO Last administered on 20:13; Start 08/30/17 at 09:00 Amoxicillin (Amoxil) 500 mg [id number] PO Last administered on 09/06/17at 08:35; Start 08/31/17 at 21:00; Stop 09/06/17 at 09:00; Status DC Ciprofloxacin (Cipro) 250 mg BID PO Last administered on 09/06/17at 08:35; Start 08/31/17 at 21:00; Stop 09/06/17 at 09:00; Status DC Lactobacillus Rhamnosus (Culturelle) 1 cap BID PO ; Start 08/31/17 at 21:00; Stop 08/31/17 at 21:00; Status DC Lorazepam (Ativan) 0.75 mg HS PO Last administered on 09/10/17at 19:27; Start at 21:00; Stop 09/11/17 at 19:26; Status DC Lorazepam (Ativan) 1 mg QHS PO Last administered on 08/31/17at 19:42; Start at 21:00; Stop 09/01/17 at 20:30; Status DC Fluvoxamine Maleate (Luvox) 25 mg QHS PO Last administered on 09/03/17at 20:01; Start 09/01/17 at 21:00; Stop 09/03/17 at 23:00; Status DC Fluvoxamine Maleate (Luvox) 50 mg HS PO Last administered on 09/16/17at 19:47; Start 09/04/17 at 21:00; Stop 09/17/17 at 18:57; Status DC Olanzapine (ZyPREXA ZYDIS) 2.5 mg PRN Q2HR PRN PO PSYCHOSIS Last administered on 09/13/17at 12:50; Start 09/03/17 at 18:45 Lorazepam (Ativan) 0.5 mg DAILY PO Last administered on 09/13/17at 07:50; Start 09/05/17 at 09:00; Stop 09/13/17 at 12:26; Status DC Lorazepam (Ativan) 0.75 mg 1600 PO Last administered on 09/12/17at 17:00; Start 09/05/17 at 16:00; Stop 09/13/17 at 12:26; Status DC Quetiapine Fumarate (SEROquel) 12.5 mg 0900,1300,1700 PO Last administered on at 16:22; Start 09/06/17 at 09:00; Stop 09/06/17 at 18:23; Status DC Quetiapine Fumarate (SEROquel) 25 mg 0900,1300,1700 PO Last administered on at 16:52; Start 09/07/17 at 09:00; Stop 09/07/17 at 18:14; Status DC Vitamin D (Vitamin D3) 50,000 unit WEEKLY PO Last administered on 09/07/17at 09: 15; Start 09/07/17 at 09:00 Quetiapine Fumarate (SEROquel) 37.5 mg 0900,1300,1700 PO Last administered on at 16:54; Start 09/08/17 at 09:00; Stop 09/10/17 at 18:12; Status DC Ondansetron HCl (Zofran Odt) 4 mg PRN Q8HRS PRN PO NAUSEA/VOMITING Last administered on 09/12/17 11:26; Start 09/09/17 at 15:15 Quetiapine Fumarate (SEROquel) 50 mg 0900,1300,1700 PO Last administered on 09/18at 17:00; Start 09/11/17 at 09:00 Acetaminophen (Tylenol) 650 mg PRN Q4HRS PRN PO PAIN / TEMP Last administered on 09/18/17 19:01; Start 09/11/17 at 14:15 Hyoscyamine (Anaspaz) 0.125 mg PRN Q4HRS PRN PO STOMACH CRAMPING Last administered on 09/12/17at 14:13; Start 09/11/17 at 14:15 Lorazepam (Ativan) 0.5 mg HS PO Last administered on 09/12/17at 19:24; Start at 21:00; Stop 09/13/17 at 12:31; Status DC Nicotine (Nicoderm Cq 14mg) 1 patch PRN DAILY PRN TD smoking cessation Last administered on 09/17/17at 08:34; Start 09/13/17 at 09:00 Lorazepam (Ativan) 0.25 mg DAILY PO ; Start 09/15/17 at 09:00; Stop 09/15/17 at 09:00; Status DC Lorazepam (Ativan) 0.5 mg 1600 PO Last administered on 09/13/17at 16:34; Start 09/13/17 at 16:00; Stop 09/14/17 at 19:43; Status DC Lorazepam (Ativan) 0.25 mg HS PO ; Start 09/18/17 at 21:00; Stop 09/18/17 at 21:00 ; Status DC Oxcarbazepine (Trileptal) 600 mg DAILY PO Last administered on 09/14/17at 08:39 ; Start 09/14/17 at 09:00; Stop 09/14/17 at 19:44; Status DC Oxcarbazepine (Trileptal) 450 mg QHS PO Last administered on 09/13/17at 19:51; Start 09/13/17 at 21:00; Stop 09/14/17 at 19:44; Status DC Lorazepam (Ativan) 0.5 mg 0900,1600,2100 PO Last administered on 09/18/17at 17:31 ; Start 09/14/17 at 21:00; Stop 09/18/17 at 20:59; Status DC Oxcarbazepine (Trileptal) 600 mg BID PO Last administered on 09/18/17at 09:02; Start 09/14/17 at 21:00; Stop 09/18/17 at 18:51; Status DC Lorazepam (Ativan) 0.25 mg QHS PO Last administered on 09/18/17at 20:16; Start at 21:00 Lorazepam (Ativan) 0.5 mg BID@0900,1600 PO ; Start 09/19/17 at 09:00 Fluvoxamine Maleate (Luvox) 75 mg HS PO Last administered on 09/18/17at 20:13; Start 09/17/17 at 21:00 Oxcarbazepine (Trileptal) 600 mg DAILY PO ; Start 09/19/17 at 09:00 Oxcarbazepine (Trileptal) 450 mg HS PO Last administered on 09/18/17at 20:16; Start 09/18/17 at 21:00 Active Scripts Active Reported Bactrim Ds Tablet (Sulfamethoxazole/Trimethoprim) 1 Each Tablet 1 Each PO BID Pantoprazole Sodium 40 Mg Tablet.dr 40 Mg PO DAILY Trileptal (Oxcarbazepine) 300 Mg Tablet 600 Mg PO BID Zyprexa (Olanzapine) 5 Mg Tablet 5 Mg PO PRN BID PRN NICODERM CQ 14mg (Nicotine) 1 Each Patch.td24 1 Patch TD DAILY Minoxidil 2.5 Mg Tablet 10 Mg PO DAILY Cozaar (Losartan Potassium) 50 Mg Tablet 50 Mg PO DAILY Lorazepam 1 Mg Tablet 1 Mg PO HS Lorazepam 0.5 Mg Tablet 0.75 Mg PO BID94 Lamictal (Lamotrigine) 150 Mg Tablet 150 Mg PO BID Probiotic (Lactobacillus Acidophilus) 1 Each Capsule 1 Each PO TIDWMEALS Duoneb 0.5-3(2.5) Mg/3 Ml (Albuterol/Ipratropium) 3 Ml Ampul.neb 3 Ml NEB PRN Q4HRS PRN Fluticasone Propionate Nasal [place] (Fluticasone Propionate) 16 Gm [place].susp 2 [place] NS DAILY Escitalopram Oxalate 10 Mg Tablet 10 Mg PO DAILY Donepezil Hcl 5 Mg Tablet 5 Mg PO HS Dicyclomine Hcl 10 Mg Capsule 10 Mg PO BID I have reviewed the current psychotropics carefully including drug interactions. Risk benefit ratio favors no change other than as noted in my dictated progress note. 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
--- NOTE | 2017-09-19 02:54 | PN ---
DATE: 09/17/2017 PSYCHIATRIC PROGRESS NOTE This is a late entry for 09/17/2017, covers elements not covered in my initial note of 09/17/2017. SUBJECTIVE: I met with the patient in the evening. The patient slept 2-1/4 hours previous evening. Per nursing report, doing a little better. The nursing report indicated the patient is asking that she wants to go home to her parents and was somewhat delusional regarding nursing staff around lunchtime. REVIEW OF SYSTEMS: Ambulation impaired, in wheelchair. No CV, , pulmonary, eye system symptoms on review. Seemed much calmer as I met with her the evening of 09/17/2017. MENTAL STATUS EXAM: Oriented to herself and situation. Speech, less pressured. Abstraction fair, computation impaired, language function intact, attention span short. Mood and affect, lability is improved. LABORATORY DATA: Reviewed. IMPRESSION: Unchanged from initial note. PLAN: Luvox is at 50 mg at bedtime. We will increase to 75 mg at bedtime after she has been on the 50 mg for 5 days for her OCD symptoms. Continue rest unchanged including Trileptal, Lamictal, Seroquel, and the Ativan is being tapered, maintain Aricept. HODA FERRELL MD DR: ETHAN/hernesto JOB#: [id number] / [id number]
--- NOTE | 2017-09-19 05:31 | CONS ---
DATE OF CONSULTATION: 09/06/2017 NEUROLOGY CONSULTATION REFERRING PHYSICIAN: Dr. Leon. REASON FOR CONSULTATION: Possible seizure-like activity with history of seizure disorder. HISTORY OF PRESENT ILLNESS: This is a 72-year-old right-handed female who was admitted on 08/30/2017 on account of being suicidal, depressed, combative with behavior disturbances and being verbally abusive towards the staff. The patient who is a resident at [facility] stated she has had history of seizures for a while, but the last seizure was today when she had a 6-7 "petite mal seizure." Apparently, the patient described a new type of seizures. She stated she had grand mal and petite mal seizures. She explained her seizure perfectly and typically for seizure disorder. The seizure activity was petite mal was short without significant alteration of consciousness or postictal confusion or disorientation. The etiology of her initial seizure disorder is unknown at this time. Currently, she denies headaches, visual disturbances, nausea, vomiting, chest pain, shortness of breath or palpitation, dysarthria, dysphagia, numbness or vertigo. PAST MEDICAL HISTORY: Significant for hypertension, hyperlipidemia, COPD, seizure disorder of unknown etiology, urinary tract infections and pneumonia, and dementia. PAST PSYCHIATRIC HISTORY: Consistent with depression, anxiety, delusion and dementia. SOCIAL HISTORY: The patient is a resident at [facility]. She denies smoking, alcohol drinking or illicit drug use. CURRENT MEDICATIONS: Includes lorazepam, Luvox, ____, ____ , Tylenol, Seroquel, vitamin D, pantoprazole, Minoxidil, losartan, Flonase, lamotrigine, donepezil, albuterol inhaler/nebulizer. ALLERGIES: IODINE CONTRAST, IV DYE, ____ , CARBAMAZEPINE, CEPHALEXIN, ERYTHROMYCIN BASE, PHENOBARBITAL, PHENYTOIN. REVIEW OF SYSTEMS: A 10-point review of system was performed as mentioned in the history of present illness. PHYSICAL EXAMINATION: GENERAL: Well-developed, well-nourished female, not in acute distress. VITAL SIGNS: Blood pressure 138/75, respiratory rate 24, pulse is 107, temperature 98.7, oxygen saturation is 97% on room air. HEENT: Normocephalic, atraumatic, otherwise unremarkable. NECK: Supple. Negative for carotid bruit, lymphadenopathy or JVD. LUNGS: Clear to A and P, but diminished breathing sounds. CARDIOVASCULAR: Irregular rate and rhythm. Normal S1, S2. There is no S3, S4, murmur. ABDOMEN: Soft. Bowel sounds positive. EXTREMITIES: Negative for cyanosis, clubbing or pitting edema. NEUROLOGICAL: Mental Status: The patient is alert and oriented x 3. The speech is fluent. There is no language dysfunction. The patient recalls 1/3 immediately and after 1 and 3 minutes. Judgment, abstract thinking are fair. The patient denies hallucination or delusion. CRANIAL NERVES: Visual quach are full. The pupils are reactive to light and accommodation. The extraocular movements are intact. There is no nystagmus. There is no facial motor or sensory deficit. Hearing is intact bilaterally. The palate is elevated symmetrically. Sternocleidomastoid muscles are powerful bilaterally. The patient shrugs her shoulders symmetrically and protrudes her tongue in the midline without fasciculation or atrophy. 3. MOTOR: No focal muscle bulk was seen. The tone is normal. The strength is 4/5 throughout. 4. SENSORY EXAMINATION: Normal pinprick and light touch senses throughout. Deep tendon reflexes were asymmetric and hypoactive with absent Achilles responses. Gait not tested as the patient stated she is able to stand and she is confined to wheelchair. DIAGNOSTIC DATA: Chest x-ray revealed evidence of interstitial markings with a 1 cm nodule density in the left lung base. A KUB x-ray revealed no evidence of acute abdomen. LABORATORY DATA: On 09/03/2017 revealed white blood cells of 3.9 thousand, hemoglobin 11.2, hematocrit 32.7, platelet count 251,000. Chemistry revealed sodium of 137, potassium 4.6, chloride 103, CO2 27, BUN 23, creatinine 0.7, glucose 87, calcium 8.9. Liver enzymes reveal low AST. Vitamin B12 is 360 and vitamin D is 29.3. Urinalysis from 08/29/2017, revealed small urine leukocyte esterase with white blood cells of 5-10 and moderate bacteria. Urine drug screen revealed ____ level is 36, which is high, with lamotrigine level is normal at 5.4. IMPRESSION: 1. History of seizure disorder of unknown. The patient described 2 types of seizures, the Grand mal, and petite mal seizures. The patient stated she had several petite mal seizure-like activity today. 2. Multiple medical problems include dementia, chronic obstructive pulmonary disease, hypertension, hyperlipidemia, depression with some psychotic features. RECOMMENDATIONS: 1. We adjust carbamazepine dose. 2. Continue with current medical and psychiatric care. 3. We will obtain an EEG. M Akanksha OSEI MD DR: TITO/hernesto JOB#: [id number] / [id number]
[2017-09-19 06:34] VITALS: BP 165/80
[2017-09-19] MEDS: LOSARTAN 50 MG TABLET. PO SCH (08:17)
[2017-09-19] MEDS: DICYCLOMINE HCL 10 MG CAPSULE PO SCH ×2 (08:17→19:38)
[2017-09-19] MEDS: QUEtiapine 50 MG TABLET. PO SCH ×3 (08:17→17:22)
[2017-09-19] MEDS: lamoTRIgine 150 MG TABLET. PO SCH ×2 (08:17→19:37)
[2017-09-19] MEDS: PANTOPRAZOLE 40 MG TABLET. PO SCH (08:17)
[2017-09-19] MEDS: LACTOBACILLUS RHAMNOSUS GG 1 CAPSULE. PO SCH ×2 (08:17→19:37)
[2017-09-19] MEDS: ACETAMINOPHEN 325 MG TABLET PO SCH ×3 (08:20→19:37)
[2017-09-19] MEDS: MINOXIDIL 2.5 MG TABLET PO SCH (08:32)
[2017-09-19] MEDS: LORazepam 0.5 MG TABLET PO SCH ×3 (08:32→19:41)
[2017-09-19] MEDS: FLUTICASONE 50MCG/NASAL SPRAY 16GM BOTTLE. NS SCH (08:44)
[2017-09-19 16:48] VITALS: BP 101/51
[2017-09-19] MEDS: DONEPEZIL HCL 5 MG TABLET. PO SCH (19:38)
[2017-09-19] MEDS: OXcarbazepine 150 MG TABLET. PO SCH (19:38)
--- NOTE | 2017-09-19 20:53 | PDOC ---
Exam Note: Alvin Note: Please also refer to the separate dictated note~for this date of service dictated separately.~Patient seen individually. Discussed the patient with Nursing staff reviewed the chart.~Reviewed interim history and current functioning. Reviewed vital signs,~Labs/ Radiology~and current medications noted below. Continue current treatment with the changes noted in the dictated addendum note Assessment: Vital Signs: Vital Signs Date Time Temp Pulse Resp B/P (MAP) Pulse Ox O2 Delivery O2 Flow Rate FiO2 09/19/17 16:48 98.6 98 16 101/51 (68) 95 09/18/17 06:24 Room Air I&O Intake and Output 09/19/17 07:00 Intake Total 840 ml Output Total 550 ml Balance 290 ml Intake Oral 840 ml Output Urine Total 550 ml Current Medications: Meds: Current Medications Acetaminophen (Tylenol) 650 mg PRN Q6HRS PRN PO PAIN / TEMP Last administered on 09/11/17at 08:26; Start 08/29/17 at 19:30; Stop 09/11/17 at 14:04; Status DC Multi-Ingredient Ointment (Analgesic [place]) 1 tia PRN QID PRN TP MUSCLE PAIN Last administered on 09/14/17at 02:09; Start 08/29/17 at 19:30 Al Hydroxide/Mg Hydroxide (Mylanta Plus Xs) 15 ml PRN AFTMEALHC PRN PO DYSPEPSIA; Start 08/29/17 at 19:30 Magnesium Hydroxide (Milk Of Magnesia) 2,400 mg PRN QHS PRN PO CONSTIPATION; Start 08/29/17 at 19:30 Donepezil HCl (Aricept) 5 mg HS PO Last administered on 09/19/17at 19:38; Start 08/29/17 at 23:00 Lorazepam (Ativan) 0.75 mg [id number] PO Last administered on 09/04/17at 16:07; Start 08/30/17 at 09:00; Stop 09/04/17 at 18:34; Status DC Lorazepam (Ativan) 1 mg HS PO Last administered on 08/30/17at 20:04; Start 08/29 at 23:00; Stop 08/31/17 at 18:25; Status DC Olanzapine (ZyPREXA) 5 mg PRN BID PRN PO ANXIETY / AGITATION Last administered on 09/03/17 13:32; Start 08/29/17 at 22:00; Stop 09/03/17 at 18:40; Status DC Dicyclomine HCl (Bentyl) 10 mg BID PO Last administered on 09/19/17 19:38; Start 08/29/17 at 23:00 Fluticasone Propionate (Flonase) 2 spray DAILY NS Last administered on 08:20; Start 08/30/17 at 09:00 Albuterol/ Ipratropium (Duoneb) 3 ml PRN Q4HRS PRN NEB SHORTNESS OF BREATH; Start 08/29/17 at 22:00 Lamotrigine (LaMICtal) 150 mg BID PO Last administered on 09/19/17 19:37; Start 08/29/17 at 23:00 Losartan Potassium (Cozaar) 50 mg DAILY PO Last administered on 09/19/17 08:17 ; Start 08/30/17 at 09:00 Minoxidil (Loniten) 10 mg DAILY PO Last administered on 09/19/17 08:32; Start 08/30/17 at 09:00 Nicotine (Nicoderm Cq 14mg) 1 patch DAILY TD Last administered on 09/09/17 08: 16; Start 08/30/17 at 09:00; Stop 09/12/17 at 09:03; Status DC Oxcarbazepine (Trileptal) 600 mg BID PO Last administered on 09/13/17at 07:48; Start 08/30/17 at 09:00; Stop 09/13/17 at 19:36; Status DC Pantoprazole Sodium (Protonix) 40 mg DAILY PO Last administered on 09/19/17 08: 17; Start 08/30/17 at 09:00 Trimethoprim/ Sulfamethoxazole (Bactrim Ds) 1 tab BID PO Last administered on 09:00; Start 08/29/17 at 23:00; Stop 08/31/17 at 16:19; Status DC Citalopram Hydrobromide (CeleXA) 20 mg DAILY PO Last administered on 09/01/17at 08:39; Start 08/30/17 at 09:00; Stop 09/01/17 at 18:32; Status DC Lactobacillus Rhamnosus (Culturelle) 1 cap BID PO Last administered on 19:37; Start 08/30/17 at 09:00 Amoxicillin (Amoxil) 500 mg [id number] PO Last administered on 09/06/17at 08:35; Start 08/31/17 at 21:00; Stop 09/06/17 at 09:00; Status DC Ciprofloxacin (Cipro) 250 mg BID PO Last administered on 09/06/17at 08:35; Start 08/31/17 at 21:00; Stop 09/06/17 at 09:00; Status DC Lactobacillus Rhamnosus (Culturelle) 1 cap BID PO ; Start 08/31/17 at 21:00; Stop 08/31/17 at 21:00; Status DC Lorazepam (Ativan) 0.75 mg HS PO Last administered on 09/10/17 19:27; Start at 21:00; Stop 09/11/17 at 19:26; Status DC Lorazepam (Ativan) 1 mg QHS PO Last administered on 08/31/17at 19:42; Start at 21:00; Stop 09/01/17 at 20:30; Status DC Fluvoxamine Maleate (Luvox) 25 mg QHS PO Last administered on 09/03/17at 20:01; Start 09/01/17 at 21:00; Stop 09/03/17 at 23:00; Status DC Fluvoxamine Maleate (Luvox) 50 mg HS PO Last administered on 09/16/17at 19:47; Start 09/04/17 at 21:00; Stop 09/17/17 at 18:57; Status DC Olanzapine (ZyPREXA ZYDIS) 2.5 mg PRN Q2HR PRN PO PSYCHOSIS Last administered on 09/13/17at 12:50; Start 09/03/17 at 18:45 Lorazepam (Ativan) 0.5 mg DAILY PO Last administered on 09/13/17at 07:50; Start 09/05/17 at 09:00; Stop 09/13/17 at 12:26; Status DC Lorazepam (Ativan) 0.75 mg 1600 PO Last administered on 09/12/17 17:00; Start 09/05/17 at 16:00; Stop 09/13/17 at 12:26; Status DC Quetiapine Fumarate (SEROquel) 12.5 mg 0900,1300,1700 PO Last administered on 16:22; Start 09/06/17 at 09:00; Stop 09/06/17 at 18:23; Status DC Quetiapine Fumarate (SEROquel) 25 mg 0900,1300,1700 PO Last administered on at 16:52; Start 09/07/17 at 09:00; Stop 09/07/17 at 18:14; Status DC Vitamin D (Vitamin D3) 50,000 unit WEEKLY PO Last administered on 09/07/17 09: 15; Start 09/07/17 at 09:00 Quetiapine Fumarate (SEROquel) 37.5 mg 0900,1300,1700 PO Last administered on at 16:54; Start 09/08/17 at 09:00; Stop 09/10/17 at 18:12; Status DC Ondansetron HCl (Zofran Odt) 4 mg PRN Q8HRS PRN PO NAUSEA/VOMITING Last administered on 09/12/17 11:26; Start 09/09/17 at 15:15 Quetiapine Fumarate (SEROquel) 50 mg 0900,1300,1700 PO Last administered on 09/19 17:22; Start 09/11/17 at 09:00 Acetaminophen (Tylenol) 650 mg PRN Q4HRS PRN PO PAIN / TEMP Last administered on 09/18/17at 19:01; Start 09/11/17 at 14:15 Hyoscyamine (Anaspaz) 0.125 mg PRN Q4HRS PRN PO STOMACH CRAMPING Last administered on 09/12/17at 14:13; Start 09/11/17 at 14:15 Lorazepam (Ativan) 0.5 mg HS PO Last administered on 09/12/17 19:24; Start at 21:00; Stop 09/13/17 at 12:31; Status DC Nicotine (Nicoderm Cq 14mg) 1 patch PRN DAILY PRN TD smoking cessation Last administered on 09/17/17 08:34; Start 09/13/17 at 09:00 Lorazepam (Ativan) 0.25 mg DAILY PO ; Start 09/15/17 at 09:00; Stop 09/15/17 at 09:00; Status DC Lorazepam (Ativan) 0.5 mg 1600 PO Last administered on 09/13/17at 16:34; Start 09/13/17 at 16:00; Stop 09/14/17 at 19:43; Status DC Lorazepam (Ativan) 0.25 mg HS PO ; Start 09/18/17 at 21:00; Stop 09/18/17 at 21:00 ; Status DC Oxcarbazepine (Trileptal) 600 mg DAILY PO Last administered on 09/14/17at 08:39 ; Start 09/14/17 at 09:00; Stop 09/14/17 at 19:44; Status DC Oxcarbazepine (Trileptal) 450 mg QHS PO Last administered on 09/13/17 19:51; Start 09/13/17 at 21:00; Stop 09/14/17 at 19:44; Status DC Lorazepam (Ativan) 0.5 mg 0900,1600,2100 PO Last administered on 09/18/17at 17:31 ; Start 09/14/17 at 21:00; Stop 09/18/17 at 20:59; Status DC Oxcarbazepine (Trileptal) 600 mg BID PO Last administered on 09/18/17at 09:02; Start 09/14/17 at 21:00; Stop 09/18/17 at 18:51; Status DC Lorazepam (Ativan) 0.25 mg QHS PO Last administered on 09/19/17 19:41; Start at 21:00 Lorazepam (Ativan) 0.5 mg BID@0900,1600 PO Last administered on 09/19/17 17:22 ; Start 09/19/17 at 09:00 Fluvoxamine Maleate (Luvox) 75 mg HS PO Last administered on 09/19/17 19:37; Start 09/17/17 at 21:00 Oxcarbazepine (Trileptal) 600 mg DAILY PO Last administered on 09/19/17 08:20; Start 09/19/17 at 09:00 Oxcarbazepine (Trileptal) 450 mg HS PO Last administered on 5/2/18at 19:38; Start 09/18/17 at 21:00 Acetaminophen (Tylenol) 650 mg TID PO Last administered on 09/19/17at 19:37; Start 09/19/17 at 09:00 Active Scripts Active Reported Bactrim Ds Tablet (Sulfamethoxazole/Trimethoprim) 1 Each Tablet 1 Each PO BID Pantoprazole Sodium 40 Mg Tablet.dr 40 Mg PO DAILY Trileptal (Oxcarbazepine) 300 Mg Tablet 600 Mg PO BID Zyprexa (Olanzapine) 5 Mg Tablet 5 Mg PO PRN BID PRN NICODERM CQ 14mg (Nicotine) 1 Each Patch.td24 1 Patch TD DAILY Minoxidil 2.5 Mg Tablet 10 Mg PO DAILY Cozaar (Losartan Potassium) 50 Mg Tablet 50 Mg PO DAILY Lorazepam 1 Mg Tablet 1 Mg PO HS Lorazepam 0.5 Mg Tablet 0.75 Mg PO BID94 Lamictal (Lamotrigine) 150 Mg Tablet 150 Mg PO BID Probiotic (Lactobacillus Acidophilus) 1 Each Capsule 1 Each PO TIDWMEALS Duoneb 0.5-3(2.5) Mg/3 Ml (Albuterol/Ipratropium) 3 Ml Ampul.neb 3 Ml NEB PRN Q4HRS PRN Fluticasone Propionate Nasal [place] (Fluticasone Propionate) 16 Gm [place].susp 2 [place] NS DAILY Escitalopram Oxalate 10 Mg Tablet 10 Mg PO DAILY Donepezil Hcl 5 Mg Tablet 5 Mg PO HS Dicyclomine Hcl 10 Mg Capsule 10 Mg PO BID I have reviewed the current psychotropics carefully including drug interactions. Risk benefit ratio favors no change other than as noted in my dictated progress note. 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
[2017-09-19 21:30] VITALS: BP 108/70
[2017-09-19 21:41] LABS: BASO % 1 % (0-3); EOS # 0.1 x10^3/uL (0.0-0.7); EOS % 2 % (0-3); HEMATOCRIT 28.6 % (36.0-47.0); HEMOGLOBIN 9.7 g/dL (12.0-15.5); LYMPH # 1.9 x10^3/uL (1.0-4.8); LYMPH % 36 % (24-48); MEAN CORPUSCULAR HEMOGLOBIN 33 pg (25-35); MEAN CORPUSCULAR HGB CONC 34 g/dL (31-37); MEAN CORPUSCULAR VOLUME 97 fL (79-100); MONO # 0.7 x10^3/uL (0.0-1.1); MONO % 14 % (0-9); NEUT # 2.5 x10^3uL (1.8-7.7); NEUT % 48 % (31-73); PLATELET COUNT 332 x10^3/uL (140-400); RED BLOOD COUNT 2.97 x10^6/uL (3.50-5.40); RED CELL DISTRIBUTION WIDTH 16.8 % (11.5-14.5); WHITE BLOOD COUNT 5.2 x10^3/uL (4.0-11.0)
[2017-09-19 21:51] LABS: ALBUMIN 3.1 g/dL (3.4-5.0); CALCIUM 8.8 mg/dL (8.5-10.1); CREATININE 0.9 mg/dL (0.6-1.0); GFR 61.7; POTASSIUM 4.1 mmol/L (3.5-5.1); TOTAL BILIRUBIN 0.1 mg/dL (0.2-1.0); TOTAL PROTEIN 6.1 g/dL (6.4-8.2)
[2017-09-19 22:31] LABS: BGAS PH 7.45 (7.35-7.45)
--- NOTE | 2017-09-19 23:22 | PN ---
DATE: 09/19/2017 This late entry 09/18/2017 covers elements not covered in my initial note 09/18/2017. Met with the patient in the evening. Had telephone call from Gail, nurse forest logistics manager, earlier in the day that family had been calling repeatedly wondering about discharge plans. Family will join us for treatment team meeting on 09/20/2017. If they have arrangements made for her after care, we will plan to discharge. She slept 6-1/4 hours. EEG was completed compliant with her medications. She was more cooperative with the nursing cares as well including change of catheter. REVIEW OF SYSTEMS: Ambulation impaired, in wheelchair. No CV, , pulmonary, eye system symptoms on review. MENTAL STATUS EXAM: Oriented to herself and situation. Short term memory is impaired. Speech less slurred. Abstraction fair, computation impaired, language function intact. Mood and affect, lability is improved. Trileptal level is 44, therapeutic range 10-35 and we will drop the Trileptal from 600 mg b.i.d. down to 600 in the morning and 450 at night. Ativan is being tapered. Maintain the Rest unchanged. IMPRESSION: Unchanged from initial note. MAN Lavon FERRELL MD DR: ETHAN/hernesto JOB#: [id number] / [id number]
[2017-09-19 23:57] VITALS: BP 106/53
--- NOTE | 2017-09-20 00:41 | RAD ---
INDICATION: ABDOMINAL PAIN AND DISTENSION, LETHARGIC, HOLDS ABDOMEN AND MOANS. COMPARISON: None. TECHNIQUE: Axial CT images obtained through the abdomen and pelvis without contrast. Limited assessment of solid organ structures and vasculature secondary to lack of intravenous contrast. One or more of the following individualized dose reduction techniques were utilized for this examination: 1. Automated exposure control; 2. Adjustment of the mA and/or kV according to patient size; 3. Use of iterative reconstruction technique. FINDINGS: There is some regions of nodularity at the lung bases. Linear opacity left lung base could be atelectasis or scarring. Calcification within the left breast. Severe calcific atherosclerosis. No intrahepatic bile duct dilation. Poor evaluation of the pancreas without contrast. Spleen is not grossly enlarged. No definite left-sided hydronephrosis. No definite right-sided hydronephrosis. Suprapubic catheter within the urinary bladder which is decompressed. Moderate stool throughout the colon. There is some distention of the stomach. Appendix is not well seen IMPRESSION: Moderate amount of stool is seen throughout the colon. No definite hydronephrosis. Severe calcific atherosclerosis. There is some regions of nodularity at the lung bases. Could be infectious or inflammatory in nature but may be helpful to obtain a follow-up in a few months to ensure no increase to exclude neoplastic causes. The appendix is not well seen on this noncontrast examination which limits evaluation. If there is any clinical concern for an abnormality of the solid organs, vasculature or appendicitis follow-up postcontrast exam could be obtained with intravenous and oral contrast. There are some sclerotic foci in the osseous structures. Most commonly from bone [place] unless the patient has a known history of neoplasm. There is some distention of the stomach with intraluminal content. Electronically signed by: Asher Maguire MD (09/20/2017 12:38 AM) [facility]
[2017-09-20] MEDS ORDERED: POLYETHYLENE GLYCOL 3350 17 GM PACKET. PO PRN (02:15)
[2017-09-20] MEDS ORDERED: DOCUSATE SODIUM 100 MG CAPSULE PO PRN (02:15)
[2017-09-20 05:36] VITALS: BP 153/64
[2017-09-20] MEDS: DICYCLOMINE HCL 10 MG CAPSULE PO SCH ×2 (08:20→19:15)
[2017-09-20] MEDS: LOSARTAN 50 MG TABLET. PO SCH (08:21)
[2017-09-20] MEDS: LACTOBACILLUS RHAMNOSUS GG 1 CAPSULE. PO SCH ×2 (08:21→19:15)
[2017-09-20] MEDS: PANTOPRAZOLE 40 MG TABLET. PO SCH (08:21)
[2017-09-20] MEDS: QUEtiapine 50 MG TABLET. PO SCH ×3 (08:21→16:18)
[2017-09-20] MEDS: lamoTRIgine 150 MG TABLET. PO SCH ×2 (08:22→19:15)
[2017-09-20] MEDS: ACETAMINOPHEN 325 MG TABLET PO SCH ×3 (08:22→19:15)
[2017-09-20] MEDS: LORazepam 0.5 MG TABLET PO SCH ×3 (08:23→19:18)
[2017-09-20] MEDS: MINOXIDIL 2.5 MG TABLET PO SCH (08:24)
[2017-09-20] MEDS: FLUTICASONE 50MCG/NASAL SPRAY 16GM BOTTLE. NS SCH (08:24)
[2017-09-20] MEDS: NICOTINE 14MG PATCH. TD PRN (08:43)
[2017-09-20 16:24] VITALS: BP 108/60
[2017-09-20] MEDS: OXcarbazepine 150 MG TABLET. PO SCH (19:15)
[2017-09-20] MEDS: DONEPEZIL HCL 5 MG TABLET. PO SCH (19:15)
--- NOTE | 2017-09-20 21:03 | PDOC ---
Exam Note: Alvin Note: Please also refer to the separate dictated note~for this date of service dictated separately.~Patient seen individually. Discussed the patient with Nursing staff reviewed the chart.~Reviewed interim history and current functioning. Reviewed vital signs,~Labs/ Radiology~and current medications noted below. Continue current treatment with the changes noted in the dictated addendum note Assessment: Vital Signs: Vital Signs Date Time Temp Pulse Resp B/P (MAP) Pulse Ox O2 Delivery O2 Flow Rate FiO2 09/20/17 16:24 97.9 89 18 108/60 (76) 97 09/18/17 06:24 Room Air I&O Intake and Output 09/20/17 07:00 Intake Total 960 ml Output Total 1355 ml Balance -395 ml Intake Oral 960 ml Output Urine Total 1355 ml # Bowel Movements 1 Labs: Laboratory Tests Test 09/19/17 21:33 09/19/17 22:00 White Blood Count 5.2 x10^3/uL (4.0-11.0) Red Blood Count 2.97 x10^6/uL (3.50-5.40) L Hemoglobin 9.7 g/dL (12.0-15.5) L Hematocrit 28.6 % (36.0-47.0) L Mean Corpuscular Volume 97 fL (79-100) Mean Corpuscular Hemoglobin 33 pg (25-35) Mean Corpuscular Hemoglobin Concent 34 g/dL (31-37) Red Cell Distribution Width 16.8 % (11.5-14.5) H Platelet Count 332 x10^3/uL (140-400) Neutrophils (%) (Auto) 48 % (31-73) Lymphocytes (%) (Auto) 36 % (24-48) Monocytes (%) (Auto) 14 % (0-9) H Eosinophils (%) (Auto) 2 % (0-3) Basophils (%) (Auto) 1 % (0-3) Neutrophils # (Auto) 2.5 x10^3uL (1.8-7.7) Lymphocytes # (Auto) 1.9 x10^3/uL (1.0-4.8) Monocytes # (Auto) 0.7 x10^3/uL (0.0-1.1) Eosinophils # (Auto) 0.1 x10^3/uL (0.0-0.7) Basophils # (Auto) 0.0 x10^3/uL (0.0-0.2) Sodium Level 136 mmol/L (136-145) Potassium Level 4.1 mmol/L (3.5-5.1) Chloride Level 100 mmol/L (98-107) Carbon Dioxide Level 28 mmol/L (21-32) Anion Gap 8 (6-14) Blood Urea Nitrogen 36 mg/dL (7-20) H Creatinine 0.9 mg/dL (0.6-1.0) Estimated GFR (Cockcroft-Gault) 61.7 BUN/Creatinine Ratio 40 (6-20) H Glucose Level 114 mg/dL (70-99) H Lactic Acid Level 1.3 mmol/L (0.4-2.0) Calcium Level 8.8 mg/dL (8.5-10.1) Total Bilirubin 0.1 mg/dL (0.2-1.0) L Aspartate Amino Transferase (AST) 15 U/L (15-37) Alanine Aminotransferase (ALT) 20 U/L (14-59) Alkaline Phosphatase 110 U/L (46-116) Total Protein 6.1 g/dL (6.4-8.2) L Albumin 3.1 g/dL (3.4-5.0) L Albumin/Globulin Ratio 1.0 (1.0-1.7) Blood pH 7.45 (7.35-7.45) Blood Gas PCO2 43 mmHg (35-45) Blood Gas PO2 74 mmHg (71-100) Blood Gas HCO3 30 mmol/L (22-26) H Arterial Bld O2 Saturation (Calc) 95 % (92-99) FiO2 21 % Current Medications: Meds: Current Medications Acetaminophen (Tylenol) 650 mg PRN Q6HRS PRN PO PAIN / TEMP Last administered on 09/11/17at 08:26; Start 08/29/17 at 19:30; Stop 09/11/17 at 14:04; Status DC Multi-Ingredient Ointment (Analgesic [place]) 1 tia PRN QID PRN TP MUSCLE PAIN Last administered on 09/14/17at 02:09; Start 08/29/17 at 19:30 Al Hydroxide/Mg Hydroxide (Mylanta Plus Xs) 15 ml PRN AFTMEALHC PRN PO DYSPEPSIA; Start 08/29/17 at 19:30 Magnesium Hydroxide (Milk Of Magnesia) 2,400 mg PRN QHS PRN PO CONSTIPATION; Start 08/29/17 at 19:30 Donepezil HCl (Aricept) 5 mg HS PO Last administered on 09/20/17 19:15; Start 08/29/17 at 23:00 Lorazepam (Ativan) 0.75 mg [id number] PO Last administered on 09/04/17 16:07; Start 08/30/17 at 09:00; Stop 09/04/17 at 18:34; Status DC Lorazepam (Ativan) 1 mg HS PO Last administered on 08/30/17 20:04; Start 08/29 at 23:00; Stop 08/31/17 at 18:25; Status DC Olanzapine (ZyPREXA) 5 mg PRN BID PRN PO ANXIETY / AGITATION Last administered on 09/03/17 13:32; Start 08/29/17 at 22:00; Stop 09/03/17 at 18:40; Status DC Dicyclomine HCl (Bentyl) 10 mg BID PO Last administered on 09/20/17 19:15; Start 08/29/17 at 23:00 Fluticasone Propionate (Flonase) 2 spray DAILY NS Last administered on 08:24; Start 08/30/17 at 09:00 Albuterol/ Ipratropium (Duoneb) 3 ml PRN Q4HRS PRN NEB SHORTNESS OF BREATH; Start 08/29/17 at 22:00 Lamotrigine (LaMICtal) 150 mg BID PO Last administered on 09/20/17 19:15; Start 08/29/17 at 23:00 Losartan Potassium (Cozaar) 50 mg DAILY PO Last administered on 09/20/17 08:21 ; Start 08/30/17 at 09:00 Minoxidil (Loniten) 10 mg DAILY PO Last administered on 09/20/17 08:24; Start 08/30/17 at 09:00 Nicotine (Nicoderm Cq 14mg) 1 patch DAILY TD Last administered on 09/09/17 08: 16; Start 08/30/17 at 09:00; Stop 09/12/17 at 09:03; Status DC Oxcarbazepine (Trileptal) 600 mg BID PO Last administered on 09/13/17at 07:48; Start 08/30/17 at 09:00; Stop 09/13/17 at 19:36; Status DC Pantoprazole Sodium (Protonix) 40 mg DAILY PO Last administered on 09/20/17 08: 21; Start 08/30/17 at 09:00 Trimethoprim/ Sulfamethoxazole (Bactrim Ds) 1 tab BID PO Last administered on at 09:00; Start 08/29/17 at 23:00; Stop 08/31/17 at 16:19; Status DC Citalopram Hydrobromide (CeleXA) 20 mg DAILY PO Last administered on 09/01/17at 08:39; Start 08/30/17 at 09:00; Stop 09/01/17 at 18:32; Status DC Lactobacillus Rhamnosus (Culturelle) 1 cap BID PO Last administered on 19:15; Start 08/30/17 at 09:00 Amoxicillin (Amoxil) 500 mg [id number] PO Last administered on 09/06/17at 08:35; Start 08/31/17 at 21:00; Stop 09/06/17 at 09:00; Status DC Ciprofloxacin (Cipro) 250 mg BID PO Last administered on 09/06/17 08:35; Start 08/31/17 at 21:00; Stop 09/06/17 at 09:00; Status DC Lactobacillus Rhamnosus (Culturelle) 1 cap BID PO ; Start 08/31/17 at 21:00; Stop 08/31/17 at 21:00; Status DC Lorazepam (Ativan) 0.75 mg HS PO Last administered on 09/10/17at 19:27; Start at 21:00; Stop 09/11/17 at 19:26; Status DC Lorazepam (Ativan) 1 mg QHS PO Last administered on 08/31/17at 19:42; Start at 21:00; Stop 09/01/17 at 20:30; Status DC Fluvoxamine Maleate (Luvox) 25 mg QHS PO Last administered on 09/03/17at 20:01; Start 09/01/17 at 21:00; Stop 09/03/17 at 23:00; Status DC Fluvoxamine Maleate (Luvox) 50 mg HS PO Last administered on 09/16/17 19:47; Start 09/04/17 at 21:00; Stop 09/17/17 at 18:57; Status DC Olanzapine (ZyPREXA ZYDIS) 2.5 mg PRN Q2HR PRN PO PSYCHOSIS Last administered on 09/13/17 12:50; Start 09/03/17 at 18:45 Lorazepam (Ativan) 0.5 mg DAILY PO Last administered on 09/13/17 07:50; Start 09/05/17 at 09:00; Stop 09/13/17 at 12:26; Status DC Lorazepam (Ativan) 0.75 mg 1600 PO Last administered on 09/12/17 17:00; Start 09/05/17 at 16:00; Stop 09/13/17 at 12:26; Status DC Quetiapine Fumarate (SEROquel) 12.5 mg 0900,1300,1700 PO Last administered on at 16:22; Start 09/06/17 at 09:00; Stop 09/06/17 at 18:23; Status DC Quetiapine Fumarate (SEROquel) 25 mg 0900,1300,1700 PO Last administered on at 16:52; Start 09/07/17 at 09:00; Stop 09/07/17 at 18:14; Status DC Vitamin D (Vitamin D3) 50,000 unit WEEKLY PO Last administered on 09/07/17 09: 15; Start 09/07/17 at 09:00 Quetiapine Fumarate (SEROquel) 37.5 mg 0900,1300,1700 PO Last administered on at 16:54; Start 09/08/17 at 09:00; Stop 09/10/17 at 18:12; Status DC Ondansetron HCl (Zofran Odt) 4 mg PRN Q8HRS PRN PO NAUSEA/VOMITING Last administered on 09/12/17 11:26; Start 09/09/17 at 15:15 Quetiapine Fumarate (SEROquel) 50 mg 0900,1300,1700 PO Last administered on 09/20 16:18; Start 09/11/17 at 09:00 Acetaminophen (Tylenol) 650 mg PRN Q4HRS PRN PO PAIN / TEMP Last administered on 09/18/17 19:01; Start 09/11/17 at 14:15 Hyoscyamine (Anaspaz) 0.125 mg PRN Q4HRS PRN PO STOMACH CRAMPING Last administered on 09/12/17 14:13; Start 09/11/17 at 14:15 Lorazepam (Ativan) 0.5 mg HS PO Last administered on 09/12/17at 19:24; Start at 21:00; Stop 09/13/17 at 12:31; Status DC Nicotine (Nicoderm Cq 14mg) 1 patch PRN DAILY PRN TD smoking cessation Last administered on 09/20/17 08:43; Start 09/13/17 at 09:00 Lorazepam (Ativan) 0.25 mg DAILY PO ; Start 09/15/17 at 09:00; Stop 09/15/17 at 09:00; Status DC Lorazepam (Ativan) 0.5 mg 1600 PO Last administered on 09/13/17at 16:34; Start 09/13/17 at 16:00; Stop 09/14/17 at 19:43; Status DC Lorazepam (Ativan) 0.25 mg HS PO ; Start 09/18/17 at 21:00; Stop 09/18/17 at 21:00 ; Status DC Oxcarbazepine (Trileptal) 600 mg DAILY PO Last administered on 09/14/17at 08:39 ; Start 09/14/17 at 09:00; Stop 09/14/17 at 19:44; Status DC Oxcarbazepine (Trileptal) 450 mg QHS PO Last administered on 09/13/17at 19:51; Start 09/13/17 at 21:00; Stop 09/14/17 at 19:44; Status DC Lorazepam (Ativan) 0.5 mg 0900,1600,2100 PO Last administered on 09/18/17at 17:31 ; Start 09/14/17 at 21:00; Stop 09/18/17 at 20:59; Status DC Oxcarbazepine (Trileptal) 600 mg BID PO Last administered on 09/18/17at 09:02; Start 09/14/17 at 21:00; Stop 09/18/17 at 18:51; Status DC Lorazepam (Ativan) 0.25 mg QHS PO Last administered on 09/20/17 19:18; Start at 21:00 Lorazepam (Ativan) 0.5 mg BID@0900,1600 PO Last administered on 09/20/17 16:18 ; Start 09/19/17 at 09:00 Fluvoxamine Maleate (Luvox) 75 mg HS PO Last administered on 09/20/17 19:15; Start 09/17/17 at 21:00 Oxcarbazepine (Trileptal) 600 mg DAILY PO Last administered on 09/20/17at 08:21; Start 09/19/17 at 09:00 Oxcarbazepine (Trileptal) 450 mg HS PO Last administered on 09/20/17 19:15; Start 09/18/17 at 21:00 Acetaminophen (Tylenol) 650 mg TID PO Last administered on 09/20/17at 19:15; Start 09/19/17 at 09:00 Polyethylene Glycol (miraLAX) 17 gm PRN DAILY PRN PO CONSTIPATION; Start at 02:15 Docusate Sodium (Colace) 100 mg PRN DAILY PRN PO CONSTIPATION; Start 09/20/17 at 02:15 Active Scripts Active Reported Bactrim Ds Tablet (Sulfamethoxazole/Trimethoprim) 1 Each Tablet 1 Each PO BID Pantoprazole Sodium 40 Mg Tablet.dr 40 Mg PO DAILY Trileptal (Oxcarbazepine) 300 Mg Tablet 600 Mg PO BID Zyprexa (Olanzapine) 5 Mg Tablet 5 Mg PO PRN BID PRN NICODERM CQ 14mg (Nicotine) 1 Each Patch.td24 1 Patch TD DAILY Minoxidil 2.5 Mg Tablet 10 Mg PO DAILY Cozaar (Losartan Potassium) 50 Mg Tablet 50 Mg PO DAILY Lorazepam 1 Mg Tablet 1 Mg PO HS Lorazepam 0.5 Mg Tablet 0.75 Mg PO BID94 Lamictal (Lamotrigine) 150 Mg Tablet 150 Mg PO BID Probiotic (Lactobacillus Acidophilus) 1 Each Capsule 1 Each PO TIDWMEALS Duoneb 0.5-3(2.5) Mg/3 Ml (Albuterol/Ipratropium) 3 Ml Ampul.neb 3 Ml NEB PRN Q4HRS PRN Fluticasone Propionate Nasal [place] (Fluticasone Propionate) 16 Gm [place].susp 2 [place] NS DAILY Escitalopram Oxalate 10 Mg Tablet 10 Mg PO DAILY Donepezil Hcl 5 Mg Tablet 5 Mg PO HS Dicyclomine Hcl 10 Mg Capsule 10 Mg PO BID I have reviewed the current psychotropics carefully including drug interactions. Risk benefit ratio favors no change other than as noted in my dictated progress note. Diagnosis: Problems: (1) Anxiety disorder (2) Impulse control disorder (3) Psychotic depression (4) Major depressive disorder, recurrent episode (5) Dementia, vascular, with depression (6) Dementia, vascular, with delusions (7) Dementia in Alzheimer's disease with depression (8) Dementia in Alzheimer's disease with delusions HODA FERRELL MD September 20, 2017 21:03
[2017-09-21 06:12] VITALS: BP 141/72
[2017-09-21] MEDS: ACETAMINOPHEN 325 MG TABLET PO PRN (06:25)
[2017-09-21] MEDS: QUEtiapine 50 MG TABLET. PO SCH ×3 (07:54→16:35)
[2017-09-21] MEDS: ACETAMINOPHEN 325 MG TABLET PO SCH ×4 (07:54→20:44)
[2017-09-21] MEDS: lamoTRIgine 150 MG TABLET. PO SCH ×2 (07:54→19:19)
[2017-09-21] MEDS: LACTOBACILLUS RHAMNOSUS GG 1 CAPSULE. PO SCH ×2 (07:54→19:19)
[2017-09-21] MEDS: PANTOPRAZOLE 40 MG TABLET. PO SCH (07:55)
[2017-09-21] MEDS: LOSARTAN 50 MG TABLET. PO SCH (07:55)
[2017-09-21] MEDS: CHOLECALCIFEROL (VITAMIN D3) 50,000 UNIT CAPSULE PO SCH (07:57)
[2017-09-21] MEDS: DICYCLOMINE HCL 10 MG CAPSULE PO SCH ×2 (07:57→19:19)
[2017-09-21] MEDS: LORazepam 0.5 MG TABLET PO SCH ×3 (07:57→19:23)
[2017-09-21] MEDS: FLUTICASONE 50MCG/NASAL SPRAY 16GM BOTTLE. NS SCH (07:58)
[2017-09-21] MEDS: MINOXIDIL 2.5 MG TABLET PO SCH (08:00)
[2017-09-21 15:56] VITALS: BP 132/59
[2017-09-21] MEDS ORDERED: BENZOCAINE/MENTHOL LOZNGE 18'S BOX. PO PRN (18:45)
[2017-09-21] MEDS: DONEPEZIL HCL 5 MG TABLET. PO SCH (19:18)
[2017-09-21] MEDS: OXcarbazepine 150 MG TABLET. PO SCH (19:19)
--- NOTE | 2017-09-21 21:05 | PDOC ---
Exam Note: Alvin Note: Please also refer to the separate dictated note~for this date of service dictated separately.~Patient seen individually. Discussed the patient with Nursing staff reviewed the chart.~Reviewed interim history and current functioning. Reviewed vital signs,~Labs/ Radiology~and current medications noted below. Continue current treatment with the changes noted in the dictated addendum note Assessment: Vital Signs: Vital Signs Date Time Temp Pulse Resp B/P (MAP) Pulse Ox O2 Delivery O2 Flow Rate FiO2 09/21/17 15:56 98.2 84 16 132/59 (83) 96 09/18/17 06:24 Room Air I&O Intake and Output 09/21/17 07:00 Intake Total 600 ml Output Total 420 ml Balance 180 ml Intake Oral 600 ml Output Urine Total 420 ml # Bowel Movements 2 Current Medications: Meds: Current Medications Acetaminophen (Tylenol) 650 mg PRN Q6HRS PRN PO PAIN / TEMP Last administered on 09/11/17at 08:26; Start 08/29/17 at 19:30; Stop 09/11/17 at 14:04; Status DC Multi-Ingredient Ointment (Analgesic [place]) 1 tia PRN QID PRN TP MUSCLE PAIN Last administered on 09/14/17at 02:09; Start 08/29/17 at 19:30 Al Hydroxide/Mg Hydroxide (Mylanta Plus Xs) 15 ml PRN AFTMEALHC PRN PO DYSPEPSIA; Start 08/29/17 at 19:30 Magnesium Hydroxide (Milk Of Magnesia) 2,400 mg PRN QHS PRN PO CONSTIPATION; Start 08/29/17 at 19:30 Donepezil HCl (Aricept) 5 mg HS PO Last administered on 09/21/17at 19:18; Start 08/29/17 at 23:00 Lorazepam (Ativan) 0.75 mg [id number] PO Last administered on 09/04/17at 16:07; Start 08/30/17 at 09:00; Stop 09/04/17 at 18:34; Status DC Lorazepam (Ativan) 1 mg HS PO Last administered on 08/30/17at 20:04; Start 08/29 at 23:00; Stop 08/31/17 at 18:25; Status DC Olanzapine (ZyPREXA) 5 mg PRN BID PRN PO ANXIETY / AGITATION Last administered on 09/03/17 13:32; Start 08/29/17 at 22:00; Stop 09/03/17 at 18:40; Status DC Dicyclomine HCl (Bentyl) 10 mg BID PO Last administered on 09/21/17 19:19; Start 08/29/17 at 23:00 Fluticasone Propionate (Flonase) 2 spray DAILY NS Last administered on 07:58; Start 08/30/17 at 09:00 Albuterol/ Ipratropium (Duoneb) 3 ml PRN Q4HRS PRN NEB SHORTNESS OF BREATH; Start 08/29/17 at 22:00 Lamotrigine (LaMICtal) 150 mg BID PO Last administered on 09/21/17 19:19; Start 08/29/17 at 23:00 Losartan Potassium (Cozaar) 50 mg DAILY PO Last administered on 09/21/17 07:55 ; Start 08/30/17 at 09:00 Minoxidil (Loniten) 10 mg DAILY PO Last administered on 09/21/17 08:00; Start 08/30/17 at 09:00 Nicotine (Nicoderm Cq 14mg) 1 patch DAILY TD Last administered on 09/09/17 08: 16; Start 08/30/17 at 09:00; Stop 09/12/17 at 09:03; Status DC Oxcarbazepine (Trileptal) 600 mg BID PO Last administered on 09/13/17at 07:48; Start 08/30/17 at 09:00; Stop 09/13/17 at 19:36; Status DC Pantoprazole Sodium (Protonix) 40 mg DAILY PO Last administered on 09/21/17 07: 55; Start 08/30/17 at 09:00 Trimethoprim/ Sulfamethoxazole (Bactrim Ds) 1 tab BID PO Last administered on at 09:00; Start 08/29/17 at 23:00; Stop 08/31/17 at 16:19; Status DC Citalopram Hydrobromide (CeleXA) 20 mg DAILY PO Last administered on 09/01/17at 08:39; Start 08/30/17 at 09:00; Stop 09/01/17 at 18:32; Status DC Lactobacillus Rhamnosus (Culturelle) 1 cap BID PO Last administered on 19:19; Start 08/30/17 at 09:00 Amoxicillin (Amoxil) 500 mg [id number] PO Last administered on 09/06/17 08:35; Start 08/31/17 at 21:00; Stop 09/06/17 at 09:00; Status DC Ciprofloxacin (Cipro) 250 mg BID PO Last administered on 09/06/17 08:35; Start 08/31/17 at 21:00; Stop 09/06/17 at 09:00; Status DC Lactobacillus Rhamnosus (Culturelle) 1 cap BID PO ; Start 08/31/17 at 21:00; Stop 08/31/17 at 21:00; Status DC Lorazepam (Ativan) 0.75 mg HS PO Last administered on 09/10/17at 19:27; Start at 21:00; Stop 09/11/17 at 19:26; Status DC Lorazepam (Ativan) 1 mg QHS PO Last administered on 08/31/17at 19:42; Start at 21:00; Stop 09/01/17 at 20:30; Status DC Fluvoxamine Maleate (Luvox) 25 mg QHS PO Last administered on 09/03/17at 20:01; Start 09/01/17 at 21:00; Stop 09/03/17 at 23:00; Status DC Fluvoxamine Maleate (Luvox) 50 mg HS PO Last administered on 09/16/17at 19:47; Start 09/04/17 at 21:00; Stop 09/17/17 at 18:57; Status DC Olanzapine (ZyPREXA ZYDIS) 2.5 mg PRN Q2HR PRN PO PSYCHOSIS Last administered on 09/13/17 12:50; Start 09/03/17 at 18:45 Lorazepam (Ativan) 0.5 mg DAILY PO Last administered on 09/13/17at 07:50; Start 09/05/17 at 09:00; Stop 09/13/17 at 12:26; Status DC Lorazepam (Ativan) 0.75 mg 1600 PO Last administered on 09/12/17 17:00; Start 09/05/17 at 16:00; Stop 09/13/17 at 12:26; Status DC Quetiapine Fumarate (SEROquel) 12.5 mg 0900,1300,1700 PO Last administered on 16:22; Start 09/06/17 at 09:00; Stop 09/06/17 at 18:23; Status DC Quetiapine Fumarate (SEROquel) 25 mg 0900,1300,1700 PO Last administered on 16:52; Start 09/07/17 at 09:00; Stop 09/07/17 at 18:14; Status DC Vitamin D (Vitamin D3) 50,000 unit WEEKLY PO Last administered on 09/21/17 07: 57; Start 09/07/17 at 09:00 Quetiapine Fumarate (SEROquel) 37.5 mg 0900,1300,1700 PO Last administered on 16:54; Start 09/08/17 at 09:00; Stop 09/10/17 at 18:12; Status DC Ondansetron HCl (Zofran Odt) 4 mg PRN Q8HRS PRN PO NAUSEA/VOMITING Last administered on 09/12/17 11:26; Start 09/09/17 at 15:15 Quetiapine Fumarate (SEROquel) 50 mg 0900,1300,1700 PO Last administered on 09/21 16:35; Start 09/11/17 at 09:00 Acetaminophen (Tylenol) 650 mg PRN Q4HRS PRN PO PAIN / TEMP Last administered on 09/21/17 06:25; Start 09/11/17 at 14:15 Hyoscyamine (Anaspaz) 0.125 mg PRN Q4HRS PRN PO STOMACH CRAMPING Last administered on 09/12/17 14:13; Start 09/11/17 at 14:15 Lorazepam (Ativan) 0.5 mg HS PO Last administered on 09/12/17 19:24; Start at 21:00; Stop 09/13/17 at 12:31; Status DC Nicotine (Nicoderm Cq 14mg) 1 patch PRN DAILY PRN TD smoking cessation Last administered on 09/20/17 08:43; Start 09/13/17 at 09:00 Lorazepam (Ativan) 0.25 mg DAILY PO ; Start 09/15/17 at 09:00; Stop 09/15/17 at 09:00; Status DC Lorazepam (Ativan) 0.5 mg 1600 PO Last administered on 09/13/17at 16:34; Start 09/13/17 at 16:00; Stop 09/14/17 at 19:43; Status DC Lorazepam (Ativan) 0.25 mg HS PO ; Start 09/18/17 at 21:00; Stop 09/18/17 at 21:00 ; Status DC Oxcarbazepine (Trileptal) 600 mg DAILY PO Last administered on 09/14/17at 08:39 ; Start 09/14/17 at 09:00; Stop 09/14/17 at 19:44; Status DC Oxcarbazepine (Trileptal) 450 mg QHS PO Last administered on 09/13/17 19:51; Start 09/13/17 at 21:00; Stop 09/14/17 at 19:44; Status DC Lorazepam (Ativan) 0.5 mg 0900,1600,2100 PO Last administered on 09/18/17at 17:31 ; Start 09/14/17 at 21:00; Stop 09/18/17 at 20:59; Status DC Oxcarbazepine (Trileptal) 600 mg BID PO Last administered on 09/18/17 09:02; Start 09/14/17 at 21:00; Stop 09/18/17 at 18:51; Status DC Lorazepam (Ativan) 0.25 mg QHS PO Last administered on 09/21/17 19:23; Start at 21:00 Lorazepam (Ativan) 0.5 mg BID@0900,1600 PO Last administered on 09/21/17 16:35 ; Start 09/19/17 at 09:00 Fluvoxamine Maleate (Luvox) 75 mg HS PO Last administered on 09/21/17 19:19; Start 09/17/17 at 21:00 Oxcarbazepine (Trileptal) 600 mg DAILY PO Last administered on 09/21/17 07:55; Start 09/19/17 at 09:00 Oxcarbazepine (Trileptal) 450 mg HS PO Last administered on 5/4/18at 19:19; Start 09/18/17 at 21:00 Acetaminophen (Tylenol) 650 mg TID PO Last administered on 09/21/17at 20:44; Start 09/19/17 at 09:00 Polyethylene Glycol (miraLAX) 17 gm PRN DAILY PRN PO CONSTIPATION; Start at 02:15 Docusate Sodium (Colace) 100 mg PRN DAILY PRN PO CONSTIPATION; Start 09/20/17 at 02:15 Throat Lozenges (Cepacol Sore Throat Lozenge) 1 vern PRN Q2HR PRN PO SORE THROAT ; Start 09/21/17 at 18:45 Active Scripts Active Reported Bactrim Ds Tablet (Sulfamethoxazole/Trimethoprim) 1 Each Tablet 1 Each PO BID Pantoprazole Sodium 40 Mg Tablet.dr 40 Mg PO DAILY Trileptal (Oxcarbazepine) 300 Mg Tablet 600 Mg PO BID Zyprexa (Olanzapine) 5 Mg Tablet 5 Mg PO PRN BID PRN NICODERM CQ 14mg (Nicotine) 1 Each Patch.td24 1 Patch TD DAILY Minoxidil 2.5 Mg Tablet 10 Mg PO DAILY Cozaar (Losartan Potassium) 50 Mg Tablet 50 Mg PO DAILY Lorazepam 1 Mg Tablet 1 Mg PO HS Lorazepam 0.5 Mg Tablet 0.75 Mg PO BID94 Lamictal (Lamotrigine) 150 Mg Tablet 150 Mg PO BID Probiotic (Lactobacillus Acidophilus) 1 Each Capsule 1 Each PO TIDWMEALS Duoneb 0.5-3(2.5) Mg/3 Ml (Albuterol/Ipratropium) 3 Ml Ampul.neb 3 Ml NEB PRN Q4HRS PRN Fluticasone Propionate Nasal [place] (Fluticasone Propionate) 16 Gm [place].susp 2 [place] NS DAILY Escitalopram Oxalate 10 Mg Tablet 10 Mg PO DAILY Donepezil Hcl 5 Mg Tablet 5 Mg PO HS Dicyclomine Hcl 10 Mg Capsule 10 Mg PO BID I have reviewed the current psychotropics carefully including drug interactions. Risk benefit ratio favors no change other than as noted in my dictated progress note. 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
[2017-09-21] MEDS ORDERED: OXCA300T PO (22:37)
[2017-09-21] MEDS ORDERED: ACET325T9 PO ×2 (22:46→22:47)
[2017-09-21] MEDS ORDERED: CHOL500021 PO (22:48)
[2017-09-21] MEDS ORDERED: DOCU100C28 PO (22:49)
[2017-09-21] MEDS ORDERED: HYOS0.12 PO (22:51)
[2017-09-21] MEDS ORDERED: MAG30ORA2 PO (22:53)
[2017-09-21] MEDS ORDERED: MAGN2400 PO (22:54)
[2017-09-21] MEDS ORDERED: METH29OI TP (22:54)
[2017-09-21] MEDS ORDERED: ONDA4TAB12 PO (22:56)
[2017-09-21] MEDS ORDERED: POLY17PO5 PO (22:57)
[2017-09-21] MEDS ORDERED: QUET50TA5 PO (23:00)
[2017-09-21] MEDS ORDERED: FLUV50TA2 PO (23:03)
--- NOTE | 2017-09-22 04:46 | PN ---
DATE: 09/19/2017 PSYCHIATRIC PROGRESS NOTE This late entry 09/19/2017 covers elements not covered in my initial note 09/19/2017. SUBJECTIVE: I met with the patient in the evening of 09/19/2017. Overall, the patient is less anxious, less labile. She gets scheduled Tylenol for her pain. She has been irritable at times, but redirects better. REVIEW OF SYSTEMS: Ambulation impaired. No CV, , pulmonary, eye system symptoms on review. She is in a wheelchair. MENTAL STATUS EXAM: Oriented to herself and situation. Speech is coherent, less pressured, less irritable, less labile. Abstraction fair, computation impaired, language function intact. Mood and affect showing improvement. LABORATORIES: Reviewed. IMPRESSION: Unchanged from initial note. PLAN: Continue psychotropics mentioned in my initial note. Trileptal dosage was reduced since the blood level was slightly above the upper limit of therapeutic at 44 with a therapeutic limit of 35. HODA FERRELL MD DR: ETHAN/hernesto JOB#: [id number] / [id number]
[2017-09-22] MEDS: QUEtiapine 50 MG TABLET. PO SCH (07:52)
[2017-09-22] MEDS: DICYCLOMINE HCL 10 MG CAPSULE PO SCH (07:52)
[2017-09-22] MEDS: ACETAMINOPHEN 325 MG TABLET PO SCH (07:53)
[2017-09-22] MEDS: PANTOPRAZOLE 40 MG TABLET. PO SCH (07:53)
[2017-09-22] MEDS: lamoTRIgine 150 MG TABLET. PO SCH (07:53)
[2017-09-22] MEDS: LOSARTAN 50 MG TABLET. PO SCH (07:53)
[2017-09-22] MEDS: LACTOBACILLUS RHAMNOSUS GG 1 CAPSULE. PO SCH (07:53)
[2017-09-22] MEDS: FLUTICASONE 50MCG/NASAL SPRAY 16GM BOTTLE. NS SCH (07:56)
[2017-09-22 07:57] VITALS: BP 132/59
[2017-09-22] MEDS: MINOXIDIL 2.5 MG TABLET PO SCH (07:57)
[2017-09-22] MEDS: LORazepam 0.5 MG TABLET PO SCH (07:58)
--- NOTE | 2017-09-22 17:04 | PN ---
DATE: 09/20/2017 This is a late entry 09/20, covers elements not covered in my initial note of 09/20. SUBJECTIVE: I met with the patient in the evening and staffed at treatment team meeting with the entire team in the morning and the patient's daughter Kamilah, who is her DPOA, attended the morning conference. Discussed the patient's diagnosis, progress, current medications at some length and discussed the change in the Trileptal dosage, which was adjusted post-Trileptal level being somewhat elevated and answered the daughter's questions including the Seroquel, which we discussed could be tapered when she had been stable back at the facility for some time. The day before, the patient had x-ray of the abdomen which showed large amount of bowel movement accumulation and she did have a BM, was better after that. Appetite 90%. Sleeping 6-7 hours. Overall, mood lability is much better. His meds have not needed to be syringed. REVIEW OF SYSTEMS: Ambulation impaired, in wheelchair. No CV, , pulmonary, eye system symptoms on review. MENTAL STATUS EXAM: Oriented to herself, situation. Speech coherent, abstraction fair, computation impaired, language function intact. Mood and affect showing improvement. LABORATORY DATA: Reviewed. IMPRESSION: Unchanged from initial note. PLAN: Continue current psychotropics. MAN Lavon FERRELL MD DR: ETHAN/hernesto JOB#: [id number] / [id number]
--- NOTE | 2017-09-23 09:34 | PN ---
DATE: 09/22/2017 SUBJECTIVE: The patient has not had any recurrent seizure; however, she has been very combative this morning. She became more agitated, restless and refused taking her medications; however, she denies headaches or any other new medical or neurological complaints. The patient refused the EEG, which I ordered yesterday. OBJECTIVE: GENERAL: Well-developed, well-nourished female, not in acute distress. VITAL SIGNS: Afebrile, blood pressure 155/66, respiratory 20, pulse is 59, temperature 98.5, oxygen saturation 95% on room air. HEENT: Normocephalic, atraumatic. NECK: Supple, negative for carotid bruit, lymphadenopathy or thyromegaly. LUNGS: Clear to A and P. CARDIOVASCULAR: Regular rate and rhythm, normal S1, S2. ABDOMEN: Soft. EXTREMITIES: Negative for cyanosis, clubbing or pitting edema. NEUROLOGIC: The patient is alert and oriented x 3. Speech is fluent. There is no language dysfunction. Further evaluation is limited because the patient is restless and somewhat agitated. Cranial nerves are grossly intact. No focal motor or sensory deficit. Sensory examination: Normal to pinprick and light touch senses throughout. Deep tendon reflexes were symmetric and hypoactive with absent acute responses. Gait: The patient refused to stand up and walk. She confined to a wheelchair. IMPRESSION: 1. History of seizure disorder, etiology uncertain; however, the patient describes 2 kinds of seizure, petit mal and grand mal. The patient tends to have more petit mal than grand mal as observed by nursing staff. 2. Multiple medical problems include depressions, anxiety, hyperlipidemia, hypertension, chronic obstructive pulmonary disease. 3. Multiple psychiatric problems include major depression and possible early dementia. RECOMMENDATIONS: We will try to obtain an EEG. Continue with current medical and psychiatric care. Satinder OSEI MD DR: TITO/hernesto JOB#: [id number] / [id number]
--- NOTE | 2017-09-25 01:09 | DS ---
DATE OF DISCHARGE: 09/22/2017 DISCHARGE SUMMARY/PSYCHIATRIC PROGRESS NOTE This is a late entry for date of service 09/22/2017 and covers the elements not covered in my initial note of 09/22/2017. REASON FOR ADMISSION: Please refer to the admission history for details. Briefly, the patient is a 72-year-old female referred to us from [facility] where [facility] [place] on account of increasing combative behaviors, hitting and scratching. She was verbally abusive towards staff, banged their head on gibson and made suicidal statements. She had suicidal ideation, was very needy, disruptive and attention seeking, had failed outpatient psychiatric interventions resulting in this referral. SIGNIFICANT FINDINGS AND CLINICAL COURSE: Following admission, the patient was seen daily individually by myself, followed medically per Dr. Da Silva/Dr. Moreno. The patient is noted to be confused, forgetful, quite depressed, labile, angry, irritable, extremely abrasive, disruptive. Adjustments were made in her psychotropics and she seemed to respond to a combination of Aricept 5 mg a day, Ativan ____ was being tapered gradually since she was on a fairly high dosage at admission. She is also on Zyprexa p.r.n., Seroquel was adjusted to 50 mg 3 times a day and I discussed with her daughter, Khalida, prior to discharge that once the patient is stable back at her next facility or outpatient provider may consider tapering off the Seroquel. She is also on Trileptal 600 mg in a.m. and 450 mg at bedtime and this was reduced from 600 mg twice a day since the blood level was elevated beyond the upper limit of the therapeutic level on the 600 b.i.d. Lamictal was 150 mg b.i.d. The patient was also quite obsessive, anxious. Luvox was added and was at 75 mg at bedtime prior to discharge. Gradually, mood appeared to improve. No suicidal or homicidal ideation prior to discharge, much less disruptive, seemed cognitively more intact. REVIEW OF SYSTEMS: Prior to discharge ambulation impaired, in wheelchair. No CV, , pulmonary, eye system symptoms on review. MENTAL STATUS EXAM: Oriented to herself and situation. Speech moderate latency, often responses monosyllabic. Abstraction fair, computation impaired, language function intact, attention span short. Mood and affect improved. Short-term memory was impaired. LABORATORY DATA: Reviewed. FINAL DIAGNOSES: Major depressive disorder with psychotic features, obsessive compulsive disorder; major neurocognitive disorder, Alzheimer, vascular with delusion, depression in partial remission; anxiety disorder, unspecified; impulse control disorder, unspecified. Rest unchanged from admission. DISCHARGE MEDICATIONS: Please refer to the EMRAD. We had recommended placement in lower level of care facility prior to discharge, but the family opted to take her home with outpatient followup and social service staff coordinated all of this. Again, Seroquel could be tapered as an outpatient once she has been stable for a while. HODA FERRELL MD DR: ETHAN/hernesto JOB#: [id number] / [id number]
--- NOTE | 2017-09-25 04:54 | PN ---
DATE: 09/21/2017 This is a late entry of 09/21/2017 covers elements not covered in my initial note of 09/21/2017. SUBJECTIVE: I met with the patient in the evening. The patient has refused some of her medications. Ativan is being tapered gradually and a taper schedule will be left as part of discharge instructions. She slept 4-3/4 hours. REVIEW OF SYSTEMS: Ambulation impaired, in wheelchair. No CV, , pulmonary, eye system symptoms on review. MENTAL STATUS EXAM: Oriented to herself and situation. Speech has some latency, coherent. Abstraction fair, computation impaired, language function intact. Attention span short. Short term memory is impaired. IMPRESSION: Unchanged. PLAN: Continue current psychotropics. MAN Lavon FERRELL MD DR: ETHAN/hernesto JOB#: [id number] / [id number]
== END 2017-09-22 11:00 | disposition home health service (06) | DRG 885 ==
LOC: GEROPSY 18:55
PROVIDERS: ADMIT Psychiatry & Neurology Psychiatry; ATTEND Psychiatry & Neurology Psychiatry
DX: F33.3 Major depressive disorder, recurrent, severe with psychotic symptoms (principal); G40.409 Other generalized epilepsy and epileptic syndromes, not intractable, without status epilepticus; F01.51 Vascular dementia, unspecified severity, with behavioral disturbance; G62.9 Polyneuropathy, unspecified; G30.0 Alzheimer's disease with early onset; R45.851 Suicidal ideations; F02.81 Dementia in other diseases classified elsewhere, unspecified severity, with behavioral disturbance; N39.0 Urinary tract infection, site not specified; J44.9 Chronic obstructive pulmonary disease, unspecified; I10 Essential (primary) hypertension; E78.5 Hyperlipidemia, unspecified; F41.9 Anxiety disorder, unspecified; F42.9 Obsessive-compulsive disorder, unspecified; F63.9 Impulse disorder, unspecified; F10.10 Alcohol abuse, uncomplicated; Z87.01 Personal history of pneumonia (recurrent); Z91.19 Patient's noncompliance with other medical treatment and regimen; Z79.899 Other long term (current) drug therapy
CPT/HCPCS: 36415; 71045; 74018; 74176; 80048; 80053; 80061; 80175; 80183; 81001; 82306; 82607; 82803; 82947; 83036; 83540; 83550; 83605; 83735; 84436; 84443; 84480; 85025; 86593; 87086; 87186; 95816; Q0162; 97110; 97116; 97530; 97535